=== PATIENT | female | born 1965 | race Caucasian/White ===

== ENCOUNTER 2016-08-29 20:02 | Emergency (ER) | payer OTHER ==
[2016-08-29] MEDS ORDERED: ORPHENADRINE 30 MG/ML 2 ML VIAL IM STA (22:30)
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
--- NOTE | 2016-08-29 23:17 | XR ---
EXAMINATION TYPE: XR cervical spine comp DATE OF EXAM: 08/29/2016 10:42 PM CLINICAL HISTORY: Neck pain after seizure. COMPARISON: 05/11/2016 TECHNIQUE: Frontal, lateral, oblique, swimmers, and open mouth view of the cervical spine are obtaine d. FINDINGS: There is straightening of normal cervical lordosis probably related to pain and muscle spasm. The cervical spine is visualized in its entirety from C1 thru the top of T1 level. It is satisfactor y in alignment without evidence of acute fracture or dislocation. The C7 vertebra is somewhat poorly visualized in the lateral view.. The pre-vertebral soft tissue appears within normal limits. Disc sp aces are well preserved. The C1-C2 articulation is unremarkable on the open mouth view. The oblique images are within normal limits. Multilevel mild degenerative changes and endplate spondylosis is not ed with facet joint arthrosis in the cervical spine. IMPRESSION: No acute fracture or dislocation is seen in the cervical spine. The C7 vertebra is somew hat poorly visualized in the lateral view. Multilevel mild degenerative changes in the cervical spine. If clinical symptoms persist a CT scan or MRI scan would be helpful. There is no significant interval change. ICD 10 NO FRACTURE, INITIAL EVALUATION
--- NOTE | 2016-08-30 00:54 | US ---
EXAMINATION TYPE: US venous doppler duplex LE LT DATE OF EXAM: 08/29/2016 11:44 PM COMPARISON: on PACS CLINICAL HISTORY: left leg pain, hx of blood clot in left leg, not on blood thinners. SIDE PERFORMED: Left VESSELS IMAGED: External Iliac Vein (EIV) Common Femoral Vein Deep Femoral Vein Greater Saphenous Vein * Femoral Vein Popliteal Vein Small Saphenous Vein * Proximal Calf Veins (* superficial vessels Normal phasic flow, augmentation and compression is demonstrated in the left common femoral, superfic ial femoral and popliteal veins without definite evidence of acute deep venous thrombosis in the left lower extremity. IMPRESSION: 1. No definite evidence of deep venous thrombosis in the visualized left lower extremity deep veins. 2. No significant interval change.
[2016-08-30 01:10] VITALS: BP 132/72; PULSE 82; RESP 18; TEMP 96.5
== END 2016-08-30 01:19 | disposition home or self-care (01) ==
LOC: EC 20:02
DX: M62.838 Other muscle spasm (principal); M79.605 Pain in left leg; E11.9 Type 2 diabetes mellitus without complications; J45.909 Unspecified asthma, uncomplicated; G40.909 Epilepsy, unspecified, not intractable, without status epilepticus; M79.7 Fibromyalgia; I10 Essential (primary) hypertension; G43.909 Migraine, unspecified, not intractable, without status migrainosus; K21.9 Gastro-esophageal reflux disease without esophagitis; M19.90 Unspecified osteoarthritis, unspecified site; E66.01 Morbid (severe) obesity due to excess calories; Z79.899 Other long term (current) drug therapy; Z86.718 Personal history of other venous thrombosis and embolism; Z79.4 Long term (current) use of insulin; Z79.84 Long term (current) use of oral hypoglycemic drugs; G89.29 Other chronic pain; Z88.8 Allergy status to other drugs, medicaments and biological substances; Z88.5 Allergy status to narcotic agent; Z88.0 Allergy status to penicillin; Z91.040 Latex allergy status; Z88.1 Allergy status to other antibiotic agents; Z88.2 Allergy status to sulfonamides; Z91.048 Other nonmedicinal substance allergy status; Z79.891 Long term (current) use of opiate analgesic; Z68.43 Body mass index [BMI] 50.0-59.9, adult
CPT/HCPCS: 96372; 99284; 72050; 93971; J2360

== ENCOUNTER 2016-10-08 06:12 | Emergency (ER) | payer OTHER ==
[2016-10-08 06:18] VITALS: BP 131/80; PULSE 100; RESP 20; TEMP 97.7
[2016-10-08] MEDS ORDERED: KETOROLAC 60 MG/2 ML VIAL IM STA (06:35)
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
== END 2016-10-08 06:45 | disposition home or self-care (01) ==
LOC: EC 06:12
DX: G89.29 Other chronic pain (principal); M79.601 Pain in right arm; M54.9 Dorsalgia, unspecified; E11.9 Type 2 diabetes mellitus without complications; I10 Essential (primary) hypertension; G40.909 Epilepsy, unspecified, not intractable, without status epilepticus; M79.7 Fibromyalgia; J45.909 Unspecified asthma, uncomplicated; Z86.718 Personal history of other venous thrombosis and embolism; E66.01 Morbid (severe) obesity due to excess calories; G43.909 Migraine, unspecified, not intractable, without status migrainosus; Z79.4 Long term (current) use of insulin; Z79.84 Long term (current) use of oral hypoglycemic drugs; Z79.51 Long term (current) use of inhaled steroids; Z79.891 Long term (current) use of opiate analgesic; Z79.899 Other long term (current) drug therapy; Z88.0 Allergy status to penicillin; Z88.5 Allergy status to narcotic agent; Z88.6 Allergy status to analgesic agent; Z88.1 Allergy status to other antibiotic agents; Z88.2 Allergy status to sulfonamides; Z91.040 Latex allergy status; M19.90 Unspecified osteoarthritis, unspecified site
CPT/HCPCS: 99283; 96372; J1885

== ENCOUNTER → 2016-10-08 | Outpatient (CLI) | payer OTHER ==
--- NOTE | 2016-10-11 12:36 | MM ---
Reason for exam: screening (asymptomatic). Last mammogram was performed 1 year and 3 months ago. History: Patient is postmenopausal. Family history of breast cancer in mother at age 60. Cancelled Right US Needle Biopsy of the right breast, April 03, 2007. Physical Findings: A clinical breast exam by your physician is recommended on an annual basis and results should be correlated with mammographic findings. MG Screening Mammo w CAD Bilateral CC and MLO view(s) were taken. Prior study comparison: July 09, 2015, bilateral MG screening mammo w CAD. June 04, 2014, bilateral MG screening mammo w CAD. June 18, 2013, [facility] DIGITAL BILATERAL MAMMOGRAM w/CAD. There are scattered fibroglandular densities. There is chronic nodularity in the left breast. Bilateral vascular and secretory calcifications are benign and unchanged. No significant changes when compared with prior studies. ASSESSMENT: Negative, BI-RAD 1 RECOMMENDATION: Routine screening mammogram of both breasts in 1 year.
== END | disposition home or self-care (01) ==
LOC: RADMAMWWP 15:21
PROVIDERS: ATTEND Family Medicine
DX: Z12.31 Encounter for screening mammogram for malignant neoplasm of breast (principal)

== ENCOUNTER 2016-10-21 22:18 | Emergency (ER) | payer OTHER ==
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
[2016-10-21] MEDS ORDERED: SODIUM CHLORIDE 0.9% 1,000 ML IV ONE (22:48)
[2016-10-21 23:06] LABS: Basophils # (A) 0.1 k/uL (0-0.2); Basophils % (A) 1 %; CH 30.5; CHCM 32.8; Eosinophils # (A) 0.5 k/uL (0-0.7); Eosinophils % (A) 5 %; HCT 47.7 % (34.0-46.0); HDW 2.68; HGB 15.3 gm/dL (11.4-16.0); Luc # (Auto) 0.35; Luc % (Auto) 4; Lymphocytes # (A) 3.6 k/uL (1.0-4.8); Lymphocytes % (A) 36 %; MCH 29.9 pg (25.0-35.0); MCV 93.2 fL (80.0-100.0); Mean Platelet Volume 7.4; Monocytes # (A) 0.4 k/uL (0-1.0); Monocytes % (A) 4 %; Neutrophils # (A) 5.1 k/uL (1.3-7.7); Neutrophils % (A) 51 %; RBC 5.12 m/uL (3.80-5.40); RDW 13.1 % (11.5-15.5); WBC 10.1 k/uL (3.8-10.6)
[2016-10-21 23:17] LABS: Calcium 9.6 mg/dL (8.4-10.2); Potassium 4.5 mmol/L (3.5-5.1); Total Bilirubin 1.2 mg/dL (0.2-1.3); Total Protein 7.9 g/dL (6.3-8.2)
[2016-10-21] MEDS ORDERED: MORPHINE SULFATE ER 30 MG TABLET PO STA (23:21)
[2016-10-21 23:23] LABS: INR 1.1 (<1.1); Partial Thromboplastin Time 21.2 sec (22.0-30.0)
--- NOTE | 2016-10-22 00:04 | US ---
EXAM: US Duplex Right Upper Extremity Veins. CLINICAL HISTORY: Reason: Pain TECHNIQUE: Real-time ultrasound scan of the veins of the right upper extremity with color Doppler flow, spectral waveform analysis and compression. COMPARISON: No relevant prior studies available. FINDINGS: Deep veins: Unremarkable. No DVT in the internal jugular, subclavian, axillary, or brachial veins. Superficial veins: Unremarkable. No thrombus in the visualized superficial veins. Soft tissues: No acute findings. IMPRESSION: Normal right upper extremity duplex venous ultrasound.
[2016-10-22 00:11] VITALS: BP 106/70; PULSE 91; RESP 18; TEMP 98.2
== END 2016-10-22 00:20 | disposition home or self-care (01) ==
LOC: EC 22:18
DX: M79.601 Pain in right arm (principal); G89.29 Other chronic pain; E11.9 Type 2 diabetes mellitus without complications; J45.909 Unspecified asthma, uncomplicated; E66.01 Morbid (severe) obesity due to excess calories; I10 Essential (primary) hypertension; M79.7 Fibromyalgia; G40.909 Epilepsy, unspecified, not intractable, without status epilepticus; M19.90 Unspecified osteoarthritis, unspecified site; Z79.84 Long term (current) use of oral hypoglycemic drugs; Z86.718 Personal history of other venous thrombosis and embolism; Z79.4 Long term (current) use of insulin; Z88.5 Allergy status to narcotic agent; Z88.0 Allergy status to penicillin; Z91.040 Latex allergy status; Z88.2 Allergy status to sulfonamides; Z91.048 Other nonmedicinal substance allergy status; Z79.899 Other long term (current) drug therapy; Z79.891 Long term (current) use of opiate analgesic; Z79.51 Long term (current) use of inhaled steroids
CPT/HCPCS: 36415; 80053; 84439; 84443; 85025; 85610; 85730; 93005; 96360; 99284

== ENCOUNTER → 2016-11-01 | Outpatient (CLI) | payer OTHER ==
[2016-11-01 13:32] LABS: CH 30.5; CHCM 32.1; HCT 46.3 % (34.0-46.0); HDW 2.54; HGB 14.6 gm/dL (11.4-16.0); MCH 30.1 pg (25.0-35.0); MCHC 31.6 g/dL (31.0-37.0); MCV 95.2 fL (80.0-100.0); Mean Platelet Volume 9.1; RBC 4.86 m/uL (3.80-5.40); RDW 12.6 % (11.5-15.5); WBC 6.7 k/uL (3.8-10.6)
[2016-11-01 13:51] LABS: ALT 74 U/L (9-52); AST 48 U/L (14-36); Alkaline Phosphatase 192 U/L (38-126); Anion Gap 12 mmol/L; Blood Urea Nitrogen 28 mg/dL (7-17); Calcium 9.7 mg/dL (8.4-10.2); Carbon Dioxide 26 mmol/L (22-30); Chloride 100 mmol/L (98-107); Glucose 407 mg/dL (74-99); Magnesium 1.6 mg/dL (1.6-2.3); Non-African American GFR(MDRD) 52 (>60 ml/min/1.73 sqM); Potassium 4.5 mmol/L (3.5-5.1); Sodium 138 mmol/L (137-145); Total Bilirubin 0.6 mg/dL (0.2-1.3); Total Protein 7.6 g/dL (6.3-8.2)
== END | disposition home or self-care (01) ==
LOC: LABWHC1 12:58
PROVIDERS: ATTEND Family Medicine
DX: G62.9 Polyneuropathy, unspecified (principal); E11.65 Type 2 diabetes mellitus with hyperglycemia
CPT/HCPCS: 36415; 80053; 83036; 83735; 83921; 84443; 85027

== ENCOUNTER → 2016-11-08 | Outpatient (CLI) | payer OTHER ==
--- NOTE | 2016-11-10 14:48 | P.ARTDOP ---
Arterial Doppler Upper EXTREMITY ARTERIAL DOPPLER: DATE OF SERVICE: 11/08/2016 Reason for study: Right arm burning and pain. Doppler waveforms: Multiphasic bilaterally throughout. Pressure gradients: No right to left or segmental pressure gradients. Impression: Normal upper extremity arterial Doppler down to the wrist. Also note finger pressures are normal..
== END ==
LOC: RADUSWWP 12:58
PROVIDERS: ATTEND Family Medicine
DX: R51 Headache (principal); R29.898 Other symptoms and signs involving the musculoskeletal system; E11.40 Type 2 diabetes mellitus with diabetic neuropathy, unspecified; M79.601 Pain in right arm
CPT/HCPCS: 93923

== ENCOUNTER 2016-11-20 23:04 | Emergency (ER) | payer OTHER ==
[2016-11-21 01:06] LABS: Basophils # (A) 0.1 k/uL (0-0.2); Basophils % (A) 1 %; CH 30.1; CHCM 32.9; Eosinophils # (A) 0.2 k/uL (0-0.7); Eosinophils % (A) 2 %; HCT 44.7 % (34.0-46.0); HDW 2.63; HGB 14.3 gm/dL (11.4-16.0); Luc # (Auto) 0.28; Luc % (Auto) 3; Lymphocytes # (A) 3.7 k/uL (1.0-4.8); Lymphocytes % (A) 34 %; MCH 29.4 pg (25.0-35.0); MCV 91.9 fL (80.0-100.0); Mean Platelet Volume 7.3; Monocytes # (A) 0.6 k/uL (0-1.0); Monocytes % (A) 6 %; Neutrophils # (A) 5.7 k/uL (1.3-7.7); Neutrophils % (A) 54 %; RBC 4.86 m/uL (3.80-5.40); RDW 12.6 % (11.5-15.5); WBC 10.6 k/uL (3.8-10.6); WBC (Perox) 10.84
[2016-11-21 01:20] LABS: C Reactive Protein 14.2 mg/L (<10.0); Calcium 10.2 mg/dL (8.4-10.2); Potassium 4.3 mmol/L (3.5-5.1)
--- NOTE | 2016-11-21 01:53 | XR ---
EXAM: XR Cervical Spine, 4 or 5 Views. CLINICAL HISTORY: Reason: Pain TECHNIQUE: Frontal, lateral and oblique views of the cervical spine. COMPARISON: 08/29/16 radiographs. FINDINGS: Vertebrae: The cervicothoracic junction is again poorly seen on the single lateral view, with grossly intact vertebral body heights and alignment at that level on the AP and bilateral oblique views. Otherwise, vertebral body heights and alignment are maintained without acute fracture seen. There is again mild straightening of the normal cervical lordosis, that is nonspecific. Disc spaces: No acute findings. There is mild multilevel cervical spondylosis including endplate, uncovertebral and facet degenerative changes. There is associated bilateral foraminal narrowing most apparent at C3-4 and C4-5. Soft tissues: The prevertebral soft tissues are within normal limits. IMPRESSION: 1. Evaluation of the cervicothoracic junction is again limited on the lateral view. Allowing for this, no interval compression deformity, acute fracture or change in alignment is seen. 2. Clinical clearance of the cervical spine is still recommended. 3. Cervical spondylosis and nonspecific straightening of the normal cervical lordosis again present, as above.
[2016-11-21 02:34] VITALS: RESP 18
[2016-11-21] MEDS ORDERED: HYDROcodone/APAP 7.5-325MG 1 EACH TAB PO ONE (04:22)
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
[2016-11-21] MEDS ORDERED: MORPHINE SULFATE 4 MG/ML SYRINGE IV STA (04:45)
[2016-11-21] MEDS ORDERED: SODIUM CHLORIDE 0.9% 1,000 ML IV ONE (04:45)
[2016-11-21 06:35] VITALS: BP 98/59; PULSE 82; TEMP 97.9
== END 2016-11-21 07:12 | disposition left against medical advice (07) ==
LOC: EC 23:04
DX: N17.9 Acute kidney failure, unspecified (principal); I12.9 Hypertensive chronic kidney disease with stage 1 through stage 4 chronic kidney disease, or unspecified chronic kidney disease; M54.2 Cervicalgia; N18.9 Chronic kidney disease, unspecified; E11.9 Type 2 diabetes mellitus without complications; M79.7 Fibromyalgia; K21.9 Gastro-esophageal reflux disease without esophagitis; G40.909 Epilepsy, unspecified, not intractable, without status epilepticus; M19.90 Unspecified osteoarthritis, unspecified site; E66.01 Morbid (severe) obesity due to excess calories; Z79.4 Long term (current) use of insulin; Z79.84 Long term (current) use of oral hypoglycemic drugs; Z79.51 Long term (current) use of inhaled steroids; Z79.891 Long term (current) use of opiate analgesic; Z79.899 Other long term (current) drug therapy; Z88.0 Allergy status to penicillin; Z88.1 Allergy status to other antibiotic agents; Z88.2 Allergy status to sulfonamides; Z88.5 Allergy status to narcotic agent; Z88.6 Allergy status to analgesic agent; Z91.040 Latex allergy status; Z86.718 Personal history of other venous thrombosis and embolism
CPT/HCPCS: 36415; 72050; 80048; 84484; 85025; 86140; 93005; 96360; 96361; 99284

== ENCOUNTER 2016-11-21 08:59 | Inpatient (IN) | payer OTHER ==
[2016-11-21 09:58] LABS: Basophils # (A) 0.1 k/uL (0-0.2); Basophils % (A) 1 %; CH 30.2; CHCM 32.5; Eosinophils # (A) 0.5 k/uL (0-0.7); Eosinophils % (A) 4 %; HCT 43.2 % (34.0-46.0); HDW 2.59; HGB 14.1 gm/dL (11.4-16.0); Luc # (Auto) 0.39; Luc % (Auto) 3; Lymphocytes # (A) 4.6 k/uL (1.0-4.8); Lymphocytes % (A) 36 %; MCH 30.4 pg (25.0-35.0); MCHC 32.6 g/dL (31.0-37.0); MCV 93.3 fL (80.0-100.0); Mean Platelet Volume 7.5; Monocytes # (A) 0.8 k/uL (0-1.0); Monocytes % (A) 6 %; Neutrophils # (A) 6.5 k/uL (1.3-7.7); Neutrophils % (A) 51 %; RBC 4.63 m/uL (3.80-5.40); RDW 12.9 % (11.5-15.5); WBC 12.9 k/uL (3.8-10.6); WBC (Perox) 13.11
[2016-11-21 10:06] LABS: Calcium 9.7 mg/dL (8.4-10.2); Total Bilirubin 0.7 mg/dL (0.2-1.3); Total Protein 7.6 g/dL (6.3-8.2)
[2016-11-21 10:13] LABS: Magnesium 1.4 mg/dL (1.6-2.3); Potassium 4.8 mmol/L (3.5-5.1)
[2016-11-21 10:16] LABS: Creatine Kinase 514 U/L (30-135)
--- NOTE | 2016-11-21 10:26 | XR ---
EXAMINATION TYPE: XR chest 2V DATE OF EXAM: 11/21/2016 10:13 AM HISTORY: Chest Pain. REFERENCE: Previous study dated 02/05/2015. FINDINGS: The lungs are clear. Pleural spaces are clear. The heart is not enlarged. IMPRESSION: NORMAL CHEST.
[2016-11-21 10:29] LABS: Troponin I <0.012 ng/mL (0.000-0.034)
[2016-11-21 10:33] LABS: Creatine Kinase MB 6.5 ng/mL (0.0-2.4)
[2016-11-21] MEDS ORDERED: LORazepam 2 MG/ML SYRINGE IV STA (10:46)
[2016-11-21] MEDS ORDERED: SODIUM CHLORIDE 0.9% 1,000 ML IV STA (10:48)
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
[2016-11-21] MEDS ORDERED: INSULIN REGULAR 100 UNIT/ML VIAL IV ONE (11:24)
[2016-11-21] MEDS ORDERED: INSULIN REGULAR 100 UNIT/ML VIAL SQ ONE (11:24)
--- NOTE | 2016-11-21 11:35 | CT ---
EXAMINATION TYPE: CT cervical spine wo con DATE OF EXAM: 11/21/2016 11:24 AM COMPARISON: None. HISTORY: neck pain and numbness CT DLP: 999.8 mGycm Automated exposure control for dose reduction was used. TECHNIQUE: CT scan of the cervical spine is obtained without contrast, axial images are obtained, sa gittal and coronal reformatted images are also reviewed. FINDINGS: Visualized portions of the lungs are clear. There is a 9.6 mm left-sided thyroid nodule. Pr evertebral soft tissues are otherwise normal. There is some straightening of the normal cervical lordosis. Alignment is normal. There are small oss ific fragments both above and below the arch of C1. There is no associated soft tissue swelling. Thes e do not represent acute fractures. There is mild, diffuse disc space loss with relative sparing of C2-3. There is mild hypertrophic spon dylosis at C4-5. There is mild, diffuse uncovertebral joint disease. There is facet arthropathy on th e right at C2-3 and bilaterally at C3-4 there is no significant compressive discopathy. There is left -sided intervertebral foraminal narrowing at C3-4. There is bilateral intervertebral foraminal narrow ing at C4-5. IMPRESSION: 1. No acute osseous lesion. 2. Degenerative change. 3. No significant compressive discopathy. 4. Multilevel intervertebral foraminal narrowing.
[2016-11-21 12:28] LABS: INR 1.1 (<1.1); Partial Thromboplastin Time 22.1 sec (22.0-30.0); Prothrombin Time 11.1 sec (9.0-12.0)
[2016-11-21] MEDS ORDERED: NALOXONE 0.4 MG/ML 1 ML VIAL IV PRN ×2 (12:32→19:44)
[2016-11-21] MEDS ORDERED: ALBUTEROL NEBULIZED 2.5 MG/3 ML INHALATION PRN (12:39)
[2016-11-21 13:02] LABS: Glucose,Whole Blood 327 mg/dL (75-99)
[2016-11-21] MEDS ORDERED: SODIUM CHLORIDE 0.9% 1,000 ML IV ONE (13:06)
[2016-11-21 14:36] LABS: Glucose,Whole Blood 179 mg/dL (75-99)
[2016-11-21 14:53] LABS: Appearance,Urine Cloudy (Clear); Bacteria,Urine Rare /hpf; Bilirubin,Urine Negative (Negative); Glucose,Urine (UA) 3+ (Negative); Ketones,Urine Negative (Negative); Leukocyte Esterase,Urine Large (Negative); Mucus,Urine Occasional /hpf; Nitrite,Urine Negative (Negative); Particle Count 42469; Protein,Urine 1+ (Negative); RBC,Urine 17 /hpf (0-5); Specific Gravity,Urine 1.018 (1.001-1.035); Squamous Epithelial Cell,Urine 13 /hpf (0-4); UA Billing (MACRO vs. MICRO) MICRO; Urobilinogen,Urine <2.0 mg/dL (<2.0); WBC,Urine 41 /hpf (0-5)
[2016-11-21] MEDS ORDERED: cefTRIAXone 2,000 MG in SODIUM CHLORIDE 0.9% 100 ML IVPB STA (15:14)
[2016-11-21] MEDS: NOREPINEPHRINE 4 MG in SODIUM CHLORIDE 0.9% 250 ML IV SCH (15:29)
[2016-11-21] MEDS: MORPHINE SULFATE IR 15 MG TABLET PO SCH ×3 (15:45→22:42)
[2016-11-21 18:34] LABS: Glucose,Whole Blood 257 mg/dL (75-99)
[2016-11-21] MEDS: GABAPENTIN 400 MG CAP PO SCH ×3 (18:54→23:23)
[2016-11-21] MEDS: SODIUM CHLORIDE 0.9% 1,000 ML IV SCH (19:45)
[2016-11-21] MEDS ORDERED: Magnesium Replacement Protocol 1 EACH MISC MISCELLANE PRN (19:48)
[2016-11-21] MEDS: glipiZIDE 10 MG TAB PO SCH (19:51)
[2016-11-21] MEDS: INSULIN LISPRO (humaLOG) 300 UNIT/3 ML VIAL SQ SCH ×2 (19:52→21:27)
[2016-11-21] MEDS: MAGNESIUM SULFATE-D5W PMX 1 GM in DEXTROSE/WATER 1 100ML.BAG IVPB SCH ×3 (20:00→23:57)
[2016-11-21 20:16] LABS: Glucose,Whole Blood 280 mg/dL (75-99)
[2016-11-21 22:32] VITALS: BMI 53.8
[2016-11-21] MEDS: TOPIRAMATE 100 MG TAB PO SCH (22:39)
[2016-11-21] MEDS: QUEtiapine 100 MG TAB PO SCH (22:39)
[2016-11-21] MEDS: HEPARIN SODIUM,PORCINE 5,000 UNIT/ML 1 ML VIAL SQ SCH (23:24)
[2016-11-22] MEDS: INSULIN LISPRO (humaLOG) 300 UNIT/3 ML VIAL SQ SCH ×3 (02:51→08:21)
[2016-11-22 02:53] LABS: Glucose,Whole Blood 215 mg/dL (75-99)
[2016-11-22 05:00] LABS: Basophils # (A) 0.1 k/uL (0-0.2); Basophils % (A) 1 %; CH 30.2; CHCM 32.4; Eosinophils # (A) 0.5 k/uL (0-0.7); Eosinophils % (A) 5 %; HCT 39.4 % (34.0-46.0); HDW 2.63; HGB 12.5 gm/dL (11.4-16.0); Luc # (Auto) 0.26; Luc % (Auto) 3; Lymphocytes # (A) 3.5 k/uL (1.0-4.8); Lymphocytes % (A) 37 %; MCH 29.7 pg (25.0-35.0); MCHC 31.7 g/dL (31.0-37.0); MCV 93.5 fL (80.0-100.0); Monocytes # (A) 0.5 k/uL (0-1.0); Monocytes % (A) 5 %; Neutrophils # (A) 4.6 k/uL (1.3-7.7); Neutrophils % (A) 49 %; RBC 4.21 m/uL (3.80-5.40); RDW 12.6 % (11.5-15.5); WBC 9.4 k/uL (3.8-10.6); WBC (Perox) 10.55
[2016-11-22 05:09] LABS: Calcium 8.5 mg/dL (8.4-10.2); Magnesium 2.1 mg/dL (1.6-2.3); Phosphorous 5.1 mg/dL (2.5-4.5); Potassium 4.1 mmol/L (3.5-5.1); Total Bilirubin 0.5 mg/dL (0.2-1.3); Total Protein 6.6 g/dL (6.3-8.2)
[2016-11-22 05:43] LABS: Manual Review Performed
[2016-11-22] MEDS: SODIUM CHLORIDE 0.9% 1,000 ML IV SCH ×2 (07:54→15:21)
[2016-11-22 08:04] LABS: Glucose,Whole Blood 254 mg/dL (75-99)
[2016-11-22] MEDS: glipiZIDE 10 MG TAB PO SCH (08:20)
[2016-11-22] MEDS: PANTOPRAZOLE 40 MG TABLET PO SCH (08:21)
[2016-11-22] MEDS: HEPARIN SODIUM,PORCINE 5,000 UNIT/ML 1 ML VIAL SQ SCH ×2 (08:22→15:22)
[2016-11-22] MEDS: GABAPENTIN 400 MG CAP PO SCH (08:22)
[2016-11-22] MEDS: LORATADINE 10 MG TAB PO SCH (08:23)
[2016-11-22] MEDS: TOPIRAMATE 100 MG TAB PO SCH ×2 (08:23→20:33)
[2016-11-22] MEDS: CYCLOBENZAPRINE 10 MG TAB PO SCH (08:23)
[2016-11-22] MEDS: NYSTATIN 100,000 UNIT/GM POWD 15 GM TOPICAL SCH ×3 (08:23→20:34)
[2016-11-22] MEDS: MORPHINE SULFATE IR 15 MG TABLET PO SCH ×4 (08:25→20:36)
[2016-11-22] MEDS ORDERED: LINAGLIPTIN 5 MG TABLET PO SCH (09:00)
[2016-11-22] MEDS ORDERED: INSULIN GLARGINE 100 UNIT/ML 10 ML VIAL SQ SCH (09:00)
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
[2016-11-22] MEDS: NOREPINEPHRINE 4 MG in SODIUM CHLORIDE 0.9% 250 ML IV SCH (09:57)
[2016-11-22 12:07] LABS: Glucose,Whole Blood 285 mg/dL (75-99)
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
[2016-11-22] MEDS ORDERED: LORazepam 2 MG/ML SYRINGE IV PRN (12:16)
[2016-11-22] MEDS ORDERED: IV VANCOMYCIN PER PHARMACY 1 EACH MISC MISCELLANE PRN (12:17)
[2016-11-22] MEDS ORDERED: SODIUM CHLORIDE 0.9% 1,000 ML IV ONE ×2 (12:19→16:36)
[2016-11-22] MEDS ORDERED: VANCOMYCIN 2,000 MG in SODIUM CHLORIDE 0.9% 500 ML IVPB ONE (13:00)
[2016-11-22] MEDS: cefTRIAXone 2,000 MG in SODIUM CHLORIDE 0.9% 100 ML IVPB SCH (13:02)
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
[2016-11-22] MEDS: INSULIN REGULAR 100 UNIT in SODIUM CHLORIDE 0.9% 100 ML IV SCH (13:19)
[2016-11-22 13:20] LABS: Glucose,Whole Blood 232 mg/dL (75-99)
[2016-11-22 14:02] LABS: Glucose,Whole Blood 267 mg/dL (75-99)
--- NOTE | 2016-11-22 14:13 | US ---
EXAMINATION TYPE: US kidneys/renal and bladder DATE OF EXAM: 11/22/2016 1:36 PM COMPARISON: NONE CLINICAL HISTORY: BAY. Elevated creatinine as per RN EXAM MEASUREMENTS: Right Kidney: 9.6 x 4.8 x 6.7 cm Left Kidney: 11.9 x 5.5 x 4.8 cm limited by very large body habitus Right Kidney: No hydronephrosis or nephrolithiasis seen Left Kidney: No hydronephrosis or nephrolithiasis seen Bladder: empty Bilateral Jets seen: no There is no evidence for hydronephrosis at this point in time. No nephrolithiasis is seen. No miriam s are identified. The urinary bladder is limited due to incomplete distention.. IMPRESSION: No evidence of acute process.
--- NOTE | 2016-11-22 14:14 | US ---
EXAMINATION TYPE: US venous doppler duplex LE BI DATE OF EXAM: 11/22/2016 1:37 PM COMPARISON: NONE CLINICAL HISTORY: pain. High thigh pain left SIDE PERFORMED: bilateral VESSELS IMAGED: External Iliac Vein (EI) Common Femoral Vein Deep Femoral Vein Greater Saphenous Vein * Femoral Vein Popliteal Vein Small Saphenous Vein * (* superficial vessels) technically limited by patient very large body habitus ( abdominal probe used to image vessels) and agitation Right Leg: Negative for DVT Left Leg: Negative for DVT IMPRESSION: 1. Limited exam as discussed above. No diagnostic evidence of DVT as visualized. Correlate clinically given limitation of the exam.
[2016-11-22 15:11] LABS: Glucose,Whole Blood 275 mg/dL (75-99)
[2016-11-22] MEDS: GABAPENTIN 100 MG CAP PO SCH ×2 (15:22→20:33)
[2016-11-22 16:00] LABS: Glucose,Whole Blood 249 mg/dL (75-99)
[2016-11-22 17:05] LABS: Glucose,Whole Blood 220 mg/dL (75-99)
[2016-11-22 18:07] LABS: Glucose,Whole Blood 208 mg/dL (75-99)
[2016-11-22 18:59] LABS: Glucose,Whole Blood 186 mg/dL (75-99)
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
[2016-11-22 20:14] LABS: Glucose,Whole Blood 172 mg/dL (75-99)
[2016-11-22] MEDS: QUEtiapine 100 MG TAB PO SCH (20:33)
[2016-11-22 21:20] LABS: Glucose,Whole Blood 220 mg/dL (75-99)
[2016-11-22 22:06] LABS: Glucose,Whole Blood 228 mg/dL (75-99)
[2016-11-23 00:09] LABS: Glucose,Whole Blood 259 mg/dL (75-99)
[2016-11-23] MEDS: SODIUM CHLORIDE 0.9% 1,000 ML IV SCH ×3 (01:20→21:47)
[2016-11-23 01:58] LABS: Glucose,Whole Blood 215 mg/dL (75-99)
[2016-11-23] MEDS: MORPHINE SULFATE IR 15 MG TABLET PO SCH ×5 (01:58→21:45)
[2016-11-23] MEDS: HEPARIN SODIUM,PORCINE 5,000 UNIT/ML 1 ML VIAL SQ SCH ×3 (01:59→16:00)
[2016-11-23 04:13] LABS: Glucose,Whole Blood 165 mg/dL (75-99)
[2016-11-23 05:20] LABS: Basophils # (A) 0.1 k/uL (0-0.2); Basophils % (A) 1 %; CH 30.1; Eosinophils # (A) 0.3 k/uL (0-0.7); Eosinophils % (A) 6 %; HCT 34.2 % (34.0-46.0); HDW 2.65; HGB 11.5 gm/dL (11.4-16.0); Luc # (Auto) 0.16; Luc % (Auto) 3; Lymphocytes # (A) 2.2 k/uL (1.0-4.8); Lymphocytes % (A) 40 %; MCH 30.8 pg (25.0-35.0); MCHC 33.6 g/dL (31.0-37.0); MCV 91.7 fL (80.0-100.0); Mean Platelet Volume 7.3; Monocytes # (A) 0.4 k/uL (0-1.0); Monocytes % (A) 7 %; Neutrophils # (A) 2.3 k/uL (1.3-7.7); Neutrophils % (A) 43 %; RBC 3.73 m/uL (3.80-5.40); RDW 12.9 % (11.5-15.5); WBC 5.4 k/uL (3.8-10.6); WBC (Perox) 5.64
[2016-11-23 05:31] LABS: Glucose,Whole Blood 154 mg/dL (75-99)
[2016-11-23] MEDS: INSULIN REGULAR 100 UNIT in SODIUM CHLORIDE 0.9% 100 ML IV SCH (05:31)
[2016-11-23 05:38] LABS: Calcium 7.5 mg/dL (8.4-10.2); Magnesium 1.8 mg/dL (1.6-2.3); Phosphorous 2.9 mg/dL (2.5-4.5); Total Bilirubin 0.2 mg/dL (0.2-1.3); Total Protein 5.6 g/dL (6.3-8.2)
[2016-11-23] MEDS ORDERED: Magnesium Replacement Protocol 1 EACH MISC MISCELLANE PRN (05:55)
[2016-11-23] MEDS ORDERED: VANCOMYCIN 2,000 MG in SODIUM CHLORIDE 0.9% 500 ML IVPB SCH (06:00)
[2016-11-23] MEDS: MAGNESIUM SULFATE-D5W PMX 1 GM in DEXTROSE/WATER 1 100ML.BAG IVPB SCH ×2 (06:17→08:02)
[2016-11-23 07:02] LABS: Glucose,Whole Blood 149 mg/dL (75-99)
[2016-11-23 08:01] LABS: Glucose,Whole Blood 141 mg/dL (75-99)
[2016-11-23] MEDS: PANTOPRAZOLE 40 MG TABLET PO SCH (08:03)
[2016-11-23] MEDS: CYCLOBENZAPRINE 10 MG TAB PO SCH (08:04)
[2016-11-23] MEDS: GABAPENTIN 100 MG CAP PO SCH ×3 (08:05→21:45)
[2016-11-23] MEDS: NYSTATIN 100,000 UNIT/GM POWD 15 GM TOPICAL SCH ×3 (08:05→21:56)
[2016-11-23] MEDS: TOPIRAMATE 100 MG TAB PO SCH ×2 (08:05→21:45)
[2016-11-23] MEDS: LORATADINE 10 MG TAB PO SCH (08:05)
[2016-11-23] MEDS ORDERED: [UNRECOGNIZED DRUG - OTHER] PO SCH (09:00)
--- NOTE | 2016-11-23 09:04 | P.PN ---
Subjective A critically care consultation was requested on this 51-year-old morbidly obese female patient due to hypotension. The patient presented emergency department yesterday having neck pain and subsequently became evident that the pain was throughout her body knowing that the patient is having currently pain in her thigh, back, along with her neck. She has no neck stiffness. No headache. No change in mental status. No photophobia. CAT scan of the cervical spine was done and it showed no evidence of any epidural abscess or osseous lesions. The patient was subsequently found to be hypotensive. She was given IV fluids and despite that she remained hypotensive in the emergency department and based on that she was started on pressors and following that the patient was brought into the intensive care unit. My understanding is that the patient has received a total of 2 L of IV fluid in the form of normal saline and earlier this morning she was on norepinephrine infusion running at the rate of 10 mcg/m and the nurses were able to titrate off however at the time I december evaluation the patient's blood pressure was in the mid 70s systolic and the pressors were restarted. Her pain is waxing and waning and affecting throughout her body. The patient has no mental status change. The blood cultures showing gram- positive cocci. The patient has been given 2 g of Rocephin in the emergency department. The chest x-ray was clear and a urinalysis is showing white cell count of 41 with some rare bacteria. No lactic acid level has been obtained. No cardiac enzymes have been obtained. The patient was found to be in acute kidney injury. Her creatinine was at 2.7 and is currently down to 2.2 and she is producing adequate amount of urine output. The blood sugars were elevated and currently she is still elevated and her most recent blood sugar is at 254. She has a mild anion gap metabolic acidosis with a bicarb level of 20 and a gap of 15. No history of any cardiac disease. No history of congestion heart failure. The patient has had previous hospitalization for complications of diabetes mellitus. On 11/23/2016 the patient is being seen in follow-up. She is improved and she is hemodynamically stable and she is off pressors for the past 4-1/2 hours. The patient is a bit lethargic study and she is awake. The patient is following commands. The blood cultures came back coagulase-negative staph. The urine cultures came back positive for strep group B. The patient remains on a combination of Rocephin and vancomycin. We'll function is improving. Creatinine is down to 1.3. The urine output is adequate. The patient on insulin drip at 4 units an hour for blood sugar control. Lactic acid level was nonelevated. Ultrasound of the lower extremity showed no evidence of DVT. Ultrasound the kidneys was negative. The echo results are still pending. Objective - Vital Signs Vital signs: Vital Signs Temp 97.7 F 11/23/16 08:00 Pulse 72 11/23/16 08:00 Resp 12 11/23/16 08:00 BP 85/65 11/23/16 08:00 Pulse Ox 100 11/23/16 08:00 Intake & Output 11/22/16 11/23/16 11/23/16 18:59 06:59 18:59 Intake Total 4747.270 1915.526 461.728 Output Total 1369 2200 225 Balance 3378.270 -284.474 236.728 Weight 146.8 kg Intake: IV 1100 1397.8 100 Norepinephrine 4 mg In 97.8 Sodium Chloride 0.9% 250 ml @ Titrate IV .Q0M [facility] Rx#:[id number] Sodium Chloride 0.9% 1, 1100 1300 100 000 ml @ 100 mls/hr IV . Q10H [facility] Rx#:[id number] Intake, IV Titration 2897.270 267.726 111.728 Amount Insulin Regular 100 unit 42.166 58.834 11.728 In Sodium Chloride 0.9% 100 ml @ Per Protocol IV .Q0M [facility] Rx#:[id number] Magnesium Sulfate-D5w Pmx 100 100 1 gm In Dextrose/Water 1 100ml.bag @ 100 mls/hr IVPB Q1H [facility] Rx#: [id number] Norepinephrine 4 mg In 254.104 108.892 Sodium Chloride 0.9% 250 ml @ Titrate IV .Q0M [facility] Rx#:[id number] Sodium Chloride 0.9% 1, 1000 000 ml @ 999 mls/hr IV . Q1H1M ONE Rx#:[id number] Sodium Chloride 0.9% 1, 1000 000 ml @ 999 mls/hr IV . Q1H1M ONE Rx#:[id number] Vancomycin 2,000 mg In 501 Sodium Chloride 0.9% 500 ml @ 167 mls/hr IVPB ONCE ONE Rx#:[id number] cefTRIAXone 2,000 mg In 100 Sodium Chloride 0.9% 100 ml @ 100 mls/hr IVPB ONCE STA Rx#:[id number] Oral 750 250 250 Output: Urine 1369 2200 225 Other: Voiding Method Indwelling Catheter Indwelling Catheter Indwelling Catheter - Exam Morbidly obese, comfortable and calm, in acute distress.Head exam was generally normal. There was no scleral icterus or corneal arcus. Mucous membranes were moist. My normal neck the patient has significant crowding of the posterior oropharynx. The upper teeth are missing and the patient wears dentures. She has poor dentition and a lower jaw. Neck is supple. There is no neck stiffness. The patient is a full range of motion.Lungs were clear to auscultation and percussion, and with normal diaphragmatic excursion. No wheezes or rales were noted. Cardiac exam revealed the PMI to be normally situated and sized. The rhythm was regular and no extrasystoles were noted during several minutes of auscultation. The first and second heart sounds were normal and physiologic splitting of the second heart sound was noted. There were no murmurs, rubs, clicks, or gallops. Abdomen is soft and the organs cannot be accurately palpated as the patient is morbidly obese. There is no direct tenderness. There is no rebound tenderness. There is no guarding.Examination of the extremities revealed easily palpable radial, femoral and pedal pulses. There was no cyanosis, clubbing or edema. Neurologically the patient is awake and alert and neurologic exam is nonfocal. - Labs CBC & Chem 7: 11/23/16 04:33 11/23/16 04:33 Labs: Abnormal Lab Results - Last 24 Hours (Table) 11/22/16 11/22/16 11/22/16 Range/Units 04:33 12:05 12:28 RBC (3.80-5.40) m/uL ESR (0-20) mm/hr Chloride (98-107) mmol/L BUN (7-17) mg/dL Creatinine (0.52-1.04) mg/dL Glucose (74-99) mg/dL POC Glucose (mg/dL) 285 H (75-99) mg/dL Hemoglobin A1c 14.0 H (4.2-6.1) % Calcium (8.4-10.2) mg/dL Creatine Kinase 590 H (30-135) U/L Total Protein (6.3-8.2) g/dL Albumin (3.5-5.0) g/dL 11/22/16 11/22/16 11/22/16 Range/Units 13:19 14:01 15:10 RBC (3.80-5.40) m/uL ESR (0-20) mm/hr Chloride (98-107) mmol/L BUN (7-17) mg/dL Creatinine (0.52-1.04) mg/dL Glucose (74-99) mg/dL POC Glucose (mg/dL) 232 H 267 H 275 H (75-99) mg/dL Hemoglobin A1c (4.2-6.1) % Calcium (8.4-10.2) mg/dL Creatine Kinase (30-135) U/L Total Protein (6.3-8.2) g/dL Albumin (3.5-5.0) g/dL 11/22/16 11/22/16 11/22/16 Range/Units 15:58 17:04 18:06 RBC (3.80-5.40) m/uL ESR (0-20) mm/hr Chloride (98-107) mmol/L BUN (7-17) mg/dL Creatinine (0.52-1.04) mg/dL Glucose (74-99) mg/dL POC Glucose (mg/dL) 249 H 220 H 208 H (75-99) mg/dL Hemoglobin A1c (4.2-6.1) % Calcium (8.4-10.2) mg/dL Creatine Kinase (30-135) U/L Total Protein (6.3-8.2) g/dL Albumin (3.5-5.0) g/dL 11/22/16 11/22/16 11/22/16 Range/Units 18:57 19:40 20:12 RBC (3.80-5.40) m/uL ESR 37 H (0-20) mm/hr Chloride (98-107) mmol/L BUN (7-17) mg/dL Creatinine (0.52-1.04) mg/dL Glucose (74-99) mg/dL POC Glucose (mg/dL) 186 H 172 H (75-99) mg/dL Hemoglobin A1c (4.2-6.1) % Calcium (8.4-10.2) mg/dL Creatine Kinase (30-135) U/L Total Protein (6.3-8.2) g/dL Albumin (3.5-5.0) g/dL 11/22/16 11/22/16 11/23/16 Range/Units 21:19 22:05 00:08 RBC (3.80-5.40) m/uL ESR (0-20) mm/hr Chloride (98-107) mmol/L BUN (7-17) mg/dL Creatinine (0.52-1.04) mg/dL Glucose (74-99) mg/dL POC Glucose (mg/dL) 220 H 228 H 259 H (75-99) mg/dL Hemoglobin A1c (4.2-6.1) % Calcium (8.4-10.2) mg/dL Creatine Kinase (30-135) U/L Total Protein (6.3-8.2) g/dL Albumin (3.5-5.0) g/dL 11/23/16 11/23/16 11/23/16 Range/Units 01:56 04:11 04:33 RBC 3.73 L (3.80-5.40) m/uL ESR (0-20) mm/hr Chloride (98-107) mmol/L BUN (7-17) mg/dL Creatinine (0.52-1.04) mg/dL Glucose (74-99) mg/dL POC Glucose (mg/dL) 215 H 165 H (75-99) mg/dL Hemoglobin A1c (4.2-6.1) % Calcium (8.4-10.2) mg/dL Creatine Kinase (30-135) U/L Total Protein (6.3-8.2) g/dL Albumin (3.5-5.0) g/dL 11/23/16 11/23/16 11/23/16 Range/Units 04:33 05:30 07:00 RBC (3.80-5.40) m/uL ESR (0-20) mm/hr Chloride 112 H (98-107) mmol/L BUN 20 H (7-17) mg/dL Creatinine 1.30 H (0.52-1.04) mg/dL Glucose 161 H (74-99) mg/dL POC Glucose (mg/dL) 154 H 149 H (75-99) mg/dL Hemoglobin A1c (4.2-6.1) % Calcium 7.5 L (8.4-10.2) mg/dL Creatine Kinase (30-135) U/L Total Protein 5.6 L (6.3-8.2) g/dL Albumin 2.7 L (3.5-5.0) g/dL 11/23/16 Range/Units 07:59 RBC (3.80-5.40) m/uL ESR (0-20) mm/hr Chloride (98-107) mmol/L BUN (7-17) mg/dL Creatinine (0.52-1.04) mg/dL Glucose (74-99) mg/dL POC Glucose (mg/dL) 141 H (75-99) mg/dL Hemoglobin A1c (4.2-6.1) % Calcium (8.4-10.2) mg/dL Creatine Kinase (30-135) U/L Total Protein (6.3-8.2) g/dL Albumin (3.5-5.0) g/dL Microbiology - Last 24 Hours (Table) 11/21/16 14:45 Urine Culture - Final Urine,Voided Strep agalactiae - (group b) Assessment and Plan Plan: Assessment 1 acute hypotension, nonresponsive to fluid resuscitation and the patient is currently pressor dependent. Rule out septic shock knowing that the patient has gram-positive cocci in the blood and preliminary cultures have indicated positive gram-positive cocci. Further investigation needs to follow to identify source of an infection. On 11/23/2016, the patient's hypotension has recovered. We think it's a hypovolemic/septic hypotension. The blood cultures came back positive for coagulase-negative staph. There is a strep group B in the urine which probably is a representation of an underlying urine checked infection. The patient was covered with accommodation of Rocephin and vancomycin. I think the vancomycin can be discontinued. The fluid also can be switched to KVO as the patient is adequately resuscitated at this point. The patient is eating well. 2 acute kidney injury, nonoliguric, recovering 3 diabetes mellitus with a component of hyperglycemia and poorly controlled blood sugars, HbA1c was at 15 4 morbid obesity with a BMI 53.9 5 fibromyalgia with chronic pain 6 diffuse body aches including the neck back and thigh pain. No evidence of rhabdomyolysis 7 chronic insomnia 8 remote history of DVT, negative Dopplers 9 seizure disorder 10 bronchial asthma 11 chronic back pain Plan The patient will be given IV fluids and cut down the rate to 40 mL an hour. The patient will be taken off vancomycin. Continue Rocephin. We will stop the insulin drip it was this patient to have routine long-acting insulin and oral hypoglycemic agents. We will probably move out of the intensive care unit at a later stage today once we make sure she is able to sit up on a chair and her blood sugars are controlled while being off insulin drip.
[2016-11-23 09:05] LABS: Glucose,Whole Blood 172 mg/dL (75-99)
[2016-11-23] MEDS: INSULIN DETEMIR 100 UNIT/ML 10 ML VIAL SQ SCH (09:40)
[2016-11-23] MEDS: cefTRIAXone 2,000 MG in SODIUM CHLORIDE 0.9% 100 ML IVPB SCH (09:58)
[2016-11-23] MEDS ORDERED: LIDOCAINE 2% (PF) 20 MG/ML 10ML SQ ONE (10:59)
--- NOTE | 2016-11-23 11:38 | ECHOF ---
Referral Reason:hypotension MEASUREMENTS -------- HEIGHT: 165.1 cm WEIGHT: 146.5 kg BP: 65/47 RVIDd: 3.5 cm (< 3.3) IVSd: 1.1 cm (0.6 - 1.1) LVIDd: 4.3 cm (3.9 - 5.3) LVPWd: 1.1 cm (0.6 - 1.1) IVSs: 1.6 cm LVIDs: 3.1 cm LVPWs: 1.8 cm LA Diam: 3.0 cm (2.7 - 3.8) LAESV Index (A-L): 12.44 ml/m Ao Diam: 3.7 cm (2.0 - 3.7) AV Cusp: 2.4 cm (1.5 - 2.6) LA Diam: 2.9 cm (2.7 - 3.8) MV EXCURSION: 10.065 mm (> 18.000) MV EF SLOPE: 42 mm/s (70 - 150) EPSS: 1.0 cm MV E Alexy: 0.81 m/s MV DecT: 155 ms MV A Alexy: 0.60 m/s MV E/A Ratio: 1.35 RAP: 5.00 mmHg RVSP: 36.08 mmHg FINDINGS -------- Sinus rhythm. This was a technically adequate study. There is borderline concentric left ventricular hypertrophy. Overall left ventricular systolic function is normal with, an EF between 60 - 65 %. The diastolic filling pattern is normal for the age of the patient 8.68. The right ventricle is mildly enlarged. Normal LA size by volume 22+/-6 ml/m2. The right atrium is normal in size. The aortic valve is trileaflet and appears structurally normal. Mild mitral annular calcification present. There is trace mitral regurgitation. Mild tricuspid regurgitation present. There is mild pulmonary hypertension. The right ventricular systolic pressure, as measured by Doppler, is 36.08mmHg. Pulmonic valve appears structurally normal. The aortic root size is normal. IVC Not well visulized. There is no pericardial effusion. CONCLUSIONS -------- 1. Sinus rhythm. 2. Mild mitral annular calcification present. 3. There is trace mitral regurgitation. 4. Mild tricuspid regurgitation present. 5. There is mild pulmonary hypertension. 6. The right ventricular systolic pressure, as measured by Doppler, is 36.08mmHg. 7. Pulmonic valve appears structurally normal. 8. The aortic root size is normal. 9. IVC Not well visulized. 10. There is no pericardial effusion. 11. This was a technically adequate study. 12. There is borderline concentric left ventricular hypertrophy. 13. Overall left ventricular systolic function is normal with, an EF between 60 - 65 %. 14. The diastolic filling pattern is normal for the age of the patient 8.68 15. The right ventricle is mildly enlarged. 16. Normal LA size by volume 22+/-6 ml/m2. 17. The right atrium is normal in size. 18. The aortic valve is trileaflet and appears structurally normal. NUTRITION CONSULTANT: Ralph Morales RDCS
[2016-11-23 12:02] LABS: Glucose,Whole Blood 269 mg/dL (75-99)
[2016-11-23 12:16] LABS: Hemoglobin A1C 13.9 % (4.2-6.1)
--- NOTE | 2016-11-23 13:15 | P.PN ---
Subjective Principal diagnosis: fever and hypotension 51-year-old female presents the emergency center from her home setting with concerns to fever. The patient is a very poor historian and the chart is reviewed including the emergency center note. Apparently the patient was having difficulties with increasing amounts of pain to her neck upper back and lower back. She counseling presented to the emergency center where she was found evidence of a fever as well as relative hypotension. She underwent fluid resuscitation. She was found to have evidence of markedly elevated blood glucose with a markedly elevated hemoglobin A1c. Review from prior records reveals that she was on insulin therapy at home. However she has great difficulties understanding how to care for herself and was not giving herself insulin at home. Patient complains of a history of fibromyalgia and chronic pain and requests her pain medications consistently. She is very sedated at this point in time. Further patient comes in the chart. Nursing staff relates that she's had no emesis, no diarrhea, no open skin wounds. Patient is now much more awake today. As complaints of generalized pain. We discussed that yesterday she was overly sedated. Likely due to the excessive effects of her standard morphine dosing that was being affected by her acute renal failure. Objective - Vital Signs Vital signs: Vital Signs Temp 98 F 11/23/16 12:00 Pulse 78 11/23/16 12:00 Resp 14 11/23/16 12:00 BP 118/67 11/23/16 12:00 Pulse Ox 95 11/23/16 12:00 Intake & Output 11/22/16 11/23/16 11/23/16 18:59 06:59 18:59 Intake Total 4747.270 1915.526 931.728 Output Total 1369 2200 835 Balance 3378.270 -284.474 96.728 Weight 146.8 kg Intake: IV 1100 1397.8 220 Norepinephrine 4 mg In 97.8 Sodium Chloride 0.9% 250 ml @ Titrate IV .Q0M [facility] Rx#:[id number] Sodium Chloride 0.9% 1, 1100 1300 220 000 ml @ 40 mls/hr IV . Q24H [facility] Rx#:[id number] Intake, IV Titration 2897.270 267.726 211.728 Amount Insulin Regular 100 unit 42.166 58.834 11.728 In Sodium Chloride 0.9% 100 ml @ Per Protocol IV .Q0M [facility] Rx#:[id number] Magnesium Sulfate-D5w Pmx 100 100 1 gm In Dextrose/Water 1 100ml.bag @ 100 mls/hr IVPB Q1H [facility] Rx#: [id number] Norepinephrine 4 mg In 254.104 108.892 Sodium Chloride 0.9% 250 ml @ Titrate IV .Q0M [facility] Rx#:[id number] Sodium Chloride 0.9% 1, 1000 000 ml @ 999 mls/hr IV . Q1H1M [facility] Rx#:[id number] Sodium Chloride 0.9% 1, 1000 000 ml @ 999 mls/hr IV . Q1H1M [facility] Rx#:[id number] Vancomycin 2,000 mg In 501 Sodium Chloride 0.9% 500 ml @ 167 mls/hr IVPB ONCE [facility] Rx#:[id number] cefTRIAXone 2,000 mg In 100 Sodium Chloride 0.9% 100 ml @ 100 mls/hr IVPB ONCE [facility] Rx#:[id number] cefTRIAXone 2,000 mg In 100 Sodium Chloride 0.9% 100 ml @ 100 mls/hr IVPB Q24HR [facility] Rx#:[id number] Oral 750 250 500 Output: Urine 1369 2200 835 Other: Voiding Method Indwelling Catheter Indwelling Catheter Indwelling Catheter - Exam Obese 51-year-old woman sedated at this time. Visualized appears to be very comfortable HEENT: Anicteric conjunctiva are pink and moist nasal mucosa grossly intact without significant lesions, there is no thrush. Report dentition Neck: The neck is supple without significant lymphadenopathy or thyromegaly. Lungs: Symmetrical air entry. Few expiratory wheezes no bronchial sounds are heard Heart: Regular rate and rhythm with an audible S1-S2, no S3 soft S4. There is no significant murmur click or rub, PMI was nondisplaced. Abdomen: Obese, Positive bowel sounds soft and nontender without palpable masses or organomegaly. There was no guarding or rebound. Extremities: The upper extremities have excellent pulses they are symmetric, no significant petechiae or telangiectasia. No splinter hemorrhages were noted. The lower extremities are free from significant edema. The peripheral pulses were 2+ and symmetric. Skin is without rash or breakdown no pressure ulcerations are noted the left arm IV site was present has some minimal erythema. It is blanching and minimally tender. Similar to the right shoulder IV site. Minimal erythema with blanching. There is no induration at either site. There is no evidence of any necrosis. There is no ascending erythema from the left arm site. Neuro: Awake alert interactive seems comfortable is being cleaned up so that she can have her powder placement or folds for the yeast infection that she is having there. - Labs CBC & Chem 7: 11/23/16 04:33 11/23/16 04:33 Labs: Abnormal Lab Results - Last 24 Hours (Table) 11/22/16 11/22/16 11/22/16 Range/Units 13:19 14:01 15:10 RBC (3.80-5.40) m/uL ESR (0-20) mm/hr Chloride (98-107) mmol/L BUN (7-17) mg/dL Creatinine (0.52-1.04) mg/dL Glucose (74-99) mg/dL POC Glucose (mg/dL) 232 H 267 H 275 H (75-99) mg/dL Hemoglobin A1c (4.2-6.1) % Calcium (8.4-10.2) mg/dL Total Protein (6.3-8.2) g/dL Albumin (3.5-5.0) g/dL 11/22/16 11/22/16 11/22/16 Range/Units 15:58 17:04 18:06 RBC (3.80-5.40) m/uL ESR (0-20) mm/hr Chloride (98-107) mmol/L BUN (7-17) mg/dL Creatinine (0.52-1.04) mg/dL Glucose (74-99) mg/dL POC Glucose (mg/dL) 249 H 220 H 208 H (75-99) mg/dL Hemoglobin A1c (4.2-6.1) % Calcium (8.4-10.2) mg/dL Total Protein (6.3-8.2) g/dL Albumin (3.5-5.0) g/dL 11/22/16 11/22/16 11/22/16 Range/Units 18:57 19:40 20:12 RBC (3.80-5.40) m/uL ESR 37 H (0-20) mm/hr Chloride (98-107) mmol/L BUN (7-17) mg/dL Creatinine (0.52-1.04) mg/dL Glucose (74-99) mg/dL POC Glucose (mg/dL) 186 H 172 H (75-99) mg/dL Hemoglobin A1c (4.2-6.1) % Calcium (8.4-10.2) mg/dL Total Protein (6.3-8.2) g/dL Albumin (3.5-5.0) g/dL 11/22/16 11/22/16 11/23/16 Range/Units 21:19 22:05 00:08 RBC (3.80-5.40) m/uL ESR (0-20) mm/hr Chloride (98-107) mmol/L BUN (7-17) mg/dL Creatinine (0.52-1.04) mg/dL Glucose (74-99) mg/dL POC Glucose (mg/dL) 220 H 228 H 259 H (75-99) mg/dL Hemoglobin A1c (4.2-6.1) % Calcium (8.4-10.2) mg/dL Total Protein (6.3-8.2) g/dL Albumin (3.5-5.0) g/dL 11/23/16 11/23/16 11/23/16 Range/Units 01:56 04:11 04:33 RBC 3.73 L (3.80-5.40) m/uL ESR (0-20) mm/hr Chloride (98-107) mmol/L BUN (7-17) mg/dL Creatinine (0.52-1.04) mg/dL Glucose (74-99) mg/dL POC Glucose (mg/dL) 215 H 165 H (75-99) mg/dL Hemoglobin A1c (4.2-6.1) % Calcium (8.4-10.2) mg/dL Total Protein (6.3-8.2) g/dL Albumin (3.5-5.0) g/dL 11/23/16 11/23/16 11/23/16 Range/Units 04:33 04:33 05:30 RBC (3.80-5.40) m/uL ESR (0-20) mm/hr Chloride 112 H (98-107) mmol/L BUN 20 H (7-17) mg/dL Creatinine 1.30 H (0.52-1.04) mg/dL Glucose 161 H (74-99) mg/dL POC Glucose (mg/dL) 154 H (75-99) mg/dL Hemoglobin A1c 13.9 H (4.2-6.1) % Calcium 7.5 L (8.4-10.2) mg/dL Total Protein 5.6 L (6.3-8.2) g/dL Albumin 2.7 L (3.5-5.0) g/dL 11/23/16 11/23/16 11/23/16 Range/Units 07:00 07:59 09:04 RBC (3.80-5.40) m/uL ESR (0-20) mm/hr Chloride (98-107) mmol/L BUN (7-17) mg/dL Creatinine (0.52-1.04) mg/dL Glucose (74-99) mg/dL POC Glucose (mg/dL) 149 H 141 H 172 H (75-99) mg/dL Hemoglobin A1c (4.2-6.1) % Calcium (8.4-10.2) mg/dL Total Protein (6.3-8.2) g/dL Albumin (3.5-5.0) g/dL 11/23/16 Range/Units 12:01 RBC (3.80-5.40) m/uL ESR (0-20) mm/hr Chloride (98-107) mmol/L BUN (7-17) mg/dL Creatinine (0.52-1.04) mg/dL Glucose (74-99) mg/dL POC Glucose (mg/dL) 269 H (75-99) mg/dL Hemoglobin A1c (4.2-6.1) % Calcium (8.4-10.2) mg/dL Total Protein (6.3-8.2) g/dL Albumin (3.5-5.0) g/dL Microbiology - Last 24 Hours (Table) 11/21/16 14:45 Urine Culture - Final Urine,Voided Strep agalactiae - (group b) Laboratory Results WBC 5.4 k/uL (3.8-10.6) 11/23/16 04:33 RBC 3.73 m/uL (3.80-5.40) L 11/23/16 04:33 Hgb 11.5 gm/dL (11.4-16.0) 11/23/16 04:33 Hct 34.2 % (34.0-46.0) 11/23/16 04:33 MCV 91.7 fL (80.0-100.0) 11/23/16 04:33 MCH 30.8 pg (25.0-35.0) 11/23/16 04:33 MCHC 33.6 g/dL (31.0-37.0) 11/23/16 04:33 RDW 12.9 % (11.5-15.5) 11/23/16 04:33 Plt Count 160 k/uL (150-450) 11/23/16 04:33 Neutrophils % 43 % 11/23/16 04:33 Lymphocytes % 40 % 11/23/16 04:33 Monocytes % 7 % 11/23/16 04:33 Eosinophils % 6 % 11/23/16 04:33 Basophils % 1 % 11/23/16 04:33 Neutrophils # 2.3 k/uL (1.3-7.7) 11/23/16 04:33 Lymphocytes # 2.2 k/uL (1.0-4.8) 11/23/16 04:33 Monocytes # 0.4 k/uL (0-1.0) 11/23/16 04:33 Eosinophils # 0.3 k/uL (0-0.7) 11/23/16 04:33 Basophils # 0.1 k/uL (0-0.2) 11/23/16 04:33 Manual Slide Review Performed 11/22/16 04:33 ESR 37 mm/hr (0-20) H 11/22/16 19:40 PT 11.1 sec (9.0-12.0) 11/21/16 12:03 INR 1.1 (<1.1) 11/21/16 12:03 APTT 22.1 sec (22.0-30.0) 11/21/16 12:03 Sodium 141 mmol/L (137-145) 11/23/16 04:33 Potassium 4.0 mmol/L (3.5-5.1) 11/23/16 04:33 Chloride 112 mmol/L (98-107) H 11/23/16 04:33 Carbon Dioxide 22 mmol/L (22-30) 11/23/16 04:33 Anion Gap 7 mmol/L 11/23/16 04:33 BUN 20 mg/dL (7-17) H 11/23/16 04:33 Creatinine 1.30 mg/dL (0.52-1.04) H 11/23/16 04:33 Est GFR (MDRD) Af Amer 52 (>60 ml/min/1.73 sqM) 11/23/16 04:33 Est GFR (MDRD) Non-Af 43 (>60 ml/min/1.73 sqM) 11/23/16 04:33 Glucose 161 mg/dL (74-99) H 11/23/16 04:33 POC Glucose (mg/dL) 269 mg/dL (75-99) H 11/23/16 12:01 POC Glu Fertilizer Supervisor ID Leta Esteves 11/23/16 12:[address] Glu mg/dL 352 mg/dL 11/23/16 04:33 Hemoglobin A1c 13.9 % (4.2-6.1) H 11/23/16 04:33 Plasma Lactic Acid Steve 1.6 mmol/L (0.7-2.0) 11/22/16 12:28 Calcium 7.5 mg/dL (8.4-10.2) L 11/23/16 04:33 Phosphorus 2.9 mg/dL (2.5-4.5) 11/23/16 04:33 Magnesium 1.8 mg/dL (1.6-2.3) 11/23/16 04:33 Total Bilirubin 0.2 mg/dL (0.2-1.3) 11/23/16 04:33 AST 25 U/L (14-36) 11/23/16 04:33 ALT 34 U/L (9-52) 11/23/16 04:33 Alkaline Phosphatase 85 U/L (38-126) 11/23/16 04:33 Creatine Kinase 590 U/L (30-135) H 11/22/16 12:28 Total Creatine Kinase 514 U/L (30-135) H 11/21/16 09:30 CK-MB (CK-2) 6.5 ng/mL (0.0-2.4) H* 11/21/16 09:30 CK-MB (CK-2) Rel Index 1.3 11/21/16 09:30 Troponin I <0.012 ng/mL (0.000-0.034) 11/22/16 12:28 Total Protein 5.6 g/dL (6.3-8.2) L 11/23/16 04:33 Albumin 2.7 g/dL (3.5-5.0) L 11/23/16 04:33 Prealbumin 18 mg/dL (18-36) 11/22/16 12:23 Cortisol 15 ug/dL 11/22/16 08:41 Urine Color Yellow 11/21/16 14:45 Urine Appearance Cloudy (Clear) H 11/21/16 14:45 Urine pH 5.0 (5.0-8.0) 11/21/16 14:45 Ur Specific Ward 1.018 (1.001-1.035) 11/21/16 14:45 Urine Protein 1+ (Negative) H 11/21/16 14:45 Urine Glucose (UA) 3+ (Negative) H 11/21/16 14:45 Urine Ketones Negative (Negative) 11/21/16 14:45 Urine Blood Small (Negative) H 11/21/16 14:45 Urine Nitrite Negative (Negative) 11/21/16 14:45 Urine Bilirubin Negative (Negative) 11/21/16 14:45 Urine Urobilinogen <2.0 mg/dL (<2.0) 11/21/16 14:45 Ur Leukocyte Esterase Large (Negative) H 11/21/16 14:45 Urine RBC 17 /hpf (0-5) H 11/21/16 14:45 Urine WBC 41 /hpf (0-5) H 11/21/16 14:45 Ur Squamous Epith Cells 13 /hpf (0-4) H 11/21/16 14:45 Urine Bacteria Rare /hpf (None) H 11/21/16 14:45 Hyaline Casts 57 /lpf (0-2) H 11/21/16 14:45 Urine Mucus Occasional /hpf (None) H 11/21/16 14:45 Microbiology 11/21/16 12:03 Blood Blood Culture Gram Stain - Preliminary 11/21/16 12:03 Blood Blood Culture - Preliminary Coagulase Negative Staph 11/21/16 14:45 Urine,Voided Urine Culture - Final Strep agalactiae - (group b) 11/21/16 12:03 Blood Blood Culture - Preliminary Assessment and Plan (1) Severe sepsis with septic shock Narrative/Plan: 51-year-old woman who has a history of superobesity, chronic pain, fibromyalgia presents to the emergency center feeling poorly with fever and worsening pain. The patient has been brought to the intensive care unit where she is without evidence of hyperglycemia, fever, leukocytosis as well as hypotension. She has received fluid resuscitation and required vasopressor therapy. She appears to be having sepsis with shock is responding to fluid resuscitation. The hypotension may be exacerbated by her current pain medications. She does have evidence of acute renal failure. This would make her morphine dose excessive and constantly is cut in half. Dose adjustment has improved her significant sedation. Hypotension improved She is receiving further fluid bolus Laboratory is calling a positive blood culture with gram-positive cocci in clusters. Vancomycin was added to the ceftriaxone. This will continue for now. Follow upblood cultures are requested. Urinalysis is abnormal. Urine cultures now showing evidence of the group B strep. Sepsis with urinary system appears to be the likely current etiology of her sepsis. The blood cultures are now come back as coag-negative staph and will not need further evaluation. Does not seem to need an echocardiogram at this time. Hypotension has resolved. Black cohosh may be restarted. Status: Acute
[2016-11-23] MEDS: INSULIN LISPRO (humaLOG) 300 UNIT/3 ML VIAL SQ SCH ×5 (13:18→21:46)
[2016-11-23 13:19] LABS: Glucose,Whole Blood 265 mg/dL (75-99)
[2016-11-23 17:12] LABS: Glucose,Whole Blood 239 mg/dL (75-99)
--- NOTE | 2016-11-23 18:52 | P.PN ---
Subjective Principal diagnosis: Sepsis Patient is doing better patient presenting with hypotension mental status changes, required IV fluid boluses and levophed, currently doing better blood pressure Stabilized, patient off IV pressors, blood culture positive for gram- positive cocci. Objective - Vital Signs Vital signs: Vital Signs Temp 97.0 F L 11/23/16 15:42 Pulse 87 11/23/16 15:42 Resp 22 11/23/16 15:42 BP 128/81 11/23/16 15:42 Pulse Ox 96 11/23/16 15:42 Intake & Output 11/22/16 11/23/16 11/23/16 18:59 06:59 18:59 Intake Total 4747.270 0601.145 8381.728 Output Total 1369 2200 1510 Balance 3378.270 -284.474 1.728 Weight 146.8 kg Intake: IV 1100 1397.8 300 Norepinephrine 4 mg In 97.8 Sodium Chloride 0.9% 250 ml @ Titrate IV .Q0M [facility] Rx#:[id number] Sodium Chloride 0.9% 1, 1100 1300 300 000 ml @ 40 mls/hr IV . Q24H [facility] Rx#:[id number] Intake, IV Titration 2897.270 267.726 211.728 Amount Insulin Regular 100 unit 42.166 58.834 11.728 In Sodium Chloride 0.9% 100 ml @ Per Protocol IV .Q0M [facility] Rx#:[id number] Magnesium Sulfate-D5w Pmx 100 100 1 gm In Dextrose/Water 1 100ml.bag @ 100 mls/hr IVPB Q1H [facility] Rx#: [id number] Norepinephrine 4 mg In 254.104 108.892 Sodium Chloride 0.9% 250 ml @ Titrate IV .Q0M [facility] Rx#:[id number] Sodium Chloride 0.9% 1, 1000 000 ml @ 999 mls/hr IV . Q1H1M [facility] Rx#:[id number] Sodium Chloride 0.9% 1, 1000 000 ml @ 999 mls/hr IV . Q1H1M [facility] Rx#:[id number] Vancomycin 2,000 mg In 501 Sodium Chloride 0.9% 500 ml @ 167 mls/hr IVPB ONCE [facility] Rx#:[id number] cefTRIAXone 2,000 mg In 100 Sodium Chloride 0.9% 100 ml @ 100 mls/hr IVPB ONCE [facility] Rx#:[id number] cefTRIAXone 2,000 mg In 100 Sodium Chloride 0.9% 100 ml @ 100 mls/hr IVPB Q24HR [facility] Rx#:[id number] Oral 809 773 1827 Output: Urine 1369 2200 1510 Other: Voiding Method Indwelling Catheter Indwelling Catheter Indwelling Catheter - Exam HEENT head normocephalic and atraumatic Neck is supple no JVD no goiter no lymphadenopathy Chest is clear to auscultation no wheezing Cardiac exam reveals regular heart sounds no murmurs Abdomen is soft nontender no organomegaly Extremity exam reveals no edema no cyanosis or clubbing - Labs CBC & Chem 7: 11/23/16 04:33 11/23/16 04:33 Labs: Abnormal Lab Results - Last 24 Hours (Table) 11/22/16 11/22/16 11/22/16 Range/Units 18:57 19:40 20:12 RBC (3.80-5.40) m/uL ESR 37 H (0-20) mm/hr Chloride (98-107) mmol/L BUN (7-17) mg/dL Creatinine (0.52-1.04) mg/dL Glucose (74-99) mg/dL POC Glucose (mg/dL) 186 H 172 H (75-99) mg/dL Hemoglobin A1c (4.2-6.1) % Calcium (8.4-10.2) mg/dL Total Protein (6.3-8.2) g/dL Albumin (3.5-5.0) g/dL 11/22/16 11/22/16 11/23/16 Range/Units 21:19 22:05 00:08 RBC (3.80-5.40) m/uL ESR (0-20) mm/hr Chloride (98-107) mmol/L BUN (7-17) mg/dL Creatinine (0.52-1.04) mg/dL Glucose (74-99) mg/dL POC Glucose (mg/dL) 220 H 228 H 259 H (75-99) mg/dL Hemoglobin A1c (4.2-6.1) % Calcium (8.4-10.2) mg/dL Total Protein (6.3-8.2) g/dL Albumin (3.5-5.0) g/dL 11/23/16 11/23/16 11/23/16 Range/Units 01:56 04:11 04:33 RBC 3.73 L (3.80-5.40) m/uL ESR (0-20) mm/hr Chloride (98-107) mmol/L BUN (7-17) mg/dL Creatinine (0.52-1.04) mg/dL Glucose (74-99) mg/dL POC Glucose (mg/dL) 215 H 165 H (75-99) mg/dL Hemoglobin A1c (4.2-6.1) % Calcium (8.4-10.2) mg/dL Total Protein (6.3-8.2) g/dL Albumin (3.5-5.0) g/dL 11/23/16 11/23/16 11/23/16 Range/Units 04:33 04:33 05:30 RBC (3.80-5.40) m/uL ESR (0-20) mm/hr Chloride 112 H (98-107) mmol/L BUN 20 H (7-17) mg/dL Creatinine 1.30 H (0.52-1.04) mg/dL Glucose 161 H (74-99) mg/dL POC Glucose (mg/dL) 154 H (75-99) mg/dL Hemoglobin A1c 13.9 H (4.2-6.1) % Calcium 7.5 L (8.4-10.2) mg/dL Total Protein 5.6 L (6.3-8.2) g/dL Albumin 2.7 L (3.5-5.0) g/dL 11/23/16 11/23/16 11/23/16 Range/Units 07:00 07:59 09:04 RBC (3.80-5.40) m/uL ESR (0-20) mm/hr Chloride (98-107) mmol/L BUN (7-17) mg/dL Creatinine (0.52-1.04) mg/dL Glucose (74-99) mg/dL POC Glucose (mg/dL) 149 H 141 H 172 H (75-99) mg/dL Hemoglobin A1c (4.2-6.1) % Calcium (8.4-10.2) mg/dL Total Protein (6.3-8.2) g/dL Albumin (3.5-5.0) g/dL 11/23/16 11/23/16 11/23/16 Range/Units 12:01 13:17 17:03 RBC (3.80-5.40) m/uL ESR (0-20) mm/hr Chloride (98-107) mmol/L BUN (7-17) mg/dL Creatinine (0.52-1.04) mg/dL Glucose (74-99) mg/dL POC Glucose (mg/dL) 269 H 265 H 239 H (75-99) mg/dL Hemoglobin A1c (4.2-6.1) % Calcium (8.4-10.2) mg/dL Total Protein (6.3-8.2) g/dL Albumin (3.5-5.0) g/dL Microbiology - Last 24 Hours (Table) 11/21/16 14:45 Urine Culture - Final Urine,Voided Strep agalactiae - (group b) Assessment and Plan Plan: #1 sepsis with septic shock, maintained on IV Rocephin and IV vancomycin #2 urinary tract infection #3 positive blood culture for gram-positive cocci #4 acute renal failure #5 neck pain #6 generalized body ache #7 underlying history of diabetes mellitus #8 underlying history of seizure disorder #9 underlying history of generalized body pain maintained on morphine at home At this time patient is starting to improve, kidney function has improved since admission Blood pressure has Stabilized Patient is maintained on IV fluid and IV antibiotics and being monitored in intensive care unit Critical care consultation, nephrology consultation are following Infectious disease consultation following patient was seen by Dr. Senior Patient improved she is off IV pressors she will be transferred out of ICU today Continue with sq heparin for DVT prophylaxis
[2016-11-23 20:33] LABS: Glucose,Whole Blood 226 mg/dL (75-99)
--- NOTE | 2016-11-23 21:27 | PN ---
Patient is seen for follow-up for acute kidney injury. She is currently doing much better. Renal function has improved with creatinine down to 1.3 from 3.7 mg/dL on initial admission. Patient remains on IV fluids at about 40 mL/h. She has been eating. On examination, blood pressure was 103/51, heart rate 75 per minute. She is afebrile. Examination of the heart S1 and S2. Examination of the lungs: Bilateral breath sounds are heard. ABDOMEN: Soft, nontender, obese. Examination of lower extremities shows no significant edema. 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 Labs revealed serum creatinine down to 1.3, sodium 141, potassium 4.0, BUN 20, hemoglobin 11.5 g/dL, calcium 7.5. ASSESSMENT: 1. Acute kidney injury associated with hypotension, hypoperfusion, currently improved. 2. Urinary tract infection with urine culture growing strep agalactiae. 3. Coagulase-negative Staph bacteremia. 4. Fibromyalgia. PLAN: Repeat labs in the a.m. Continue to avoid nephrotoxic agents. Encourage increased oral intake.
[2016-11-23] MEDS: QUEtiapine 100 MG TAB PO SCH (21:45)
[2016-11-24] MEDS: HEPARIN SODIUM,PORCINE 5,000 UNIT/ML 1 ML VIAL SQ SCH ×3 (00:54→17:10)
[2016-11-24 01:44] LABS: Glucose,Whole Blood 248 mg/dL (75-99)
[2016-11-24] MEDS: INSULIN LISPRO (humaLOG) 300 UNIT/3 ML VIAL SQ SCH ×8 (02:33→21:22)
[2016-11-24] MEDS ORDERED: VANCOMYCIN 2,000 MG in SODIUM CHLORIDE 0.9% 500 ML IVPB SCH (06:00)
[2016-11-24 07:19] LABS: Glucose,Whole Blood 233 mg/dL (75-99)
[2016-11-24] MEDS: cefTRIAXone 2,000 MG in SODIUM CHLORIDE 0.9% 100 ML IVPB SCH (08:38)
[2016-11-24] MEDS: MORPHINE SULFATE IR 15 MG TABLET PO SCH ×4 (08:38→21:21)
[2016-11-24] MEDS: PANTOPRAZOLE 40 MG TABLET PO SCH (08:39)
[2016-11-24] MEDS: CYCLOBENZAPRINE 10 MG TAB PO SCH (08:40)
[2016-11-24] MEDS: TOPIRAMATE 100 MG TAB PO SCH ×2 (08:40→21:22)
[2016-11-24] MEDS: LORATADINE 10 MG TAB PO SCH (08:41)
[2016-11-24] MEDS: GABAPENTIN 100 MG CAP PO SCH ×3 (08:41→21:22)
[2016-11-24] MEDS: INSULIN DETEMIR 100 UNIT/ML 10 ML VIAL SQ SCH (08:42)
[2016-11-24] MEDS: NYSTATIN 100,000 UNIT/GM POWD 15 GM TOPICAL SCH ×3 (08:44→21:32)
[2016-11-24 09:17] LABS: Basophils # (A) 0.1 k/uL (0-0.2); Basophils % (A) 1 %; CH 29.6; CHCM 31.7; Eosinophils # (A) 0.3 k/uL (0-0.7); Eosinophils % (A) 7 %; HCT 35.9 % (34.0-46.0); HGB 11.5 gm/dL (11.4-16.0); Luc # (Auto) 0.16; Luc % (Auto) 3; Lymphocytes # (A) 2.1 k/uL (1.0-4.8); Lymphocytes % (A) 44 %; MCH 29.9 pg (25.0-35.0); MCHC 31.9 g/dL (31.0-37.0); MCV 93.5 fL (80.0-100.0); Mean Platelet Volume 7.4; Monocytes # (A) 0.3 k/uL (0-1.0); Monocytes % (A) 6 %; Neutrophils # (A) 1.8 k/uL (1.3-7.7); Neutrophils % (A) 38 %; RBC 3.84 m/uL (3.80-5.40); RDW 12.5 % (11.5-15.5); WBC 4.6 k/uL (3.8-10.6); WBC (Perox) 4.91
[2016-11-24 09:38] LABS: Calcium 8.3 mg/dL (8.4-10.2); Magnesium 1.7 mg/dL (1.6-2.3); Phosphorous 2.8 mg/dL (2.5-4.5); Potassium 4.4 mmol/L (3.5-5.1)
[2016-11-24 12:41] LABS: Glucose,Whole Blood 314 mg/dL (75-99)
[2016-11-24 17:00] LABS: Glucose,Whole Blood 175 mg/dL (75-99)
[2016-11-24] MEDS: ONDANSETRON 4 MG/2 ML VIAL IVP PRN (17:10)
--- NOTE | 2016-11-24 17:17 | P.PN ---
Subjective Principal diagnosis: Sepsis Patient is doing better patient presenting with hypotension mental status changes, required IV fluid boluses and levophed, currently doing better blood pressure Stabilized, patient off IV pressors, blood culture positive for gram- positive cocci. Objective - Vital Signs Vital signs: Vital Signs Temp 96.6 F L 11/24/16 15:00 Pulse 70 11/24/16 15:00 Resp 22 11/24/16 15:00 BP 127/71 11/24/16 15:00 Pulse Ox 100 11/24/16 15:00 Intake & Output 11/23/16 11/24/16 11/24/16 18:59 06:59 18:59 Intake Total 1511.728 500 580 Output Total 1510 Balance 1.728 500 580 Intake: IV 300 Sodium Chloride 0.9% 1, 300 000 ml @ 40 mls/hr IV . Q24H [facility] Rx#:[id number] Intake, IV Titration 211.728 100 Amount Insulin Regular 100 unit 11.728 In Sodium Chloride 0.9% 100 ml @ Per Protocol IV .Q0M [facility] Rx#:[id number] Magnesium Sulfate-D5w Pmx 100 1 gm In Dextrose/Water 1 100ml.bag @ 100 mls/hr IVPB Q1H [facility] Rx#: [id number] cefTRIAXone 2,000 mg In 100 100 Sodium Chloride 0.9% 100 ml @ 100 mls/hr IVPB Q24HR [facility] Rx#:[id number] Oral 1000 500 480 Output: Urine 1510 Other: Voiding Method Indwelling Catheter Toilet Bedside Commode # Voids 2 1 # Bowel Movements 0 - Exam HEENT head normocephalic and atraumatic Neck is supple no JVD no goiter no lymphadenopathy Chest is clear to auscultation no wheezing Cardiac exam reveals regular heart sounds no murmurs Abdomen is soft nontender no organomegaly Extremity exam reveals no edema no cyanosis or clubbing - Labs CBC & Chem 7: 11/24/16 09:00 11/24/16 09:00 Labs: Abnormal Lab Results - Last 24 Hours (Table) 11/23/16 11/24/16 11/24/16 Range/Units 20:31 01:41 07:03 Chloride (98-107) mmol/L BUN (7-17) mg/dL Creatinine (0.52-1.04) mg/dL Glucose (74-99) mg/dL POC Glucose (mg/dL) 226 H 248 H 233 H (75-99) mg/dL Calcium (8.4-10.2) mg/dL 11/24/16 11/24/16 11/24/16 Range/Units 09:00 12:28 16:48 Chloride 109 H (98-107) mmol/L BUN 19 H (7-17) mg/dL Creatinine 1.19 H (0.52-1.04) mg/dL Glucose 262 H (74-99) mg/dL POC Glucose (mg/dL) 314 H 175 H (75-99) mg/dL Calcium 8.3 L (8.4-10.2) mg/dL Microbiology - Last 24 Hours (Table) 11/22/16 19:40 Blood Culture - Preliminary Blood No Growth after 24 hours 11/22/16 19:30 Blood Culture - Preliminary Blood No Growth after 24 hours Assessment and Plan Plan: #1 sepsis with septic shock, maintained on IV Rocephin and IV vancomycin #2 urinary tract infection #3 positive blood culture for gram-positive cocci #4 acute renal failure #5 neck pain, likely musculoskeletal #6 generalized body ache #7 underlying history of diabetes mellitus #8 underlying history of seizure disorder #9 underlying history of generalized body pain maintained on morphine at home At this time patient is starting to improve, kidney function has improved since admission Blood pressure has Stabilized, patient is now on the fourth medical floor Patient is maintained on IV fluid and IV antibiotics and being monitored in intensive care unit Critical care consultation, nephrology consultation are following Infectious disease consultation following patient was seen by Dr. Senior Continue with sq heparin for DVT prophylaxis
--- NOTE | 2016-11-24 18:58 | P.PN ---
Subjective A critically care consultation was requested on this 51-year-old morbidly obese female patient due to hypotension. The patient presented emergency department yesterday having neck pain and subsequently became evident that the pain was throughout her body knowing that the patient is having currently pain in her thigh, back, along with her neck. She has no neck stiffness. No headache. No change in mental status. No photophobia. CAT scan of the cervical spine was done and it showed no evidence of any epidural abscess or osseous lesions. The patient was subsequently found to be hypotensive. She was given IV fluids and despite that she remained hypotensive in the emergency department and based on that she was started on pressors and following that the patient was brought into the intensive care unit. My understanding is that the patient has received a total of 2 L of IV fluid in the form of normal saline and earlier this morning she was on norepinephrine infusion running at the rate of 10 mcg/m and the nurses were able to titrate off however at the time I december evaluation the patient's blood pressure was in the mid 70s systolic and the pressors were restarted. Her pain is waxing and waning and affecting throughout her body. The patient has no mental status change. The blood cultures showing gram- positive cocci. The patient has been given 2 g of Rocephin in the emergency department. The chest x-ray was clear and a urinalysis is showing white cell count of 41 with some rare bacteria. No lactic acid level has been obtained. No cardiac enzymes have been obtained. The patient was found to be in acute kidney injury. Her creatinine was at 2.7 and is currently down to 2.2 and she is producing adequate amount of urine output. The blood sugars were elevated and currently she is still elevated and her most recent blood sugar is at 254. She has a mild anion gap metabolic acidosis with a bicarb level of 20 and a gap of 15. No history of any cardiac disease. No history of congestion heart failure. The patient has had previous hospitalization for complications of diabetes mellitus. On 11/23/2016 the patient is being seen in follow-up. She is improved and she is hemodynamically stable and she is off pressors for the past 4-1/2 hours. The patient is a bit lethargic study and she is awake. The patient is following commands. The blood cultures came back coagulase-negative staph. The urine cultures came back positive for strep group B. The patient remains on a combination of Rocephin and vancomycin. We'll function is improving. Creatinine is down to 1.3. The urine output is adequate. The patient on insulin drip at 4 units an hour for blood sugar control. Lactic acid level was nonelevated. Ultrasound of the lower extremity showed no evidence of DVT. Ultrasound the kidneys was negative. The echo results are still pending. The patient is seen again today 11/24/2016 in follow-up on the regular medical floor. She is awake and alert in no acute distress. She denies any shortness of breath, cough or congestion. She is being treated for coagulase negative staph and urinary tract infection. She is currently on Rocephin. A follow-up blood culture revealed no growth A PICC line was placed yesterday. She states she is doing better today as compared to yesterday. She is maintaining good O2 saturations on room air. She's been afebrile. No leukocytosis. Creatinine 1.19. Objective - Vital Signs Vital signs: Vital Signs Temp 96.6 F L 11/24/16 15:00 Pulse 70 11/24/16 15:00 Resp 22 11/24/16 15:00 BP 127/71 11/24/16 15:00 Pulse Ox 100 11/24/16 15:00 Intake & Output 11/23/16 11/24/16 11/24/16 18:59 06:59 18:59 Intake Total 1511.728 500 580 Output Total 1510 Balance 1.728 500 580 Intake: IV 300 Sodium Chloride 0.9% 1, 300 000 ml @ 40 mls/hr IV . Q24H [facility] Rx#:[id number] Intake, IV Titration 211.728 100 Amount Insulin Regular 100 unit 11.728 In Sodium Chloride 0.9% 100 ml @ Per Protocol IV .Q0M [facility] Rx#:[id number] Magnesium Sulfate-D5w Pmx 100 1 gm In Dextrose/Water 1 100ml.bag @ 100 mls/hr IVPB Q1H [facility] Rx#: [id number] cefTRIAXone 2,000 mg In 100 100 Sodium Chloride 0.9% 100 ml @ 100 mls/hr IVPB Q24HR [facility] Rx#:[id number] Oral 1000 500 480 Output: Urine 1510 Other: Voiding Method Indwelling Catheter Toilet Bedside Commode # Voids 2 1 # Bowel Movements 0 - Exam GENERAL EXAM: Morbidly obese. Alert, active, comfortable in no apparent distress. HEAD: Normocephalic. EYES: Normal reaction of pupils, equal size. NOSE: Clear with pink turbinates. THROAT: No erythema or exudates. NECK: No masses, no JVD. CHEST: No chest wall deformity. LUNGS: Equal air entry with no crackles, wheeze, rhonchi or dullness. CVS: S1 and S2 normal with no audible murmurs, regular rhythm. ABDOMEN: No hepatosplenomegaly, normal bowel sounds, no guarding or rigidity. SPINE: No scoliosis or deformity SKIN: No rashes CENTRAL NERVOUS SYSTEM: No focal deficits, tone is normal in all 4 extremities. Extremities: There is trace peripheral edema. No clubbing, no cyanosis. Peripheral pulses are intact. - Labs CBC & Chem 7: 11/24/16 09:00 11/24/16 09:00 Labs: Abnormal Lab Results - Last 24 Hours (Table) 11/23/16 11/24/16 11/24/16 Range/Units 20:31 01:41 07:03 Chloride (98-107) mmol/L BUN (7-17) mg/dL Creatinine (0.52-1.04) mg/dL Glucose (74-99) mg/dL POC Glucose (mg/dL) 226 H 248 H 233 H (75-99) mg/dL Calcium (8.4-10.2) mg/dL 11/24/16 11/24/16 11/24/16 Range/Units 09:00 12:28 16:48 Chloride 109 H (98-107) mmol/L BUN 19 H (7-17) mg/dL Creatinine 1.19 H (0.52-1.04) mg/dL Glucose 262 H (74-99) mg/dL POC Glucose (mg/dL) 314 H 175 H (75-99) mg/dL Calcium 8.3 L (8.4-10.2) mg/dL Microbiology - Last 24 Hours (Table) 11/22/16 19:40 Blood Culture - Preliminary Blood No Growth after 24 hours 11/22/16 19:30 Blood Culture - Preliminary Blood No Growth after 24 hours Assessment and Plan Plan: Assessment 1 acute hypotension, nonresponsive to fluid resuscitation and the patient is currently pressor dependent. Rule out septic shock knowing that the patient has gram-positive cocci in the blood and preliminary cultures have indicated positive gram-positive cocci. Further investigation needs to follow to identify source of an infection. On 11/23/2016, the patient's hypotension has recovered. We think it's a hypovolemic/septic hypotension. The blood cultures came back positive for coagulase-negative staph. There is a strep group B in the urine which probably is a representation of an underlying urine checked infection. The patient was covered with accommodation of Rocephin and vancomycin. I think the vancomycin can be discontinued. The fluid also can be switched to KVO as the patient is adequately resuscitated at this point. The patient is eating well. On 11/24/2016 patient was seen on the regular medical floor. She is awake and alert in no acute distress. Her follow-up blood cultures revealed no growth. She remains on Rocephin. 2 acute kidney injury, nonoliguric, recovering 3 diabetes mellitus with a component of hyperglycemia and poorly controlled blood sugars, HbA1c was at 15 4 morbid obesity with a BMI 53.9 5 fibromyalgia with chronic pain 6 diffuse body aches including the neck back and thigh pain. No evidence of rhabdomyolysis 7 chronic insomnia 8 remote history of DVT, negative Dopplers 9 seizure disorder 10 bronchial asthma 11 chronic back pain Plan: The patient was seen and evaluated by Dr. Mcclain. The patient has no specific complaints today. She is anxious to go home. She'll remain on Rocephin as directed by infectious disease. We'll continue with her current medications. We'll increase her activity as tolerated. We'll continue to follow.
[2016-11-24 21:07] LABS: Glucose,Whole Blood 202 mg/dL (75-99)
[2016-11-24] MEDS: SODIUM CHLORIDE 0.9% 1,000 ML IV SCH (21:22)
[2016-11-24] MEDS: QUEtiapine 100 MG TAB PO SCH (21:22)
--- NOTE | 2016-11-24 22:38 | P.PN ---
Subjective Principal diagnosis: fever and hypotension 51-year-old female presents the emergency center from her home setting with concerns to fever. The patient is a very poor historian and the chart is reviewed including the emergency center note. Apparently the patient was having difficulties with increasing amounts of pain to her neck upper back and lower back. She counseling presented to the emergency center where she was found evidence of a fever as well as relative hypotension. She underwent fluid resuscitation. She was found to have evidence of markedly elevated blood glucose with a markedly elevated hemoglobin A1c. Review from prior records reveals that she was on insulin therapy at home. However she has great difficulties understanding how to care for herself and was not giving herself insulin at home. Patient complains of a history of fibromyalgia and chronic pain and requests her pain medications consistently. She is very sedated at this point in time. Further patient comes in the chart. Nursing staff relates that she's had no emesis, no diarrhea, no open skin wounds. Patient is now much more awake today. As complaints of generalized pain. This is not new. Overall is feeling better today. Objective - Vital Signs Vital signs: Vital Signs Temp 96.6 F L 11/24/16 15:00 Pulse 70 11/24/16 15:00 Resp 22 11/24/16 15:00 BP 127/71 11/24/16 15:00 Pulse Ox 100 11/24/16 15:00 Intake & Output 11/24/16 11/24/16 11/25/16 06:59 18:59 06:59 Intake Total 500 580 100 Balance 500 580 100 Intake: Intake, IV Titration 100 Amount cefTRIAXone 2,000 mg In 100 Sodium Chloride 0.9% 100 ml @ 100 mls/hr IVPB Q24HR [facility] Rx#:[id number] Oral 500 480 100 Other: Voiding Method Toilet Bedside Commode # Voids 2 1 1 # Bowel Movements 0 - Exam Obese 51-year-old woman sedated at this time. Visualized appears to be very comfortable HEENT: Anicteric conjunctiva are pink and moist nasal mucosa grossly intact without significant lesions, there is no thrush. Report dentition Neck: The neck is supple without significant lymphadenopathy or thyromegaly. Lungs: Symmetrical air entry. Few expiratory wheezes no bronchial sounds are heard Heart: Regular rate and rhythm with an audible S1-S2, no S3 soft S4. There is no significant murmur click or rub, PMI was nondisplaced. Abdomen: Obese, Positive bowel sounds soft and nontender without palpable masses or organomegaly. There was no guarding or rebound. Extremities: The upper extremities have excellent pulses they are symmetric, no significant petechiae or telangiectasia. No splinter hemorrhages were noted. The lower extremities are free from significant edema. The peripheral pulses were 2+ and symmetric. Skin is without rash or breakdown no pressure ulcerations are noted the left arm IV site was present has some minimal erythema. It is blanching and minimally tender. Similar to the right shoulder IV site. Minimal erythema with blanching. There is no induration at either site. There is no evidence of any necrosis. There is no ascending erythema from the left arm site. Neuro: Awake alert interactive seems comfortable interactive and calm at this time - Labs CBC & Chem 7: 11/24/16 09:00 11/24/16 09:00 Labs: Abnormal Lab Results - Last 24 Hours (Table) 11/24/16 11/24/16 11/24/16 Range/Units 01:41 07:03 09:00 Chloride 109 H (98-107) mmol/L BUN 19 H (7-17) mg/dL Creatinine 1.19 H (0.52-1.04) mg/dL Glucose 262 H (74-99) mg/dL POC Glucose (mg/dL) 248 H 233 H (75-99) mg/dL Calcium 8.3 L (8.4-10.2) mg/dL 11/24/16 11/24/16 11/24/16 Range/Units 12:28 16:48 21:01 Chloride (98-107) mmol/L BUN (7-17) mg/dL Creatinine (0.52-1.04) mg/dL Glucose (74-99) mg/dL POC Glucose (mg/dL) 314 H 175 H 202 H (75-99) mg/dL Calcium (8.4-10.2) mg/dL Microbiology - Last 24 Hours (Table) 11/22/16 19:40 Blood Culture - Preliminary Blood No Growth after 48 hours 11/22/16 19:30 Blood Culture - Preliminary Blood No Growth after 48 hours Laboratory Results WBC 4.6 k/uL (3.8-10.6) 11/24/16 09:00 RBC 3.84 m/uL (3.80-5.40) 11/24/16 09:00 Hgb 11.5 gm/dL (11.4-16.0) 11/24/16 09:00 Hct 35.9 % (34.0-46.0) 11/24/16 09:00 MCV 93.5 fL (80.0-100.0) 11/24/16 09:00 MCH 29.9 pg (25.0-35.0) 11/24/16 09:00 MCHC 31.9 g/dL (31.0-37.0) 11/24/16 09:00 RDW 12.5 % (11.5-15.5) 11/24/16 09:00 Plt Count 154 k/uL (150-450) 11/24/16 09:00 Neutrophils % 38 % 11/24/16 09:00 Lymphocytes % 44 % 11/24/16 09:00 Monocytes % 6 % 11/24/16 09:00 Eosinophils % 7 % 11/24/16 09:00 Basophils % 1 % 11/24/16 09:00 Neutrophils # 1.8 k/uL (1.3-7.7) 11/24/16 09:00 Lymphocytes # 2.1 k/uL (1.0-4.8) 11/24/16 09:00 Monocytes # 0.3 k/uL (0-1.0) 11/24/16 09:00 Eosinophils # 0.3 k/uL (0-0.7) 11/24/16 09:00 Basophils # 0.1 k/uL (0-0.2) 11/24/16 09:00 Manual Slide Review Performed 11/22/16 04:33 ESR 37 mm/hr (0-20) H 11/22/16 19:40 PT 11.1 sec (9.0-12.0) 11/21/16 12:03 INR 1.1 (<1.1) 11/21/16 12:03 APTT 22.1 sec (22.0-30.0) 11/21/16 12:03 Sodium 141 mmol/L (137-145) 11/24/16 09:00 Potassium 4.4 mmol/L (3.5-5.1) 11/24/16 09:00 Chloride 109 mmol/L (98-107) H 11/24/16 09:00 Carbon Dioxide 22 mmol/L (22-30) 11/24/16 09:00 Anion Gap 10 mmol/L 11/24/16 09:00 BUN 19 mg/dL (7-17) H 11/24/16 09:00 Creatinine 1.19 mg/dL (0.52-1.04) H 11/24/16 09:00 Est GFR (MDRD) Af Amer 58 (>60 ml/min/1.73 sqM) 11/24/16 09:00 Est GFR (MDRD) Non-Af 48 (>60 ml/min/1.73 sqM) 11/24/16 09:00 Glucose 262 mg/dL (74-99) H 11/24/16 09:00 POC Glucose (mg/dL) 202 mg/dL (75-99) H 11/24/16 21:01 POC Glu Contract Writer MICHELLE Lyric Ríos 11/24/16 21:[address] Glu mg/dL 352 mg/dL 11/23/16 04:33 Hemoglobin A1c 13.9 % (4.2-6.1) H 11/23/16 04:33 Plasma Lactic Acid Steve 1.6 mmol/L (0.7-2.0) 11/22/16 12:28 Calcium 8.3 mg/dL (8.4-10.2) L 11/24/16 09:00 Phosphorus 2.8 mg/dL (2.5-4.5) 11/24/16 09:00 Magnesium 1.7 mg/dL (1.6-2.3) 11/24/16 09:00 Total Bilirubin 0.2 mg/dL (0.2-1.3) 11/23/16 04:33 AST 25 U/L (14-36) 11/23/16 04:33 ALT 34 U/L (9-52) 11/23/16 04:33 Alkaline Phosphatase 85 U/L (38-126) 11/23/16 04:33 Creatine Kinase 590 U/L (30-135) H 11/22/16 12:28 Total Creatine Kinase 514 U/L (30-135) H 11/21/16 09:30 CK-MB (CK-2) 6.5 ng/mL (0.0-2.4) H* 11/21/16 09:30 CK-MB (CK-2) Rel Index 1.3 11/21/16 09:30 Troponin I <0.012 ng/mL (0.000-0.034) 11/22/16 12:28 Total Protein 5.6 g/dL (6.3-8.2) L 11/23/16 04:33 Albumin 2.7 g/dL (3.5-5.0) L 11/23/16 04:33 Prealbumin 18 mg/dL (18-36) 11/22/16 12:23 Cortisol 15 ug/dL 11/22/16 08:41 Urine Color Yellow 11/21/16 14:45 Urine Appearance Cloudy (Clear) H 11/21/16 14:45 Urine pH 5.0 (5.0-8.0) 11/21/16 14:45 Ur Specific [place] 1.018 (1.001-1.035) 11/21/16 14:45 Urine Protein 1+ (Negative) H 11/21/16 14:45 Urine Glucose (UA) 3+ (Negative) H 11/21/16 14:45 Urine Ketones Negative (Negative) 11/21/16 14:45 Urine Blood Small (Negative) H 11/21/16 14:45 Urine Nitrite Negative (Negative) 11/21/16 14:45 Urine Bilirubin Negative (Negative) 11/21/16 14:45 Urine Urobilinogen <2.0 mg/dL (<2.0) 11/21/16 14:45 Ur Leukocyte Esterase Large (Negative) H 11/21/16 14:45 Urine RBC 17 /hpf (0-5) H 11/21/16 14:45 Urine WBC 41 /hpf (0-5) H 11/21/16 14:45 Ur Squamous Epith Cells 13 /hpf (0-4) H 11/21/16 14:45 Urine Bacteria Rare /hpf (None) H 11/21/16 14:45 Hyaline Casts 57 /lpf (0-2) H 11/21/16 14:45 Urine Mucus Occasional /hpf (None) H 11/21/16 14:45 Orders Benzocaine [Anbesol] 1 applic MUCOUS MEM QID PRN 11/21/16 [History Confirmed 10/08 Last Taken Unknown] Clotrimazole [Clotrimazole 1%] 1 applic TOPICAL BID PRN 11/21/16 [History Confirmed 11/21/16 Last Taken Unknown] Cyclobenzaprine [Flexeril] 10 mg PO DAILY 11/21/16 [History Confirmed 11/21/16 Last Taken 11/20/16] Doxylamine Succinate [Unisom] 25 mg PO HS PRN MDD ++ 11/21/16 [History Confirmed 11/21/16 Last Taken 11/17/16] Insulin Lispro [humaLOG Kwikpen] 40 unit SQ AC-BID 11/21/16 [History Confirmed 11/21/16 Last Taken 11/20/16] Menthol [Icy Hot] 1 applicator TRANSDERM QID PRN 11/21/16 [History Confirmed 10/08 Last Taken Unknown] Morphine Sulfate Ir [Msir] 30 mg PO QID 11/21/16 [History Confirmed 11/21/16 Last Taken 11/20/16] QUEtiapine [SEROquel] 100 mg PO HS 11/21/16 [History Confirmed 11/21/16 Last Taken 11/20/16] rOPINIRole HCL [Requip] 1 mg PO HS 11/21/16 [History Confirmed 11/21/16 Last Taken 11/20/16] Intake & Output 11/23/16 11/24/16 11/25/16 06:59 06:59 06:59 Intake Total 6662.796 2011.728 680 Output Total 3569 1510 Balance 3093.796 501.728 680 Weight 146.8 kg Intake: IV 2497.8 300 Norepinephrine 4 mg In 97.8 Sodium Chloride 0.9% 250 ml @ Titrate IV .Q0M [facility] Rx#:[id number] Sodium Chloride 0.9% 1, 2400 300 000 ml @ 40 mls/hr IV . Q24H [facility] Rx#:[id number] Intake, IV Titration 3164.996 211.728 100 Amount Insulin Regular 100 unit 101.000 11.728 In Sodium Chloride 0.9% 100 ml @ Per Protocol IV .Q0M [facility] Rx#:[id number] Magnesium Sulfate-D5w Pmx 100 100 1 gm In Dextrose/Water 1 100ml.bag @ 100 mls/hr IVPB Q1H [facility] Rx#: [id number] Norepinephrine 4 mg In 362.996 Sodium Chloride 0.9% 250 ml @ Titrate IV .Q0M [facility] Rx#:[id number] Sodium Chloride 0.9% 1, 1000 000 ml @ 999 mls/hr IV . Q1H1M [facility] Rx#:[id number] Sodium Chloride 0.9% 1, 1000 000 ml @ 999 mls/hr IV . Q1H1M [facility] Rx#:[id number] Vancomycin 2,000 mg In 501 Sodium Chloride 0.9% 500 ml @ 167 mls/hr IVPB ONCE [facility] Rx#:[id number] cefTRIAXone 2,000 mg In 100 Sodium Chloride 0.9% 100 ml @ 100 mls/hr IVPB ONCE [facility] Rx#:[id number] cefTRIAXone 2,000 mg In 100 100 Sodium Chloride 0.9% 100 ml @ 100 mls/hr IVPB Q24HR [facility] Rx#:[id number] Oral 1000 1500 580 Output: Urine 3569 1510 Other: Voiding Method Indwelling Catheter Toilet Bedside Commode # Voids 2 1 # Bowel Movements 0 Active Medications Albuterol Sulfate (Ventolin Nebulized) 2.5 mg INHALATION RT-Q4H PRN PRN Reason: Shortness Of Breath Cyclobenzaprine HCl (Flexeril) 10 mg PO DAILY [facility] Last Admin: 11/24/16 08:40 Dose: 10 mg Admin: 11/23/16 08:04 Dose: 10 mg Admin: 11/22/16 08:23 Dose: 10 mg Gabapentin (Neurontin) 200 mg PO TID [facility] Last Admin: 11/24/16 21:22 Dose: 200 mg Admin: 11/24/16 17:10 Dose: 200 mg Admin: 11/24/16 08:41 Dose: 200 mg Admin: 11/23/16 21:45 Dose: 200 mg Admin: 11/23/16 16:01 Dose: 200 mg Admin: 11/23/16 08:05 Dose: 200 mg Admin: 11/22/16 20:33 Dose: 200 mg Admin: 11/22/16 15:22 Dose: 200 mg Heparin Sodium (Porcine) (Heparin) 5,000 unit SQ Q8HR [facility] Last Admin: 11/24/16 17:10 Dose: 5,000 unit Admin: 11/24/16 08:42 Dose: 5,000 unit Admin: 11/24/16 00:54 Dose: 5,000 unit Admin: 11/23/16 16:00 Dose: 5,000 unit Admin: 11/23/16 08:03 Dose: 5,000 unit Admin: 11/23/16 01:59 Dose: 5,000 unit Admin: 11/22/16 15:22 Dose: 5,000 unit Admin: 11/22/16 08:22 Dose: 5,000 unit Admin: 11/21/16 23:24 Dose: 5,000 unit Sodium Chloride (Saline 0.9%) 1,000 mls @ 40 mls/hr IV .Q24H [facility] Last Admin: 11/24/16 21:22 Dose: 40 mls/hr Admin: 11/23/16 21:47 Dose: 40 mls/hr Re-Assess: IV Stop Time Document 11/24/16 20:47 SCQ (Rec: 11/24/16 21:31 SCQ [facility]-[id number]) IV Stop Time IV Stop Date 11/24/16 IV Stop Time 21:31 Admin: 11/23/16 09:32 Dose: Admin: 11/23/16 01:20 Dose: Admin: 11/22/16 15:21 Dose: 100 mls/hr Re-Assess: IV Stop Time Document 11/23/16 13:55 CMS (Rec: 11/23/16 13:55 CMS [id number]) IV Stop Time IV Stop Date 11/23/16 IV Stop Time 13:55 Med Stopped normal saline IV Stop Reason complete Admin: 11/22/16 07:54 Dose: Admin: 11/21/16 19:45 Dose: 100 mls/hr Re-Assess: IV Stop Time Document 11/22/16 18:45 CMS (Rec: 11/22/16 19:08 CMS [id number]) IV Stop Time IV Stop Date 11/22/16 IV Stop Time 19:08 Med Stopped normal saline IV Stop Reason complete Ceftriaxone Sodium 2,000 mg/ (Sodium Chloride) 100 mls @ 100 mls/hr IVPB Q24HR [facility] Last Admin: 11/24/16 08:38 Dose: 100 mls/hr Re-Assess: IV Stop Time Document 11/24/16 09:38 BASIA (Rec: 11/24/16 10:49 BASIA [id number]) IV Stop Time IV Stop Date 11/24/16 IV Stop Time 09:38 Admin: 11/23/16 09:58 Dose: 100 mls/hr Re-Assess: IV Stop Time Document 11/23/16 10:58 CMS (Rec: 11/23/16 11:35 CMS [id number]) IV Stop Time IV Stop Date 11/23/16 IV Stop Time 11:35 Med Stopped rocephin IV Stop Reason complete Admin: 11/22/16 13:02 Dose: 100 mls/hr Re-Assess: IV Stop Time Document 11/22/16 14:01 CMS (Rec: 11/22/16 14:01 CMS [id number]) IV Stop Time IV Stop Date 11/22/16 IV Stop Time 14:01 Med Stopped rocephin IV Stop Reason complete Insulin Detemir (Levemir) 20 unit SQ QAM [facility] Last Admin: 11/24/16 08:42 Dose: 20 unit Admin: 11/23/16 09:40 Dose: 20 unit Insulin Human Lispro (Humalog) 30 unit SQ AC-TID [facility] Last Admin: 11/24/16 17:34 Dose: 30 unit Admin: 11/24/16 13:06 Dose: 30 unit Admin: 11/24/16 08:43 Dose: 30 unit Admin: 11/23/16 18:00 Dose: 30 unit Admin: 11/23/16 13:18 Dose: 30 unit Insulin Human Lispro (Humalog) 0 unit SQ [id number] [facility] PRN Reason: Protocol Last Admin: 11/24/16 21:22 Dose: 4 unit Admin: 11/24/16 17:34 Dose: 2 unit Admin: 11/24/16 13:06 Dose: 8 unit Admin: 11/24/16 08:44 Dose: 5 unit Admin: 11/24/16 02:33 Dose: 5 unit Admin: 11/23/16 21:46 Dose: 5 unit Admin: 11/23/16 18:01 Dose: 5 unit Admin: 11/23/16 13:18 Dose: 6 unit Levetiracetam (Keppra) 1,500 mg PO BID [facility] Last Admin: 11/24/16 21:22 Dose: 1,500 mg Admin: 11/24/16 08:41 Dose: 1,500 mg Admin: 11/23/16 21:46 Dose: 1,500 mg Admin: 11/23/16 08:05 Dose: 1,500 mg Admin: 11/22/16 20:33 Dose: 1,500 mg Admin: 11/22/16 08:24 Dose: 1,500 mg Admin: 11/21/16 22:38 Dose: 1,500 mg Loratadine (Claritin) 10 mg PO DAILY [facility] Last Admin: 11/24/16 08:41 Dose: 10 mg Admin: 11/23/16 08:05 Dose: 10 mg Admin: 11/22/16 08:23 Dose: 10 mg Lorazepam (Ativan) 0.5 mg IV Q4HR PRN PRN Reason: Anxiety Last Admin: 11/22/16 12:59 Dose: 0.5 mg Miscellaneous Information (Magnesium Per Protocol) 1 each MISCELLANE DAILY PRN ; Protocol PRN Reason: Per Protocol Morphine Sulfate (Msir) 15 mg PO QID [facility] Last Admin: 11/24/16 21:21 Dose: 15 mg Admin: 11/24/16 18:34 Dose: 15 mg Re-Assess: Pain Assessment Document 11/24/16 18:58 AMD (Rec: 11/24/16 18:58 AMD [id number]) Character Scale Used Numeric (1 - 10) Intensity 0 Management Goal 0 Admin: 11/24/16 13:09 Dose: 15 mg Re-Assess: Pain Assessment Document 11/24/16 13:54 AMD (Rec: 11/24/16 14:30 AMD [id number]) Character Scale Used Numeric (1 - 10) Intensity 7 Management Goal 0 Admin: 11/24/16 08:38 Dose: 15 mg Re-Assess: Pain Assessment Document 11/24/16 09:23 BASIA (Rec: 11/24/16 10:49 BASIA [id number]) Character Scale Used Numeric (1 - 10) Intensity 3 Admin: 11/23/16 21:45 Dose: 15 mg Re-Assess: Pain Assessment Document 11/23/16 22:30 SCQ (Rec: 11/24/16 00:25 SCQ [id number]) Comment Pain Assessment Comment pt appears to be resting comfortably at this time Admin: 11/23/16 17:59 Dose: 15 mg Re-Assess: Pain Assessment Document 11/23/16 18:38 SCJ (Rec: 11/23/16 18:38 SCJ [id number]) Character Scale Used Numeric (1 - 10) Intensity 6 Admin: 11/23/16 12:54 Dose: 15 mg Re-Assess: Pain Assessment Document 11/23/16 13:39 CMS (Rec: 11/23/16 13:55 CMS [id number]) Location Pain Location Neck Back Character Scale Used Numeric (1 - 10) Intensity 4 Management Goal 4 Description *Acute *Chronic Frequency Frequent Pain Duration Units Years Pain Behavior None Exhibited Vocalization Admin: 11/23/16 08:07 Dose: 15 mg Re-Assess: Pain Assessment Document 11/23/16 08:52 CMS (Rec: 11/23/16 08:54 CMS [id number]) Location Pain Location Back Character Scale Used Numeric (1 - 10) Intensity 5 Management Goal 4 Description *Chronic Frequency Frequent Pain Duration Units Years Pain Behavior Vocalization Pharmacological Interventions Discuss Pain Med Options Non-Pharmacological Interventions Position/Reposition Admin: 11/23/16 01:58 Dose: Not Given Non-Admin Reason: Patient Asleep Admin: 11/22/16 20:36 Dose: 15 mg Re-Assess: Pain Assessment Document 11/22/16 21:21 JRG (Rec: 11/22/16 22:58 JRG [id number]) Character Scale Used Numeric (1 - 10) Intensity 0 Naloxone HCl (Narcan) 0.2 mg IV Q2M PRN PRN Reason: Opioid Reversal Black Cohosh 540 Mg 1 each PO DAILY [facility] Last Admin: 11/24/16 08:44 Dose: 1 each Admin: 11/23/16 11:55 Dose: 1 each Nystatin (Mycostatin Powder) 1 applic TOPICAL TID [facility] Last Admin: 11/24/16 21:32 Dose: 1 applic Admin: 11/24/16 17:11 Dose: 1 applic Admin: 11/24/16 08:44 Dose: 1 applic Admin: 11/23/16 21:56 Dose: Not Given Non-Admin Reason: Patient Refused Admin: 11/23/16 16:01 Dose: 1 applic Admin: 11/23/16 08:05 Dose: 1 applic Admin: 11/22/16 20:34 Dose: 1 applic Admin: 11/22/16 15:22 Dose: 1 applic Admin: 11/22/16 08:23 Dose: 1 applic Ondansetron HCl (Zofran) 4 mg IVP Q6HR PRN PRN Reason: Nausea And Vomiting Last Admin: 11/24/16 17:10 Dose: 4 mg Pantoprazole Sodium (Protonix) 40 mg PO AC-BRKFST [facility] Last Admin: 11/24/16 08:39 Dose: 40 mg Admin: 11/23/16 08:03 Dose: 40 mg Admin: 11/22/16 08:21 Dose: 40 mg Quetiapine Fumarate (Seroquel) 100 mg PO [facility] Last Admin: 11/24/16 21:22 Dose: 100 mg Admin: 11/23/16 21:45 Dose: 100 mg Admin: 11/22/16 20:33 Dose: 100 mg Admin: 11/21/16 22:39 Dose: 100 mg Ropinirole HCl (Requip) 1 mg PO [facility] Last Admin: 11/24/16 21:22 Dose: 1 mg Admin: 11/23/16 21:45 Dose: 1 mg Admin: 11/22/16 20:33 Dose: 1 mg Admin: 11/21/16 22:38 Dose: 1 mg Topiramate (Topamax) 100 mg PO BID [facility] Last Admin: 11/24/16 21:22 Dose: 100 mg Admin: 11/24/16 08:40 Dose: 100 mg Admin: 11/23/16 21:45 Dose: 100 mg Admin: 11/23/16 08:05 Dose: 100 mg Admin: 11/22/16 20:33 Dose: 100 mg Admin: 11/22/16 08:23 Dose: 100 mg Admin: 11/21/16 22:39 Dose: 100 mg Microbiology 11/21/16 12:03 Blood Blood Culture Gram Stain - Final 11/21/16 12:03 Blood Blood Culture - Final Staphylococcus epidermidis Patient Problems Acute renal failure (Acute) Hyperglycemia (Acute) Hypotension (Acute) Metabolic acidosis (Acute) Neck pain (Acute) Severe sepsis with septic shock (Acute) Procedures APPLICATION LOWER LEG SPLINT (08/27/14) APPLICATION OF SPLINT (08/27/14) APPLY LONG ARM SPLINT (09/17/15) CLOSURE SKIN & SUBCUTANEOUS NEC (11/12/14) DRAINAGE OF BUTTOCK SKIN, EXTERNAL APPROACH (06/07/15) DRAINAGE OF SKIN ABSCESS (06/07/15) EMERGENCY DEPT VISIT (11/20/16) EMERGENCY DEPT VISIT (10/08/16) EMERGENCY DEPT VISIT (08/29/16) EMERGENCY DEPT VISIT (05/25/16) EMERGENCY DEPT VISIT (12/25/15) EMERGENCY DEPT VISIT (12/11/15) EMERGENCY DEPT VISIT (10/15/15) EMERGENCY DEPT VISIT (08/06/15) EMERGENCY DEPT VISIT (06/22/15) EMERGENCY DEPT VISIT (06/07/15) EMERGENCY DEPT VISIT (03/15/15) EMERGENCY DEPT VISIT (02/07/15) EMERGENCY DEPT VISIT (02/05/15) EMERGENCY DEPT VISIT (12/24/14) EMERGENCY DEPT VISIT (11/12/14) EMERGENCY DEPT VISIT (10/19/14) EMERGENCY DEPT VISIT (08/27/14) EMERGENCY DEPT VISIT (07/09/14) EMERGENCY DEPT VISIT (05/22/14) EMERGENCY DEPT VISIT (12/31/13) HYDRATE IV INFUSION ADD-ON (11/20/16) HYDRATION IV INFUSION INIT (11/20/16) RPR S/N/AX/GEN/TRNK 2.5CM/< (11/12/14) THER/PROPH/DIAG INJ IV PUSH (12/11/15) THER/PROPH/DIAG INJ SC/IM (10/08/16) THER/PROPH/DIAG IV INF INIT (02/05/15) TX/PRO/DX INJ NEW DRUG ADDON (12/11/15) TX/PRO/DX INJ 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 DRUG 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/27/14) Microbiology 11/22/16 19:40 Blood Blood Culture - Preliminary No Growth after 48 hours 11/22/16 19:30 Blood Blood Culture - Preliminary No Growth after 48 hours 11/21/16 12:03 Blood Blood Culture Gram Stain - Final 11/21/16 12:03 Blood Blood Culture - Final Staphylococcus epidermidis 11/21/16 12:03 Blood Blood Culture - Final 11/21/16 14:45 Urine,Voided Urine Culture - Final Strep agalactiae - (group b) Assessment and Plan (1) Severe sepsis with septic shock Narrative/Plan: 51-year-old woman who has a history of superobesity, chronic pain, fibromyalgia presents to the emergency center feeling poorly with fever and worsening pain. The patient has been brought to the intensive care unit where she is without evidence of hyperglycemia, fever, leukocytosis as well as hypotension. She has received fluid resuscitation and required vasopressor therapy. She appears to be having sepsis with shock is responding to fluid resuscitation. The hypotension may be exacerbated by her current pain medications. She does have evidence of acute renal failure. This would make her morphine dose excessive and constantly is cut in half. Dose adjustment has improved her significant sedation. Hypotension resolved She is receiving further fluid bolus Laboratory is calling a positive blood culture with gram-positive cocci in clusters. As noted turned out to be coagulase-negative staph. Acute renal failure is improving Urinalysis is abnormal. Urine cultures now showing evidence of the group B strep. Sepsis with urinary system appears to be the likely current etiology of her sepsis. The blood cultures are now come back as coag-negative staph and will not need further evaluation. Vancomycin discontinued. Only needs Rocephin therapy. Can be transitioned to oral antibiotic when she is ready for discharge Antifungal therapy with fluconazole will be given Does not seem to need an echocardiogram at this time. Hypotension has resolved. Black cohosh was restarted. Status: Acute
[2016-11-25 02:31] LABS: Glucose,Whole Blood 236 mg/dL (75-99)
[2016-11-25] MEDS: INSULIN LISPRO (humaLOG) 300 UNIT/3 ML VIAL SQ SCH ×8 (02:33→21:46)
[2016-11-25] MEDS: HEPARIN SODIUM,PORCINE 5,000 UNIT/ML 1 ML VIAL SQ SCH ×4 (02:33→23:37)
[2016-11-25 07:30] LABS: Glucose,Whole Blood 197 mg/dL (75-99)
[2016-11-25 08:36] LABS: Basophils % (A) 1 %; CH 29.7; CHCM 31.8; Eosinophils # (A) 0.3 k/uL (0-0.7); Eosinophils % (A) 8 %; HCT 35.2 % (34.0-46.0); HDW 2.61; HGB 11.4 gm/dL (11.4-16.0); Luc # (Auto) 0.16; Luc % (Auto) 4; Lymphocytes # (A) 1.9 k/uL (1.0-4.8); Lymphocytes % (A) 49 %; MCH 30.4 pg (25.0-35.0); MCHC 32.3 g/dL (31.0-37.0); MCV 93.9 fL (80.0-100.0); Mean Platelet Volume 7.4; Monocytes # (A) 0.3 k/uL (0-1.0); Monocytes % (A) 7 %; Neutrophils # (A) 1.3 k/uL (1.3-7.7); Neutrophils % (A) 33 %; RBC 3.75 m/uL (3.80-5.40); RDW 12.7 % (11.5-15.5); WBC (Perox) 4.46
[2016-11-25] MEDS: INSULIN DETEMIR 100 UNIT/ML 10 ML VIAL SQ SCH (08:40)
[2016-11-25] MEDS: CYCLOBENZAPRINE 10 MG TAB PO SCH (08:41)
[2016-11-25] MEDS: PANTOPRAZOLE 40 MG TABLET PO SCH (08:41)
[2016-11-25] MEDS: LORATADINE 10 MG TAB PO SCH (08:41)
[2016-11-25] MEDS: GABAPENTIN 100 MG CAP PO SCH ×3 (08:41→21:47)
[2016-11-25] MEDS: TOPIRAMATE 100 MG TAB PO SCH ×2 (08:41→20:16)
[2016-11-25] MEDS: MORPHINE SULFATE IR 15 MG TABLET PO SCH ×4 (08:42→21:47)
[2016-11-25] MEDS: cefTRIAXone 2,000 MG in SODIUM CHLORIDE 0.9% 100 ML IVPB SCH (08:43)
[2016-11-25 09:09] LABS: ALT 32 U/L (9-52); AST 30 U/L (14-36); Alkaline Phosphatase 69 U/L (38-126); Anion Gap 8 mmol/L; Blood Urea Nitrogen 19 mg/dL (7-17); Calcium 8.6 mg/dL (8.4-10.2); Carbon Dioxide 23 mmol/L (22-30); Chloride 111 mmol/L (98-107); Glucose 235 mg/dL (74-99); Magnesium 1.5 mg/dL (1.6-2.3); Non-African American GFR(MDRD) 52 (>60 ml/min/1.73 sqM); Phosphorous 4.2 mg/dL (2.5-4.5); Sodium 142 mmol/L (137-145); Total Bilirubin 0.2 mg/dL (0.2-1.3); Total Protein 5.3 g/dL (6.3-8.2)
[2016-11-25 09:10] LABS: Potassium 4.5 mmol/L (3.5-5.1)
[2016-11-25] MEDS: NYSTATIN 100,000 UNIT/GM POWD 15 GM TOPICAL SCH ×3 (10:27→21:48)
[2016-11-25 11:48] LABS: Glucose,Whole Blood 184 mg/dL (75-99)
--- NOTE | 2016-11-25 13:36 | P.PN ---
Subjective Principal diagnosis: Sepsis Patient is doing better patient presenting with hypotension mental status changes, required IV fluid boluses and levophed, currently doing better blood pressure Stabilized, patient off IV pressors, blood culture positive for gram- positive cocci. Objective - Vital Signs Vital signs: Vital Signs Temp 96.6 F L 11/25/16 07:00 Pulse 61 11/25/16 07:00 Resp 18 11/25/16 07:00 BP 104/66 11/25/16 07:00 Pulse Ox 98 11/25/16 07:00 Intake & Output 11/24/16 11/25/16 11/25/16 18:59 06:59 18:59 Intake Total 580 100 Balance 580 100 Intake: Intake, IV Titration 100 Amount cefTRIAXone 2,000 mg In 100 Sodium Chloride 0.9% 100 ml @ 100 mls/hr IVPB Q24HR [facility] Rx#:[id number] Oral 480 100 Other: # Voids 1 4 1 # Bowel Movements 0 - Exam HEENT head normocephalic and atraumatic Neck is supple no JVD no goiter no lymphadenopathy Chest is clear to auscultation no wheezing Cardiac exam reveals regular heart sounds no murmurs Abdomen is soft nontender no organomegaly Extremity exam reveals no edema no cyanosis or clubbing - Labs CBC & Chem 7: 11/25/16 08:08 11/25/16 08:08 Labs: Abnormal Lab Results - Last 24 Hours (Table) 11/24/16 11/24/16 11/25/16 Range/Units 16:48 21:01 02:25 RBC (3.80-5.40) m/uL Plt Count (150-450) k/uL Chloride (98-107) mmol/L BUN (7-17) mg/dL Creatinine (0.52-1.04) mg/dL Glucose (74-99) mg/dL POC Glucose (mg/dL) 175 H 202 H 236 H (75-99) mg/dL Magnesium (1.6-2.3) mg/dL Total Protein (6.3-8.2) g/dL Albumin (3.5-5.0) g/dL 11/25/16 11/25/16 11/25/16 Range/Units 07:28 08:08 08:08 RBC 3.75 L (3.80-5.40) m/uL Plt Count 145 L (150-450) k/uL Chloride 111 H (98-107) mmol/L BUN 19 H (7-17) mg/dL Creatinine 1.10 H (0.52-1.04) mg/dL Glucose 235 H (74-99) mg/dL POC Glucose (mg/dL) 197 H (75-99) mg/dL Magnesium 1.5 L (1.6-2.3) mg/dL Total Protein 5.3 L (6.3-8.2) g/dL Albumin 2.7 L (3.5-5.0) g/dL 11/25/16 Range/Units 11:46 RBC (3.80-5.40) m/uL Plt Count (150-450) k/uL Chloride (98-107) mmol/L BUN (7-17) mg/dL Creatinine (0.52-1.04) mg/dL Glucose (74-99) mg/dL POC Glucose (mg/dL) 184 H (75-99) mg/dL Magnesium (1.6-2.3) mg/dL Total Protein (6.3-8.2) g/dL Albumin (3.5-5.0) g/dL Microbiology - Last 24 Hours (Table) 11/22/16 19:40 Blood Culture - Preliminary Blood No Growth after 48 hours 11/22/16 19:30 Blood Culture - Preliminary Blood No Growth after 48 hours Assessment and Plan Plan: #1 sepsis with septic shock, maintained on IV Rocephin and IV vancomycin #2 urinary tract infection #3 positive blood culture for gram-positive cocci #4 acute renal failure #5 neck pain, likely musculoskeletal #6 generalized body ache #7 underlying history of diabetes mellitus #8 underlying history of seizure disorder #9 underlying history of generalized body pain maintained on morphine at home At this time patient is starting to improve, kidney function has improved since admission, creatinine down to 1.1 today Blood pressure has Stabilized, patient is now on the fourth medical floor Patient is maintained on IV fluid and IV antibiotics and being monitored in intensive care unit Critical care consultation, nephrology consultation are following Infectious disease consultation following patient was seen by Dr. Senior currently maintained on IV Rocephin When patient can be switched to oral antibiotic she will be discharged home Continue with sq heparin for DVT prophylaxis
--- NOTE | 2016-11-25 14:29 | PN ---
Patient is seen for follow-up for acute kidney injury. Currently patient is lying in bed. She is comfortable. She is not in any acute distress. Her creatinine has improved to 1.1 from 3.7 mg/dL initially. Patient is off of IV fluids. She stated she was mildly nauseated today. Her IV fluids are at 40 mL/h. She denies any other complaints. On examination, blood pressure is 133/77, heart rate 61 per minute. The patient is afebrile. Examination of the heart S1 and S2. Examination of the lungs: Bilateral breath sounds are heard. Abdomen is soft, nontender, obese. Examination of lower extremities shows no significant edema. SENIOR ENGINEERING TECHNICIAN exam is grossly intact. Labs show sodium of 142, potassium 4.5, chloride 111, BUN 19, serum creatinine 1.1. Hemoglobin 11.4 g/dL. ASSESSMENT: 1. Acute kidney injury, currently improved significantly. Etiology was hypotension, hypoperfusion with some degree of acute tubular necrosis. 2. History of seizure disorder, maintained on Keppra. 3. Morbid obesity. 4. Coagulase-negative staph bacteremia. The vancomycin has been discontinued. Patient has been seen by Infectious Disease. She is maintained on Rocephin. PLAN: Discontinue IV fluids. Encourage increased oral intake. Possible discharge soon.
[2016-11-25] MEDS: ONDANSETRON 4 MG/2 ML VIAL IVP PRN (16:18)
--- NOTE | 2016-11-25 17:07 | P.PN ---
Subjective A critically care consultation was requested on this 51-year-old morbidly obese female patient due to hypotension. The patient presented emergency department yesterday having neck pain and subsequently became evident that the pain was throughout her body knowing that the patient is having currently pain in her thigh, back, along with her neck. She has no neck stiffness. No headache. No change in mental status. No photophobia. CAT scan of the cervical spine was done and it showed no evidence of any epidural abscess or osseous lesions. The patient was subsequently found to be hypotensive. She was given IV fluids and despite that she remained hypotensive in the emergency department and based on that she was started on pressors and following that the patient was brought into the intensive care unit. My understanding is that the patient has received a total of 2 L of IV fluid in the form of normal saline and earlier this morning she was on norepinephrine infusion running at the rate of 10 mcg/m and the nurses were able to titrate off however at the time I december evaluation the patient's blood pressure was in the mid 70s systolic and the pressors were restarted. Her pain is waxing and waning and affecting throughout her body. The patient has no mental status change. The blood cultures showing gram- positive cocci. The patient has been given 2 g of Rocephin in the emergency department. The chest x-ray was clear and a urinalysis is showing white cell count of 41 with some rare bacteria. No lactic acid level has been obtained. No cardiac enzymes have been obtained. The patient was found to be in acute kidney injury. Her creatinine was at 2.7 and is currently down to 2.2 and she is producing adequate amount of urine output. The blood sugars were elevated and currently she is still elevated and her most recent blood sugar is at 254. She has a mild anion gap metabolic acidosis with a bicarb level of 20 and a gap of 15. No history of any cardiac disease. No history of congestion heart failure. The patient has had previous hospitalization for complications of diabetes mellitus. On 11/23/2016 the patient is being seen in follow-up. She is improved and she is hemodynamically stable and she is off pressors for the past 4-1/2 hours. The patient is a bit lethargic study and she is awake. The patient is following commands. The blood cultures came back coagulase-negative staph. The urine cultures came back positive for strep group B. The patient remains on a combination of Rocephin and vancomycin. We'll function is improving. Creatinine is down to 1.3. The urine output is adequate. The patient on insulin drip at 4 units an hour for blood sugar control. Lactic acid level was nonelevated. Ultrasound of the lower extremity showed no evidence of DVT. Ultrasound the kidneys was negative. The echo results are still pending. The patient is seen again today 11/24/2016 in follow-up on the regular medical floor. She is awake and alert in no acute distress. She denies any shortness of breath, cough or congestion. She is being treated for coagulase negative staph and urinary tract infection. She is currently on Rocephin. A follow-up blood culture revealed no growth A PICC line was placed yesterday. She states she is doing better today as compared to yesterday. She is maintaining good O2 saturations on room air. She's been afebrile. No leukocytosis. Creatinine 1.19. She is seen again today 11/25/2016 in follow-up. She is awake and alert in no acute distress. She denies any shortness of breath, off or congestion. Her creatinine is improving currently at 1.10. She is afebrile. No leukocytosis. She remains on ceftriaxone. Once converted to oral antibiotic she could be discharged home from the pulmonary and critical care standpoint Objective - Vital Signs Vital signs: Vital Signs Temp 97.0 F L 11/25/16 15:00 Pulse 69 11/25/16 15:00 Resp 19 11/25/16 15:00 BP 139/81 11/25/16 15:00 Pulse Ox 98 11/25/16 15:00 Intake & Output 11/24/16 11/25/16 11/25/16 18:59 06:59 18:59 Intake Total 580 100 Balance 580 100 Weight 146.8 kg Intake: Intake, IV Titration 100 Amount cefTRIAXone 2,000 mg In 100 Sodium Chloride 0.9% 100 ml @ 100 mls/hr IVPB Q24HR [facility] Rx#:[id number] Oral 480 100 Other: # Voids 1 4 2 # Bowel Movements 0 - Exam GENERAL EXAM: Morbidly obese. Alert, active, comfortable in no apparent distress. HEAD: Normocephalic. EYES: Normal reaction of pupils, equal size. NOSE: Clear with pink turbinates. THROAT: No erythema or exudates. NECK: No masses, no JVD. CHEST: No chest wall deformity. LUNGS: Equal air entry with no crackles, wheeze, rhonchi or dullness. CVS: S1 and S2 normal with no audible murmurs, regular rhythm. ABDOMEN: No hepatosplenomegaly, normal bowel sounds, no guarding or rigidity. SPINE: No scoliosis or deformity SKIN: No rashes CENTRAL NERVOUS SYSTEM: No focal deficits, tone is normal in all 4 extremities. Extremities: There is trace peripheral edema. No clubbing, no cyanosis. Peripheral pulses are intact. - Labs CBC & Chem 7: 11/25/16 08:08 11/25/16 08:08 Labs: Abnormal Lab Results - Last 24 Hours (Table) 11/24/16 11/25/16 11/25/16 Range/Units 21:01 02:25 07:28 RBC (3.80-5.40) m/uL Plt Count (150-450) k/uL Chloride (98-107) mmol/L BUN (7-17) mg/dL Creatinine (0.52-1.04) mg/dL Glucose (74-99) mg/dL POC Glucose (mg/dL) 202 H 236 H 197 H (75-99) mg/dL Magnesium (1.6-2.3) mg/dL Total Protein (6.3-8.2) g/dL Albumin (3.5-5.0) g/dL 11/25/16 11/25/16 11/25/16 Range/Units 08:08 08:08 11:46 RBC 3.75 L (3.80-5.40) m/uL Plt Count 145 L (150-450) k/uL Chloride 111 H (98-107) mmol/L BUN 19 H (7-17) mg/dL Creatinine 1.10 H (0.52-1.04) mg/dL Glucose 235 H (74-99) mg/dL POC Glucose (mg/dL) 184 H (75-99) mg/dL Magnesium 1.5 L (1.6-2.3) mg/dL Total Protein 5.3 L (6.3-8.2) g/dL Albumin 2.7 L (3.5-5.0) g/dL Microbiology - Last 24 Hours (Table) 11/22/16 19:40 Blood Culture - Preliminary Blood No Growth after 48 hours 11/22/16 19:30 Blood Culture - Preliminary Blood No Growth after 48 hours Assessment and Plan Plan: Assessment 1 acute hypotension, nonresponsive to fluid resuscitation and the patient is currently pressor dependent. Rule out septic shock knowing that the patient has gram-positive cocci in the blood and preliminary cultures have indicated positive gram-positive cocci. Further investigation needs to follow to identify source of an infection. On 11/23/2016, the patient's hypotension has recovered. We think it's a hypovolemic/septic hypotension. The blood cultures came back positive for coagulase-negative staph. There is a strep group B in the urine which probably is a representation of an underlying urine checked infection. The patient was covered with accommodation of Rocephin and vancomycin. I think the vancomycin can be discontinued. The fluid also can be switched to KVO as the patient is adequately resuscitated at this point. The patient is eating well. On 11/24/2016 patient was seen on the regular medical floor. She is awake and alert in no acute distress. Her follow-up blood cultures revealed no growth. She remains on Rocephin. On 11/25/2016 the patient is seen again in follow-up. She is awake and alert in no acute distress. The plan is for transition to oral antibiotics per infectious disease and discharge home. 2 acute kidney injury, nonoliguric, recovering 3 diabetes mellitus with a component of hyperglycemia and poorly controlled blood sugars, HbA1c was at 15 4 morbid obesity with a BMI 53.9 5 fibromyalgia with chronic pain 6 diffuse body aches including the neck back and thigh pain. No evidence of rhabdomyolysis 7 chronic insomnia 8 remote history of DVT, negative Dopplers 9 seizure disorder 10 bronchial asthma 11 chronic back pain Plan: The patient was seen and evaluated by Dr. Mcclain. The patient has no specific complaints today. We will continue her current medications. She'll remain on Rocephin and then converted to oral antibiotics as directed by infectious disease. We'll continue with her current medications. We'll increase her activity as tolerated. We'll continue to follow.
[2016-11-25 17:20] LABS: Glucose,Whole Blood 101 mg/dL (75-99)
[2016-11-25] MEDS ORDERED: FLUCONAZOLE 150 MG TAB PO SCH (19:30)
[2016-11-25] MEDS ORDERED: FLUCONAZOLE 100 MG TAB PO SCH (19:30)
[2016-11-25 21:15] LABS: Glucose,Whole Blood 106 mg/dL (75-99)
[2016-11-25] MEDS: QUEtiapine 100 MG TAB PO SCH (21:47)
--- NOTE | 2016-11-25 23:10 | P.PN ---
Subjective Principal diagnosis: fever and hypotension 51-year-old female presents the emergency center from her home setting with concerns to fever. The patient is a very poor historian and the chart is reviewed including the emergency center note. Apparently the patient was having difficulties with increasing amounts of pain to her neck upper back and lower back. She counseling presented to the emergency center where she was found evidence of a fever as well as relative hypotension. She underwent fluid resuscitation. She was found to have evidence of markedly elevated blood glucose with a markedly elevated hemoglobin A1c. Review from prior records reveals that she was on insulin therapy at home. However she has great difficulties understanding how to care for herself and was not giving herself insulin at home. Patient complains of a history of fibromyalgia and chronic pain and requests her pain medications consistently. She is very sedated at this point in time. Further patient comes in the chart. Nursing staff relates that she's had no emesis, no diarrhea, no open skin wounds. Patient is now much more awake today. As complaints of generalized pain. This is not new. Overall is feeling better today. Objective - Vital Signs Vital signs: Vital Signs Temp 97.0 F L 11/25/16 15:00 Pulse 69 11/25/16 15:00 Resp 19 11/25/16 15:00 BP 139/81 11/25/16 15:00 Pulse Ox 98 11/25/16 15:00 Intake & Output 11/25/16 11/25/16 11/26/16 06:59 18:59 06:59 Intake Total 100 1250 Balance 100 1250 Weight 146.8 kg Intake: Oral 100 1250 Other: # Voids 4 2 1 # Bowel Movements 1 - Exam Obese 51-year-old woman sedated at this time. Visualized appears to be very comfortable HEENT: Anicteric conjunctiva are pink and moist nasal mucosa grossly intact without significant lesions, there is no thrush. Report dentition Neck: The neck is supple without significant lymphadenopathy or thyromegaly. Lungs: Symmetrical air entry. Few expiratory wheezes no bronchial sounds are heard Heart: Regular rate and rhythm with an audible S1-S2, no S3 soft S4. There is no significant murmur click or rub, PMI was nondisplaced. Abdomen: Obese, Positive bowel sounds soft and nontender without palpable masses or organomegaly. There was no guarding or rebound. Extremities: The upper extremities have excellent pulses they are symmetric, no significant petechiae or telangiectasia. No splinter hemorrhages were noted. The lower extremities are free from significant edema. The peripheral pulses were 2+ and symmetric. Skin is without rash or breakdown no pressure ulcerations are noted the left arm IV site was present has resolved erythema. Similar to the right shoulder IV site. Which has resolved its erythema and tenderness. There is no induration at either site. There is no evidence of any necrosis. There is no ascending erythema from the left arm site. Neuro: Awake alert interactive seems comfortable interactive and calm at this time - Labs CBC & Chem 7: 11/25/16 08:08 11/25/16 08:08 Labs: Abnormal Lab Results - Last 24 Hours (Table) 11/25/16 11/25/16 11/25/16 Range/Units 02:25 07:28 08:08 RBC 3.75 L (3.80-5.40) m/uL Plt Count 145 L (150-450) k/uL Chloride (98-107) mmol/L BUN (7-17) mg/dL Creatinine (0.52-1.04) mg/dL Glucose (74-99) mg/dL POC Glucose (mg/dL) 236 H 197 H (75-99) mg/dL Magnesium (1.6-2.3) mg/dL Total Protein (6.3-8.2) g/dL Albumin (3.5-5.0) g/dL 11/25/16 11/25/16 11/25/16 Range/Units 08:08 11:46 17:18 RBC (3.80-5.40) m/uL Plt Count (150-450) k/uL Chloride 111 H (98-107) mmol/L BUN 19 H (7-17) mg/dL Creatinine 1.10 H (0.52-1.04) mg/dL Glucose 235 H (74-99) mg/dL POC Glucose (mg/dL) 184 H 101 H (75-99) mg/dL Magnesium 1.5 L (1.6-2.3) mg/dL Total Protein 5.3 L (6.3-8.2) g/dL Albumin 2.7 L (3.5-5.0) g/dL 11/25/16 Range/Units 21:11 RBC (3.80-5.40) m/uL Plt Count (150-450) k/uL Chloride (98-107) mmol/L BUN (7-17) mg/dL Creatinine (0.52-1.04) mg/dL Glucose (74-99) mg/dL POC Glucose (mg/dL) 106 H (75-99) mg/dL Magnesium (1.6-2.3) mg/dL Total Protein (6.3-8.2) g/dL Albumin (3.5-5.0) g/dL Microbiology - Last 24 Hours (Table) 11/22/16 19:40 Blood Culture - Preliminary Blood No Growth after 72 hours 11/22/16 19:30 Blood Culture - Preliminary Blood No Growth after 72 hours Laboratory Results WBC 4.0 k/uL (3.8-10.6) 11/25/16 08:08 RBC 3.75 m/uL (3.80-5.40) L 11/25/16 08:08 Hgb 11.4 gm/dL (11.4-16.0) 11/25/16 08:08 Hct 35.2 % (34.0-46.0) 11/25/16 08:08 MCV 93.9 fL (80.0-100.0) 11/25/16 08:08 MCH 30.4 pg (25.0-35.0) 11/25/16 08:08 MCHC 32.3 g/dL (31.0-37.0) 11/25/16 08:08 RDW 12.7 % (11.5-15.5) 11/25/16 08:08 Plt Count 145 k/uL (150-450) L 11/25/16 08:08 Neutrophils % 33 % 11/25/16 08:08 Lymphocytes % 49 % 11/25/16 08:08 Monocytes % 7 % 11/25/16 08:08 Eosinophils % 8 % 11/25/16 08:08 Basophils % 1 % 11/25/16 08:08 Neutrophils # 1.3 k/uL (1.3-7.7) 11/25/16 08:08 Lymphocytes # 1.9 k/uL (1.0-4.8) 11/25/16 08:08 Monocytes # 0.3 k/uL (0-1.0) 11/25/16 08:08 Eosinophils # 0.3 k/uL (0-0.7) 11/25/16 08:08 Basophils # 0.0 k/uL (0-0.2) 11/25/16 08:08 Manual Slide Review Performed 11/22/16 04:33 ESR 37 mm/hr (0-20) H 11/22/16 19:40 PT 11.1 sec (9.0-12.0) 11/21/16 12:03 INR 1.1 (<1.1) 11/21/16 12:03 APTT 22.1 sec (22.0-30.0) 11/21/16 12:03 Sodium 142 mmol/L (137-145) 11/25/16 08:08 Potassium 4.5 mmol/L (3.5-5.1) 11/25/16 08:08 Chloride 111 mmol/L (98-107) H 11/25/16 08:08 Carbon Dioxide 23 mmol/L (22-30) 11/25/16 08:08 Anion Gap 8 mmol/L 11/25/16 08:08 BUN 19 mg/dL (7-17) H 11/25/16 08:08 Creatinine 1.10 mg/dL (0.52-1.04) H 11/25/16 08:08 Est GFR (MDRD) Af Amer >60 (>60 ml/min/1.73 sqM) 11/25/16 08:08 Est GFR (MDRD) Non-Af 52 (>60 ml/min/1.73 sqM) 11/25/16 08:08 Glucose 235 mg/dL (74-99) H 11/25/16 08:08 POC Glucose (mg/dL) 106 mg/dL (75-99) H 11/25/16 21:11 POC Glu Youth Worker MICHELLE Lyric Ríos 11/25/16 21:[address] Glu mg/dL 352 mg/dL 11/23/16 04:33 Hemoglobin A1c 13.9 % (4.2-6.1) H 11/23/16 04:33 Plasma Lactic Acid Steve 1.6 mmol/L (0.7-2.0) 11/22/16 12:28 Calcium 8.6 mg/dL (8.4-10.2) 11/25/16 08:08 Phosphorus 4.2 mg/dL (2.5-4.5) 11/25/16 08:08 Magnesium 1.5 mg/dL (1.6-2.3) L 11/25/16 08:08 Total Bilirubin 0.2 mg/dL (0.2-1.3) 11/25/16 08:08 AST 30 U/L (14-36) 11/25/16 08:08 ALT 32 U/L (9-52) 11/25/16 08:08 Alkaline Phosphatase 69 U/L (38-126) 11/25/16 08:08 Creatine Kinase 590 U/L (30-135) H 11/22/16 12:28 Total Creatine Kinase 514 U/L (30-135) H 11/21/16 09:30 CK-MB (CK-2) 6.5 ng/mL (0.0-2.4) H* 11/21/16 09:30 CK-MB (CK-2) Rel Index 1.3 11/21/16 09:30 Troponin I <0.012 ng/mL (0.000-0.034) 11/22/16 12:28 Total Protein 5.3 g/dL (6.3-8.2) L 11/25/16 08:08 Albumin 2.7 g/dL (3.5-5.0) L 11/25/16 08:08 Prealbumin 18 mg/dL (18-36) 11/22/16 12:23 Cortisol 15 ug/dL 11/22/16 08:41 Urine Color Yellow 11/21/16 14:45 Urine Appearance Cloudy (Clear) H 11/21/16 14:45 Urine pH 5.0 (5.0-8.0) 11/21/16 14:45 Ur Specific [place] 1.018 (1.001-1.035) 11/21/16 14:45 Urine Protein 1+ (Negative) H 11/21/16 14:45 Urine Glucose (UA) 3+ (Negative) H 11/21/16 14:45 Urine Ketones Negative (Negative) 11/21/16 14:45 Urine Blood Small (Negative) H 11/21/16 14:45 Urine Nitrite Negative (Negative) 11/21/16 14:45 Urine Bilirubin Negative (Negative) 11/21/16 14:45 Urine Urobilinogen <2.0 mg/dL (<2.0) 11/21/16 14:45 Ur Leukocyte Esterase Large (Negative) H 11/21/16 14:45 Urine RBC 17 /hpf (0-5) H 11/21/16 14:45 Urine WBC 41 /hpf (0-5) H 11/21/16 14:45 Ur Squamous Epith Cells 13 /hpf (0-4) H 11/21/16 14:45 Urine Bacteria Rare /hpf (None) H 11/21/16 14:45 Hyaline Casts 57 /lpf (0-2) H 11/21/16 14:45 Urine Mucus Occasional /hpf (None) H 11/21/16 14:45 Microbiology 11/22/16 19:40 Blood Blood Culture - Preliminary No Growth after 72 hours 11/22/16 19:30 Blood Blood Culture - Preliminary No Growth after 72 hours 11/21/16 12:03 Blood Blood Culture Gram Stain - Final 11/21/16 12:03 Blood Blood Culture - Final Staphylococcus epidermidis 11/21/16 12:03 Blood Blood Culture - Final 11/21/16 14:45 Urine,Voided Urine Culture - Final Strep agalactiae - (group b) Assessment and Plan (1) Severe sepsis with septic shock Narrative/Plan: 51-year-old woman who has a history of superobesity, chronic pain, fibromyalgia presents to the emergency center feeling poorly with fever and worsening pain. The patient has been brought to the intensive care unit where she is without evidence of hyperglycemia, fever, leukocytosis as well as hypotension. She has received fluid resuscitation and required vasopressor therapy. She appears to be having sepsis with shock is responding to fluid resuscitation. The hypotension may be exacerbated by her current pain medications. She does have evidence of acute renal failure. This would make her morphine dose excessive and constantly is cut in half. Dose adjustment has improved her significant sedation. Hypotension resolved She is receiving further fluid bolus Laboratory is calling a positive blood culture with gram-positive cocci in clusters. As noted turned out to be coagulase-negative staph. Acute renal failure is improving Urinalysis is abnormal. Urine cultures now showing evidence of the group B strep. Sepsis with urinary system appears to be the likely current etiology of her sepsis. The blood cultures are now come back as coag-negative staph and will not need further evaluation. Vancomycin discontinued. Only needs Rocephin therapy. Can be transitioned to oral antibiotic when she is ready for discharge, would plan cefuroxime 500 mg every 12 hours for 7 days. This has been sent to her pharmacy Antifungal therapy with fluconazole will be utilized for 1 week Does not seem to need an echocardiogram at this time. Hypotension has resolved. Black cohosh was restarted. Status: Acute
[2016-11-26 02:29] LABS: Glucose,Whole Blood 197 mg/dL (75-99)
[2016-11-26] MEDS: INSULIN LISPRO (humaLOG) 300 UNIT/3 ML VIAL SQ SCH ×5 (02:58→12:55)
[2016-11-26] MEDS: ONDANSETRON 4 MG/2 ML VIAL IVP PRN ×2 (04:34→09:31)
[2016-11-26 07:16] LABS: Glucose,Whole Blood 226 mg/dL (75-99)
[2016-11-26 08:45] VITALS: BP 116/75; RESP 18; TEMP 97.3
[2016-11-26 09:14] LABS: Basophils # (A) 0.1 k/uL (0-0.2); Basophils % (A) 1 %; CH 30.2; Eosinophils # (A) 0.4 k/uL (0-0.7); Eosinophils % (A) 8 %; HCT 39.6 % (34.0-46.0); HDW 2.48; HGB 12.4 gm/dL (11.4-16.0); Hypochromasia Slight; Luc # (Auto) 0.16; Luc % (Auto) 3; Lymphocytes # (A) 2.4 k/uL (1.0-4.8); Lymphocytes % (A) 42 %; MCH 30.6 pg (25.0-35.0); MCHC 31.3 g/dL (31.0-37.0); MCV 97.7 fL (80.0-100.0); Mean Platelet Volume 7.5; Monocytes # (A) 0.3 k/uL (0-1.0); Monocytes % (A) 6 %; Neutrophils # (A) 2.2 k/uL (1.3-7.7); Neutrophils % (A) 40 %; RBC 4.05 m/uL (3.80-5.40); WBC 5.6 k/uL (3.8-10.6); WBC (Perox) 5.91
[2016-11-26] MEDS: MORPHINE SULFATE IR 15 MG TABLET PO SCH ×2 (09:21→13:01)
[2016-11-26] MEDS: LORATADINE 10 MG TAB PO SCH (09:22)
[2016-11-26] MEDS: GABAPENTIN 100 MG CAP PO SCH (09:22)
[2016-11-26] MEDS: HEPARIN SODIUM,PORCINE 5,000 UNIT/ML 1 ML VIAL SQ SCH (09:22)
[2016-11-26] MEDS: TOPIRAMATE 100 MG TAB PO SCH (09:23)
[2016-11-26] MEDS: PANTOPRAZOLE 40 MG TABLET PO SCH (09:23)
[2016-11-26] MEDS: CYCLOBENZAPRINE 10 MG TAB PO SCH (09:24)
[2016-11-26] MEDS: cefTRIAXone 2,000 MG in SODIUM CHLORIDE 0.9% 100 ML IVPB SCH (09:24)
[2016-11-26] MEDS: INSULIN DETEMIR 100 UNIT/ML 10 ML VIAL SQ SCH (09:32)
[2016-11-26] MEDS: NYSTATIN 100,000 UNIT/GM POWD 15 GM TOPICAL SCH (09:39)
[2016-11-26 09:41] LABS: Total Bilirubin 0.7 mg/dL (0.2-1.3); Total Protein 6.5 g/dL (6.3-8.2)
[2016-11-26 09:50] LABS: Magnesium 1.4 mg/dL (1.6-2.3); Phosphorous 5.4 mg/dL (2.5-4.5)
[2016-11-26 10:23] VITALS: PULSE 79
--- NOTE | 2016-11-26 10:51 | IR ---
PICC LINE PLACEMENT: HISTORY: Infection requiring long-term antibiotic therapy PROCEDURE: Ultrasound and fluoroscopic guidance of PICC line placement. COMPLICATIONS: None ANESTHESIA: 1. 1% Lidocaine locally. FINDINGS/TECHNIQUE: The procedure was explained to the patient. The risks, complications, benefits and alternatives were discussed and any questions were answered. Informed consent was obtained. The patient was placed supine on the fluoroscopic table and prepped and draped in the usual sterile [facility] ion. Utilizing a 21 gauge needle and sonographic and fluoroscopic guidance, access in the [ ] was a chieved and there is placement of a 0.018 guidewire. The vein is patent. A 4-F. sheath was placed o ana maria the guidewire. The guidewire and dilator were removed and a 4-F. PICC line was placed through th e sheath with the tip at the level of the SVC. The sheath was removed, the catheter was flushed and sutured into position. The patient was stable throughout the procedure and remained stable upon disc harge from the Department of Radiology. The vein puncture was patent under ultrasound. A coyne scale image was obtained to document patency of the vein punctured. All elements of the maximal barrier technique were utilized. FLUOROSCOPY TIME: 0.4 minute IMPRESSION: Successful PICC line placement under ultrasound and fluoroscopic guidance.
[2016-11-26 12:08] LABS: Glucose,Whole Blood 253 mg/dL (75-99)
--- NOTE | 2016-11-26 18:36 | P.PN ---
Subjective Principal diagnosis: fever and hypotension 51-year-old female presents the emergency center from her home setting with concerns to fever. The patient is a very poor historian and the chart is reviewed including the emergency center note. Apparently the patient was having difficulties with increasing amounts of pain to her neck upper back and lower back. She counseling presented to the emergency center where she was found evidence of a fever as well as relative hypotension. She underwent fluid resuscitation. She was found to have evidence of markedly elevated blood glucose with a markedly elevated hemoglobin A1c. Review from prior records reveals that she was on insulin therapy at home. However she has great difficulties understanding how to care for herself and was not giving herself insulin at home. Patient complains of a history of fibromyalgia and chronic pain and requests her pain medications consistently. She is very sedated at this point in time. Further patient comes in the chart. Nursing staff relates that she's had no emesis, no diarrhea, no open skin wounds. Patient is now much more awake today. As complaints of generalized pain. This is not new. Overall is feeling better today. Looks forward to going home today Objective - Vital Signs Vital signs: Vital Signs Temp 97.3 F L 11/26/16 07:00 Pulse 79 11/26/16 08:00 Resp 18 11/26/16 08:00 BP 116/75 11/26/16 07:00 Pulse Ox 95 11/26/16 07:50 Intake & Output 11/25/16 11/26/16 11/26/16 18:59 06:59 18:59 Intake Total 1250 1 Balance 1250 1 Weight 146.8 kg Intake: Oral 1250 1 Other: Voiding Method Toilet Toilet Bedside Commode Bedside Commode # Voids 2 2 2 # Bowel Movements 1 - Exam Obese 51-year-old woman sedated at this time. Visualized appears to be very comfortable HEENT: Anicteric conjunctiva are pink and moist nasal mucosa grossly intact without significant lesions, there is no thrush. Report dentition Neck: The neck is supple without significant lymphadenopathy or thyromegaly. Lungs: Symmetrical air entry. Few expiratory wheezes no bronchial sounds are heard Heart: Regular rate and rhythm with an audible S1-S2, no S3 soft S4. There is no significant murmur click or rub, PMI was nondisplaced. Abdomen: Obese, Positive bowel sounds soft and nontender without palpable masses or organomegaly. There was no guarding or rebound. Extremities: The upper extremities have excellent pulses they are symmetric, no significant petechiae or telangiectasia. No splinter hemorrhages were noted. The lower extremities are free from significant edema. The peripheral pulses were 2+ and symmetric. Skin is without rash or breakdown no pressure ulcerations are noted the left arm IV site was present has resolved erythema. Similar to the right shoulder IV site. Which has resolved its erythema and tenderness. There is no induration at either site. There is no evidence of any necrosis. There is no ascending erythema from the left arm site. Neuro: Awake alert interactive seems comfortable interactive and calm at this time - Labs CBC & Chem 7: 11/26/16 08:21 11/26/16 08:21 Labs: Abnormal Lab Results - Last 24 Hours (Table) 11/25/16 11/26/16 11/26/16 Range/Units 21:11 02:26 07:11 Chloride (98-107) mmol/L Carbon Dioxide (22-30) mmol/L BUN (7-17) mg/dL Creatinine (0.52-1.04) mg/dL Glucose (74-99) mg/dL POC Glucose (mg/dL) 106 H 197 H 226 H (75-99) mg/dL Phosphorus (2.5-4.5) mg/dL Magnesium (1.6-2.3) mg/dL AST (14-36) U/L Albumin (3.5-5.0) g/dL 11/26/16 11/26/16 Range/Units 08:21 12:01 Chloride 108 H (98-107) mmol/L Carbon Dioxide 21 L (22-30) mmol/L BUN 20 H (7-17) mg/dL Creatinine 1.16 H (0.52-1.04) mg/dL Glucose 261 H (74-99) mg/dL POC Glucose (mg/dL) 253 H (75-99) mg/dL Phosphorus 5.4 H (2.5-4.5) mg/dL Magnesium 1.4 L (1.6-2.3) mg/dL AST 50 H (14-36) U/L Albumin 3.2 L (3.5-5.0) g/dL Microbiology - Last 24 Hours (Table) 11/22/16 19:40 Blood Culture - Preliminary Blood No Growth after 72 hours 11/22/16 19:30 Blood Culture - Preliminary Blood No Growth after 72 hours Laboratory Results WBC 5.6 k/uL (3.8-10.6) 11/26/16 08:21 RBC 4.05 m/uL (3.80-5.40) 11/26/16 08:21 Hgb 12.4 gm/dL (11.4-16.0) 11/26/16 08:21 Hct 39.6 % (34.0-46.0) 11/26/16 08:21 MCV 97.7 fL (80.0-100.0) 11/26/16 08:21 MCH 30.6 pg (25.0-35.0) 11/26/16 08:21 MCHC 31.3 g/dL (31.0-37.0) 11/26/16 08:21 RDW 13.0 % (11.5-15.5) 11/26/16 08:21 Plt Count 167 k/uL (150-450) 11/26/16 08:21 Neutrophils % 40 % 11/26/16 08:21 Lymphocytes % 42 % 11/26/16 08:21 Monocytes % 6 % 11/26/16 08:21 Eosinophils % 8 % 11/26/16 08:21 Basophils % 1 % 11/26/16 08:21 Neutrophils # 2.2 k/uL (1.3-7.7) 11/26/16 08:21 Lymphocytes # 2.4 k/uL (1.0-4.8) 11/26/16 08:21 Monocytes # 0.3 k/uL (0-1.0) 11/26/16 08:21 Eosinophils # 0.4 k/uL (0-0.7) 11/26/16 08:21 Basophils # 0.1 k/uL (0-0.2) 11/26/16 08:21 Manual Slide Review Performed 11/22/16 04:33 Hypochromasia Slight 11/26/16 08:21 ESR 37 mm/hr (0-20) H 11/22/16 19:40 PT 11.1 sec (9.0-12.0) 11/21/16 12:03 INR 1.1 (<1.1) 11/21/16 12:03 APTT 22.1 sec (22.0-30.0) 11/21/16 12:03 Sodium 141 mmol/L (137-145) 11/26/16 08:21 Potassium 5.0 mmol/L (3.5-5.1) 11/26/16 08:21 Chloride 108 mmol/L (98-107) H 11/26/16 08:21 Carbon Dioxide 21 mmol/L (22-30) L 11/26/16 08:21 Anion Gap 12 mmol/L 11/26/16 08:21 BUN 20 mg/dL (7-17) H 11/26/16 08:21 Creatinine 1.16 mg/dL (0.52-1.04) H 11/26/16 08:21 Est GFR (MDRD) Af Amer 60 (>60 ml/min/1.73 sqM) 11/26/16 08:21 Est GFR (MDRD) Non-Af 49 (>60 ml/min/1.73 sqM) 11/26/16 08:21 Glucose 261 mg/dL (74-99) H 11/26/16 08:21 POC Glucose (mg/dL) 253 mg/dL (75-99) H 11/26/16 12:01 POC Glu Receiving Manager ID Bhavani Love 11/26/16 12:[address] Glu mg/dL 352 mg/dL 11/23/16 04:33 Hemoglobin A1c 13.9 % (4.2-6.1) H 11/23/16 04:33 Plasma Lactic Acid Steve 1.6 mmol/L (0.7-2.0) 11/22/16 12:28 Calcium 9.0 mg/dL (8.4-10.2) 11/26/16 08:21 Phosphorus 5.4 mg/dL (2.5-4.5) H 11/26/16 08:21 Magnesium 1.4 mg/dL (1.6-2.3) L 11/26/16 08:21 Total Bilirubin 0.7 mg/dL (0.2-1.3) 11/26/16 08:21 AST 50 U/L (14-36) H 11/26/16 08:21 ALT 32 U/L (9-52) 11/26/16 08:21 Alkaline Phosphatase 70 U/L (38-126) 11/26/16 08:21 Creatine Kinase 590 U/L (30-135) H 11/22/16 12:28 Total Creatine Kinase 514 U/L (30-135) H 11/21/16 09:30 CK-MB (CK-2) 6.5 ng/mL (0.0-2.4) H* 11/21/16 09:30 CK-MB (CK-2) Rel Index 1.3 11/21/16 09:30 Troponin I <0.012 ng/mL (0.000-0.034) 11/22/16 12:28 Total Protein 6.5 g/dL (6.3-8.2) 11/26/16 08:21 Albumin 3.2 g/dL (3.5-5.0) L 11/26/16 08:21 Prealbumin 18 mg/dL (18-36) 11/22/16 12:23 Cortisol 15 ug/dL 11/22/16 08:41 Urine Color Yellow 11/21/16 14:45 Urine Appearance Cloudy (Clear) H 11/21/16 14:45 Urine pH 5.0 (5.0-8.0) 11/21/16 14:45 Ur Specific [place] 1.018 (1.001-1.035) 11/21/16 14:45 Urine Protein 1+ (Negative) H 11/21/16 14:45 Urine Glucose (UA) 3+ (Negative) H 11/21/16 14:45 Urine Ketones Negative (Negative) 11/21/16 14:45 Urine Blood Small (Negative) H 11/21/16 14:45 Urine Nitrite Negative (Negative) 11/21/16 14:45 Urine Bilirubin Negative (Negative) 11/21/16 14:45 Urine Urobilinogen <2.0 mg/dL (<2.0) 11/21/16 14:45 Ur Leukocyte Esterase Large (Negative) H 11/21/16 14:45 Urine RBC 17 /hpf (0-5) H 11/21/16 14:45 Urine WBC 41 /hpf (0-5) H 11/21/16 14:45 Ur Squamous Epith Cells 13 /hpf (0-4) H 11/21/16 14:45 Urine Bacteria Rare /hpf (None) H 11/21/16 14:45 Hyaline Casts 57 /lpf (0-2) H 11/21/16 14:45 Urine Mucus Occasional /hpf (None) H 11/21/16 14:45 Microbiology 11/22/16 19:40 Blood Blood Culture - Preliminary No Growth after 72 hours 11/22/16 19:30 Blood Blood Culture - Preliminary No Growth after 72 hours 11/21/16 12:03 Blood Blood Culture Gram Stain - Final 11/21/16 12:03 Blood Blood Culture - Final Staphylococcus epidermidis 11/21/16 12:03 Blood Blood Culture - Final 11/21/16 14:45 Urine,Voided Urine Culture - Final Strep agalactiae - (group b) Assessment and Plan (1) Severe sepsis with septic shock Narrative/Plan: 51-year-old woman who has a history of superobesity, chronic pain, fibromyalgia presents to the emergency center feeling poorly with fever and worsening pain. The patient has been brought to the intensive care unit where she is without evidence of hyperglycemia, fever, leukocytosis as well as hypotension. She has received fluid resuscitation and required vasopressor therapy. She appears to be having sepsis with shock is responding to fluid resuscitation. The hypotension may be exacerbated by her current pain medications. She does have evidence of acute renal failure. This would make her morphine dose excessive and constantly is cut in half. Dose adjustment has improved her significant sedation. Hypotension resolved She is receiving further fluid bolus Laboratory is calling a positive blood culture with gram-positive cocci in clusters. As noted turned out to be coagulase-negative staph. Acute renal failure is improving Urinalysis is abnormal. Urine cultures now showing evidence of the group B strep. Sepsis with urinary system appears to be the likely current etiology of her sepsis. The blood cultures are now come back as coag-negative staph and will not need further evaluation. Vancomycin discontinued. Only needs Rocephin therapy. Will be transitioned to oral antibiotic when she is ready for discharge, would plan cefuroxime 500 mg every 12 hours for 7 days. This has been sent to her pharmacy Antifungal therapy with fluconazole will be utilized for 1 week Does not seem to need an echocardiogram at this time. Hypotension has resolved. Black cohosh was restarted. Status: Acute
== END 2016-11-26 16:03 | disposition home health service (06) | DRG 871 ==
LOC: EC 08:59 → 6SEL 12:32 → 6ICU 14:55 → 4MS4W 11-23 15:11
PROVIDERS: ADMIT Internal Medicine; ATTEND Internal Medicine
PROC: 02HV33Z Insertion of Infusion Device into Superior Vena Cava, Percutaneous Approach (ICD-10-PCS; principal; 2016-11-23 08:30)
PROC: 0T9B70Z Drainage of Bladder with Drainage Device, Via Natural or Artificial Opening (ICD-10-PCS; 2016-11-23 08:30)
DX: A40.1 Sepsis due to streptococcus, group B (principal); R65.21 Severe sepsis with septic shock; N17.0 Acute kidney failure with tubular necrosis; E87.2 Acidosis; I95.9 Hypotension, unspecified; E11.65 Type 2 diabetes mellitus with hyperglycemia; Z68.43 Body mass index [BMI] 50.0-59.9, adult; N39.0 Urinary tract infection, site not specified; E66.01 Morbid (severe) obesity due to excess calories; I10 Essential (primary) hypertension; J45.909 Unspecified asthma, uncomplicated; G40.909 Epilepsy, unspecified, not intractable, without status epilepticus; K21.9 Gastro-esophageal reflux disease without esophagitis; T38.3X6A Underdosing of insulin and oral hypoglycemic [antidiabetic] drugs, initial encounter; T40.2X5A Adverse effect of other opioids, initial encounter; E86.1 Hypovolemia; M51.36 Other intervertebral disc degeneration, lumbar region; M19.90 Unspecified osteoarthritis, unspecified site; R20.0 Anesthesia of skin; M54.2 Cervicalgia; M79.7 Fibromyalgia; G89.29 Other chronic pain; F40.240 Claustrophobia; F51.04 Psychophysiologic insomnia; G43.909 Migraine, unspecified, not intractable, without status migrainosus; B37.2 Candidiasis of skin and nail; B95.7 Other staphylococcus as the cause of diseases classified elsewhere; R29.6 Repeated falls; R40.2410 Glasgow coma scale score 13-15, unspecified time; R11.0 Nausea; Z91.14 Patient's other noncompliance with medication regimen; Z71.3 Dietary counseling and surveillance; Z87.01 Personal history of pneumonia (recurrent); Z91.81 History of falling; Z80.42 Family history of malignant neoplasm of prostate; Z80.3 Family history of malignant neoplasm of breast; Z86.718 Personal history of other venous thrombosis and embolism; Z83.3 Family history of diabetes mellitus; Z79.899 Other long term (current) drug therapy; Z90.710 Acquired absence of both cervix and uterus; Z90.49 Acquired absence of other specified parts of digestive tract; Z98.42 Cataract extraction status, left eye; Z87.19 Personal history of other diseases of the digestive system; Z91.19 Patient's noncompliance with other medical treatment and regimen; Z87.828 Personal history of other (healed) physical injury and trauma; Z79.4 Long term (current) use of insulin; Z79.891 Long term (current) use of opiate analgesic; Z91.040 Latex allergy status; Z88.5 Allergy status to narcotic agent; Z88.0 Allergy status to penicillin; Z88.2 Allergy status to sulfonamides; Z91.048 Other nonmedicinal substance allergy status; Z63.4 Disappearance and death of family member
CPT/HCPCS: 36415; 36569; 71020; 72050; 72125; 76770; 76937; 77001; 80048; 80053; 81001; 82533; 82550; 82553; 83036; 83605; 83735; 84100; 84134; 84484; 85025; 85610; 85652; 85730; 86140; 87040; 87077; 87086; 87186; 93005; 93306; 93970; 94760; 96360; 96361; 96365; 96366; 96367; 96375; 96376; 99284; 99291

== ENCOUNTER → 2016-12-28 | Outpatient (CLI) | payer OTHER ==
[2016-12-28 16:23] LABS: CH 30.4; CHCM 32.5; HCT 42.2 % (34.0-46.0); HDW 2.57; HGB 13.6 gm/dL (11.4-16.0); MCH 30.3 pg (25.0-35.0); MCHC 32.3 g/dL (31.0-37.0); MCV 93.9 fL (80.0-100.0); RBC 4.49 m/uL (3.80-5.40); RDW 13.3 % (11.5-15.5); WBC 7.7 k/uL (3.8-10.6)
[2016-12-28 16:30] LABS: Anion Gap 12 mmol/L; Blood Urea Nitrogen 18 mg/dL (7-17); Calcium 9.3 mg/dL (8.4-10.2); Carbon Dioxide 24 mmol/L (22-30); Chloride 105 mmol/L (98-107); Glucose 353 mg/dL (74-99); Iron 57 ug/dL (37-170); Magnesium 1.2 mg/dL (1.6-2.3); Non-African American GFR(MDRD) 52 (>60 ml/min/1.73 sqM); Phosphorous 4.6 mg/dL (2.5-4.5); Potassium 4.2 mmol/L (3.5-5.1); Sodium 141 mmol/L (137-145); Uric Acid 7.4 mg/dL (3.7-7.4)
[2016-12-28 16:39] LABS: % Iron Saturation 24.1 % (20-50); Total Iron Binding Capacity 237 ug/dL (265-497)
== END | disposition home or self-care (01) ==
LOC: LABWHC1 15:44
PROVIDERS: ATTEND Internal Medicine Nephrology
DX: N18.3 Chronic kidney disease, stage 3 (moderate) (principal)
CPT/HCPCS: 36415; 80048; 82306; 83540; 83550; 83735; 83970; 84100; 84550; 85027

== ENCOUNTER → 2016-12-29 | Outpatient (CLI) | payer OTHER ==
[2016-12-29 17:19] LABS: Appearance,Urine Clear (Clear); Bilirubin,Urine Negative (Negative); Glucose,Urine (UA) 4+ (Negative); Ketones,Urine Negative (Negative); Leukocyte Esterase,Urine Negative (Negative); Nitrite,Urine Negative (Negative); PH, Urine 6.5 (5.0-8.0); Protein,Urine Negative (Negative); Specific Gravity,Urine 1.023 (1.001-1.035); UA Billing (MACRO vs. MICRO) CHEM; Urobilinogen,Urine <2.0 mg/dL (<2.0)
== END | disposition home or self-care (01) ==
LOC: LABWHC1 16:06
PROVIDERS: ATTEND Internal Medicine Nephrology
DX: N18.3 Chronic kidney disease, stage 3 (moderate) (principal)
CPT/HCPCS: 81003

== ENCOUNTER 2017-01-13 14:28 | Emergency (ER) | payer OTHER ==
[2017-01-13 14:42] VITALS: BP 136/96; PULSE 90; RESP 20; TEMP 98.4
[2017-01-13] MEDS ORDERED: MORPHINE SULFATE 4 MG/ML SYRINGE IM STA (15:19)
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
--- NOTE | 2017-01-13 15:48 | CT ---
EXAMINATION TYPE: CT brain ras ayoub con DATE OF EXAM: 01/13/2017 3:37 PM COMPARISON: NONE HISTORY: Patient denies head complaints. Patient complains of neck pain and left shoulder pain post fall today. CT DLP: [address] of the brain was performed. The ventricles, basal cisterns and sulci overlying the cerebral convexities demonstrate mild enlargem ent. There is no evidence for intracranial hemorrhage or sulcal effacement. There is decreased attenuatio n about the periventricular white matter and deep white matter of both cerebral hemispheres, compatib le with chronic small vessel ischemia. No mass effects are seen. If symptoms persist consider MRI. Osseous calvarium is intact. Large right frontal osteoma outer table. IMPRESSION: 1. Age related atrophic and chronic small vessel ischemic change without acute intracranial process seen at this time. CT Cervical Spine: Unenhanced CT of the cervical spine was performed with bone and soft tissue window settings submitted . Coronal and sagittal reconstruction is obtained. There is normal alignment and prevertebral soft tissues. No evidence for acute cervical fracture . Scattered degenerative disc disease and spondylosis. Biapical scarring. IMPRESSION: 1. No evidence for acute fracture or subluxation of the cervical spine.
--- NOTE | 2017-01-13 16:11 | XR ---
EXAMINATION TYPE: XR shoulder complete LT DATE OF EXAM: 01/13/2017 4:07 PM CLINICAL HISTORY: pain COMPARISON: 05/11/2016 TECHNIQUE: Three views of the left shoulder are obtained. FINDINGS: There is no acute fracture/dislocation evident. The acromioclavicular and glenohumeral maddy int spaces appear mildly narrowed. Calcific tendinopathy noted. The visualized ribs are intact and u nremarkable. IMPRESSION: 1. There is no acute fracture or dislocation. ICD 10 NO FRACTURE, INITIAL EVALUATION
--- NOTE | 2017-01-13 16:12 | XR ---
EXAMINATION TYPE: XR lumbar spine 2 or 3V DATE OF EXAM: 01/13/2017 4:07 PM CLINICAL HISTORY: pain TECHNIQUE: Three views of the lumbar spine are submitted. COMPARISON: February 21, 2014 FINDINGS: There are 5 lumbar type vertebral bodies identified. Laminectomy and fusion changes L3-L5 S1. Interve rtebral body spacer at L5-S1. Stable grade 1 anterolisthesis L5 on S1 measuring 8 mm. Scattered degen erative disc space narrowing and facet joint arthropathy. Vertebral body heights are within normal li mits. The overlying soft tissue appears unremarkable. IMPRESSION: No acute fracture or dislocation is seen in the lumbar spine. ICD 10 NO FRACTURE, INITIAL EVALUATION
== END 2017-01-13 16:37 | disposition home or self-care (01) ==
LOC: EC 14:28
DX: S46.912A Strain of unspecified muscle, fascia and tendon at shoulder and upper arm level, left arm, initial encounter (principal); S16.1XXA Strain of muscle, fascia and tendon at neck level, initial encounter; S39.012A Strain of muscle, fascia and tendon of lower back, initial encounter; S00.81XA Abrasion of other part of head, initial encounter; I10 Essential (primary) hypertension; E11.9 Type 2 diabetes mellitus without complications; G40.909 Epilepsy, unspecified, not intractable, without status epilepticus; G89.29 Other chronic pain; E66.01 Morbid (severe) obesity due to excess calories; Z79.84 Long term (current) use of oral hypoglycemic drugs; Z79.899 Other long term (current) drug therapy; Z88.0 Allergy status to penicillin; Z88.1 Allergy status to other antibiotic agents; Z88.5 Allergy status to narcotic agent; Z91.09 Other allergy status, other than to drugs and biological substances; Z91.040 Latex allergy status; Z86.69 Personal history of other diseases of the nervous system and sense organs; Z98.890 Other specified postprocedural states; Z68.43 Body mass index [BMI] 50.0-59.9, adult; V03.19XA Pedestrian with other conveyance injured in collision with car, pick-up truck or van in traffic accident, initial encounter; Y92.410 Unspecified street and highway as the place of occurrence of the external cause; Y93.89 Activity, other specified
CPT/HCPCS: 72100; 73030; 72125; 70450; 99284; 96372; J2270

== ENCOUNTER 2017-01-17 07:55 | Emergency (ER) | payer OTHER ==
[2017-01-17 08:03] VITALS: BP 135/70; PULSE 84; RESP 18; TEMP 97.7
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
--- NOTE | 2017-01-17 09:05 | XR ---
Left forearm HISTORY: Pain, trauma 5 days prior 2 views of the left forearm Bone mineralization, joint spaces and alignment are maintained IMPRESSION: No fracture or dislocation.
--- NOTE | 2017-01-17 09:06 | XR ---
Left humerus HISTORY: Trauma and pain 2 views of the left humerus Correlation to left forearm same date Arthropathy suspected in the left shoulder. Alignment is maintained. Soft tissue foci of increased at tenuation may represent dermal calcifications, foreign body not excluded. Calcifications near the pro ximal humerus could be related to calcific tendinitis, osteochondromatosis. IMPRESSION: No fracture or dislocation, additional findings above.
== END 2017-01-17 09:28 | disposition home or self-care (01) ==
LOC: EC 07:55
DX: M25.512 Pain in left shoulder (principal); M54.12 Radiculopathy, cervical region; E11.9 Type 2 diabetes mellitus without complications; I10 Essential (primary) hypertension; G40.909 Epilepsy, unspecified, not intractable, without status epilepticus; Z86.718 Personal history of other venous thrombosis and embolism; Z88.0 Allergy status to penicillin; Z88.2 Allergy status to sulfonamides; Z88.5 Allergy status to narcotic agent; Z91.040 Latex allergy status; Z91.048 Other nonmedicinal substance allergy status; Z79.84 Long term (current) use of oral hypoglycemic drugs; Z79.899 Other long term (current) drug therapy; V00.811A Fall from moving wheelchair (powered), initial encounter
CPT/HCPCS: 99283

== ENCOUNTER 2017-04-18 19:58 | Emergency (ER) | payer OTHER ==
[2017-04-18 20:27] VITALS: BP 109/55; PULSE 109; RESP 20; TEMP 98
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
--- NOTE | 2017-04-18 20:55 | XR ---
EXAMINATION TYPE: XR Hip Complete LT DATE OF EXAM: 04/18/2017 COMPARISON: 08/25/2012 HISTORY: Hip pain TECHNIQUE: 2 views FINDINGS: I see no fracture nor dislocation. Hip joint space is fairly well-maintained. IMPRESSION: Negative left hip exam. No change.
--- NOTE | 2017-04-18 20:57 | XR ---
EXAMINATION TYPE: XR shoulder complete LT DATE OF EXAM: 04/18/2017 COMPARISON: 01/13/2017 HISTORY: Shoulder pain TECHNIQUE: 3 views FINDINGS: I see no fracture nor dislocation. There is spurring at the glenohumeral joint. There is ca lcification at the greater tuberosity. I see no focal bone destruction. IMPRESSION: Osteoarthritic changes. Calcific tendinitis. No change..
[2017-04-18] MEDS ORDERED: CYCLOBENZAPRINE 10 MG TAB PO STA (21:01)
== END 2017-04-18 21:18 | disposition home or self-care (01) ==
LOC: EC 19:58
DX: S40.012A Contusion of left shoulder, initial encounter (principal); S70.02XA Contusion of left hip, initial encounter; J45.909 Unspecified asthma, uncomplicated; E11.9 Type 2 diabetes mellitus without complications; M79.7 Fibromyalgia; K21.9 Gastro-esophageal reflux disease without esophagitis; I10 Essential (primary) hypertension; M19.90 Unspecified osteoarthritis, unspecified site; G40.909 Epilepsy, unspecified, not intractable, without status epilepticus; Z79.84 Long term (current) use of oral hypoglycemic drugs; Z79.899 Other long term (current) drug therapy; Z88.0 Allergy status to penicillin; Z88.2 Allergy status to sulfonamides; Z88.5 Allergy status to narcotic agent; Z91.040 Latex allergy status; Z91.09 Other allergy status, other than to drugs and biological substances; W19.XXXA Unspecified fall, initial encounter
CPT/HCPCS: 73502; 99283

== ENCOUNTER → 2017-04-21 | Outpatient (CLI) | payer OTHER ==
[2017-04-21 13:04] LABS: CH 30.1; HDW 2.67; HGB 14.1 gm/dL (11.4-16.0); MCH 30.9 pg (25.0-35.0); MCHC 32.7 g/dL (31.0-37.0); MCV 94.3 fL (80.0-100.0); Mean Platelet Volume 7.4; RBC 4.56 m/uL (3.80-5.40); WBC 11.2 k/uL (3.8-10.6); WBC (Perox) 11.46
[2017-04-21 13:27] LABS: Calcium 9.9 mg/dL (8.4-10.2); Magnesium 1.6 mg/dL (1.6-2.3); Phosphorous 4.2 mg/dL (2.5-4.5); Potassium 4.4 mmol/L (3.5-5.1); Uric Acid 9.6 mg/dL (3.7-7.4)
[2017-04-21 13:33] LABS: Appearance,Urine Cloudy (Clear); Bacteria,Urine Few /hpf; Bilirubin,Urine Negative (Negative); Glucose,Urine (UA) 4+ (Negative); Ketones,Urine Negative (Negative); Leukocyte Esterase,Urine Small (Negative); Mucus,Urine Rare /hpf; Nitrite,Urine Negative (Negative); Particle Count 18057; Protein,Urine Trace (Negative); Squamous Epithelial Cell,Urine 20 /hpf (0-4); UA Billing (MACRO vs. MICRO) MICRO; Urobilinogen,Urine <2.0 mg/dL (<2.0); WBC,Urine 6 /hpf (0-5)
[2017-04-21 13:36] LABS: % Iron Saturation 32.5 % (20-50)
[2017-04-21 14:39] LABS: Add Differential Manual Differential
[2017-04-21 14:41] LABS: Nucleated Red Blood Cells 0 /100 WBC (0-0); Total Cells Counted 100
[2017-04-21 17:33] LABS: Hemoglobin A1C 14.5 % (4.2-6.1)
== END | disposition home or self-care (01) ==
LOC: LABWHC1 12:37
PROVIDERS: ATTEND Nurse Practitioner Family
DX: E11.9 Type 2 diabetes mellitus without complications (principal); N17.9 Acute kidney failure, unspecified; N39.0 Urinary tract infection, site not specified; E55.9 Vitamin D deficiency, unspecified
CPT/HCPCS: 36415; 80048; 81001; 82306; 82728; 83036; 83540; 83550; 83735; 83970; 84100; 84550; 85025

== ENCOUNTER 2017-06-09 19:37 | Emergency (ER) | payer OTHER ==
[2017-06-09 19:48] VITALS: BP 110/67; PULSE 96; RESP 16; TEMP 97.6
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
== END 2017-06-09 20:28 | disposition home or self-care (01) ==
LOC: EC 19:37
DX: G89.29 Other chronic pain (principal); M25.512 Pain in left shoulder; E11.9 Type 2 diabetes mellitus without complications; M79.7 Fibromyalgia; I10 Essential (primary) hypertension; M19.90 Unspecified osteoarthritis, unspecified site; G40.909 Epilepsy, unspecified, not intractable, without status epilepticus; E66.01 Morbid (severe) obesity due to excess calories; Z68.38 Body mass index [BMI] 38.0-38.9, adult; Z79.4 Long term (current) use of insulin; Z79.891 Long term (current) use of opiate analgesic; Z79.899 Other long term (current) drug therapy; Z88.6 Allergy status to analgesic agent; Z88.5 Allergy status to narcotic agent; Z91.040 Latex allergy status; Z88.0 Allergy status to penicillin; Z88.2 Allergy status to sulfonamides; Z91.048 Other nonmedicinal substance allergy status
CPT/HCPCS: 99283

== ENCOUNTER → 2017-06-28 | Outpatient (CLI) | payer OTHER | END | disposition home or self-care (01) | LOC: LABWHC1 12:02 | PROVIDERS: ATTEND Family Medicine | DX: G40.909 Epilepsy, unspecified, not intractable, without status epilepticus (principal) | CPT/HCPCS: 36415; 80177 ==

== ENCOUNTER 2017-08-31 19:31 | Emergency (ER) | payer OTHER ==
[2017-08-31 19:43] VITALS: BP 115/62; PULSE 100; RESP 18; TEMP 96.7
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
[2017-08-31] MEDS ORDERED: KETOROLAC 60 MG/2 ML VIAL IM STA (20:20)
--- NOTE | 2017-08-31 20:29 | XR ---
PROCEDURE: XR cervical spine comp - 5V DATE AND TIME: 08/31/2017 8:11 PM REFERRING PHYSICIAN: Sera Parker CLINICAL INDICATION: PHH, Pain; radiates to left arm. TECHNIQUE: Department protocol. COMPARISON: 11/21/2016 FINDINGS: There is no fracture or malalignment. The soft tissues are unremarkable. IMPRESSION: NO ACUTE PROCESS.
== END 2017-08-31 20:45 | disposition home or self-care (01) ==
LOC: EC 19:31
DX: M79.602 Pain in left arm (principal); E11.9 Type 2 diabetes mellitus without complications; M79.7 Fibromyalgia; K21.9 Gastro-esophageal reflux disease without esophagitis; I10 Essential (primary) hypertension; M19.90 Unspecified osteoarthritis, unspecified site; G40.909 Epilepsy, unspecified, not intractable, without status epilepticus; Z86.718 Personal history of other venous thrombosis and embolism; E66.01 Morbid (severe) obesity due to excess calories; Z68.43 Body mass index [BMI] 50.0-59.9, adult; Z79.4 Long term (current) use of insulin; Z79.891 Long term (current) use of opiate analgesic; Z79.899 Other long term (current) drug therapy; Z88.0 Allergy status to penicillin; Z88.2 Allergy status to sulfonamides; Z88.5 Allergy status to narcotic agent; Z88.8 Allergy status to other drugs, medicaments and biological substances; Z91.048 Other nonmedicinal substance allergy status
CPT/HCPCS: 72050; 99283; 96372; J1885

== ENCOUNTER → 2017-09-12 | Outpatient (CLI) | payer OTHER | END | disposition home or self-care (01) | LOC: RADMRIMAIN 17:26 | PROVIDERS: ATTEND Anesthesiology Pain Medicine | DX: M54.5 Low back pain (principal); M54.2 Cervicalgia | CPT/HCPCS: 82565; 84520 ==

== ENCOUNTER 2017-12-28 21:33 | Emergency (ER) | payer OTHER ==
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
[2017-12-28 23:03] LABS: Basophils # (A) 0.1 k/uL (0-0.2); Basophils % (A) 1 %; Eosinophils # (A) 0.6 k/uL (0-0.7); Eosinophils % (A) 10 %; Lymphocytes % (A) 33 %; MCH 29.3 pg (25.0-35.0); MCHC 32.2 g/dL (31.0-37.0); MCV 90.8 fL (80.0-100.0); Mean Platelet Volume 6.9; Monocytes # (A) 0.3 k/uL (0-1.0); Monocytes % (A) 5 %; Neutrophils % (A) 49 %; Platelet Count 292 k/uL (150-450); RBC 3.74 m/uL (3.80-5.40); RDW 13.9 % (11.5-15.5); WBC 6.2 k/uL (3.8-10.6)
[2017-12-28] MEDS ORDERED: KETOROLAC 30 MG/ML 1 ML VIAL IVP STA (23:11)
--- NOTE | 2017-12-28 23:11 | XR ---
EXAMINATION TYPE: XR chest 2V DATE OF EXAM: 12/28/2017 COMPARISON: 02/05/2015 HISTORY: Cough TECHNIQUE: Frontal and lateral views of the chest are obtained. FINDINGS: Heart and mediastinum are normal. Lungs are clear. Diaphragm is normal. There is widening of the AC joint space on the right side. IMPRESSION: Normal chest. There is widening of AC joint space on the right side that is a change com pared to old exam..
[2017-12-28 23:12] LABS: Calcium 9.5 mg/dL (8.4-10.2); Magnesium 1.6 mg/dL (1.6-2.3); Potassium 4.8 mmol/L (3.5-5.1); Total Bilirubin 0.3 mg/dL (0.2-1.3); Total Protein 6.9 g/dL (6.3-8.2)
[2017-12-28 23:19] LABS: Prothrombin Time 9.9 sec (9.0-12.0)
[2017-12-28 23:20] LABS: Partial Thromboplastin Time 20.8 sec (22.0-30.0)
--- NOTE | 2017-12-28 23:23 | XR ---
EXAMINATION TYPE: XR foot complete RT DATE OF EXAM: 12/28/2017 COMPARISON: NONE HISTORY: Pain TECHNIQUE: 3 views FINDINGS: There is soft tissue swelling of the forefoot. Metatarsals are intact. I see no fracture no r dislocation. There is a single screw in the anterior talus. There is a small plantar calcaneal spur . There is deformity of fifth metatarsal consistent with old fracture. IMPRESSION: Soft tissue swelling. No acute bony abnormality.
[2017-12-28 23:39] LABS: Creatine Kinase MB 2.2 ng/mL (0.0-2.4)
--- NOTE | 2017-12-29 00:43 | US ---
EXAM: US Duplex Bilateral Lower Extremity Veins CLINICAL HISTORY: Pain Comparison study 11/22/16. TECHNIQUE: Real-time duplex ultrasound scan of the bilateral lower extremity veins integrating B-mode two-dimensional vascular structure, Doppler spectral analysis, color flow Doppler imaging and compression. COMPARISON: No relevant prior studies available. FINDINGS: Somewhat limited exam due to body habitus. No evidence of deep venous thrombosis in the visualized portion of the right lower extremity.. IMPRESSION: No evidence of deep venous thrombosis stemless left and right lower extremity. No change when compared to prior study
[2017-12-29 01:31] VITALS: BP 154/79; PULSE 84; RESP 18; TEMP 97.4
== END 2017-12-29 01:32 | disposition home or self-care (01) ==
LOC: EC 21:33
DX: S90.31XA Contusion of right foot, initial encounter (principal); R60.9 Edema, unspecified; J45.909 Unspecified asthma, uncomplicated; E11.9 Type 2 diabetes mellitus without complications; G40.909 Epilepsy, unspecified, not intractable, without status epilepticus; M79.7 Fibromyalgia; M19.90 Unspecified osteoarthritis, unspecified site; E66.01 Morbid (severe) obesity due to excess calories; Z79.1 Long term (current) use of non-steroidal anti-inflammatories (NSAID); Z79.4 Long term (current) use of insulin; Z79.891 Long term (current) use of opiate analgesic; Z79.899 Other long term (current) drug therapy; Z88.0 Allergy status to penicillin; Z88.1 Allergy status to other antibiotic agents; Z88.5 Allergy status to narcotic agent; Z88.8 Allergy status to other drugs, medicaments and biological substances; Z91.040 Latex allergy status; Z91.09 Other allergy status, other than to drugs and biological substances; Z98.890 Other specified postprocedural states; Z68.42 Body mass index [BMI] 45.0-49.9, adult; W20.8XXA Other cause of strike by thrown, projected or falling object, initial encounter
CPT/HCPCS: 36415; 83880; 80053; 82550; 82553; 83735; 85025; 85610; 85730; 73630; 71046; 93970; 99284; 96374; J1885

== ENCOUNTER 2018-02-04 22:09 | Emergency (ER) | payer OTHER ==
[2018-02-04 22:18] VITALS: BP 105/72; PULSE 92; RESP 16; TEMP 97.7
[2018-02-04] MEDS ORDERED: MORPHINE SULFATE 2 MG/ML SYRINGE IM STA (22:33)
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
== END 2018-02-04 23:00 | disposition home or self-care (01) ==
LOC: EC 22:09
DX: G89.29 Other chronic pain (principal); M54.5 Low back pain; E11.9 Type 2 diabetes mellitus without complications; M79.7 Fibromyalgia; I10 Essential (primary) hypertension; M19.90 Unspecified osteoarthritis, unspecified site; G40.909 Epilepsy, unspecified, not intractable, without status epilepticus; Z86.69 Personal history of other diseases of the nervous system and sense organs; Z86.718 Personal history of other venous thrombosis and embolism; Z88.0 Allergy status to penicillin; Z88.1 Allergy status to other antibiotic agents; Z88.2 Allergy status to sulfonamides; Z88.5 Allergy status to narcotic agent; Z91.040 Latex allergy status; Z91.048 Other nonmedicinal substance allergy status; Z79.1 Long term (current) use of non-steroidal anti-inflammatories (NSAID); Z79.4 Long term (current) use of insulin; Z79.84 Long term (current) use of oral hypoglycemic drugs; Z79.891 Long term (current) use of opiate analgesic; Z79.899 Other long term (current) drug therapy
CPT/HCPCS: 99283; 96372; J2270

== ENCOUNTER → 2018-02-14 | Outpatient (CLI) | payer OTHER ==
--- NOTE | 2018-02-15 13:54 | MM ---
Reason for exam: screening (asymptomatic). Last mammogram was performed 1 year and 4 months ago. History: Patient is postmenopausal. Family history of breast cancer in mother at age 60. Cancelled Right US Needle Biopsy of the right breast, April 03, 2007. Physical Findings: A clinical breast exam by your physician is recommended on an annual basis and results should be correlated with mammographic findings. MG Screening Mammo w CAD Bilateral CC and MLO view(s) were taken. Prior study comparison: October 08, 2016, bilateral MG screening mammo w CAD. July 09, 2015, bilateral MG screening mammo w CAD. There are scattered fibroglandular densities. Finding: There are typically benign vascular, round, linear calcifications in both breasts. There is no discrete abnormality. ASSESSMENT: Benign, BI-RAD 2 RECOMMENDATION: Routine screening mammogram of both breasts in 1 year.
== END | disposition home or self-care (01) ==
LOC: RADMAMWWP 09:41
PROVIDERS: ATTEND Family Medicine
DX: Z12.31 Encounter for screening mammogram for malignant neoplasm of breast (principal)
CPT/HCPCS: 77067

== ENCOUNTER → 2018-03-06 | Outpatient (CLI) | payer OTHER ==
[2018-03-06 17:51] LABS: Albumin 3.8 g/dL (3.5-5.0); Bilirubin, Delta 0.3 mg/dL (0.0-0.2); Total Bilirubin 0.3 mg/dL (0.2-1.3); Total Protein 6.7 g/dL (6.3-8.2)
== END | disposition home or self-care (01) ==
LOC: LABWHC1 17:11
PROVIDERS: ATTEND Physician Assistant
DX: Z51.81 Encounter for therapeutic drug level monitoring (principal); Z79.891 Long term (current) use of opiate analgesic
CPT/HCPCS: 36415; 80076

== ENCOUNTER → 2018-03-16 | Outpatient (CLI) | payer OTHER ==
[2018-03-16 07:46] LABS: HCT 34.9 % (34.0-46.0); HGB 10.7 gm/dL (11.4-16.0); Hypochromasia Slight; MCH 29.2 pg (25.0-35.0); MCHC 30.6 g/dL (31.0-37.0); MCV 95.3 fL (80.0-100.0); Mean Platelet Volume 7.1; Platelet Count 301 k/uL (150-450); RBC 3.66 m/uL (3.80-5.40); RDW 15.2 % (11.5-15.5); WBC 6.6 k/uL (3.8-10.6)
[2018-03-16 08:13] LABS: Appearance,Urine Clear (Clear); Bilirubin,Urine Negative (Negative); Blood,Urine Negative (Negative); Color,Urine Yellow; Glucose,Urine (UA) Negative (Negative); Hyaline Casts,Urine 4 /lpf (0-2); Ketones,Urine Negative (Negative); Leukocyte Esterase,Urine Moderate (Negative); Mucus,Urine Rare /hpf; Nitrite,Urine Negative (Negative); PH, Urine 5.5 (5.0-8.0); Protein,Urine Negative (Negative); RBC,Urine <1 /hpf (0-5); Specific Gravity,Urine 1.019 (1.001-1.035); Squamous Epithelial Cell,Urine 5 /hpf (0-4); Urobilinogen,Urine <2.0 mg/dL (<2.0); WBC,Urine 7 /hpf (0-5)
[2018-03-16 10:13] LABS: Calcium 8.9 mg/dL (8.4-10.2); Magnesium 1.7 mg/dL (1.6-2.3); Phosphorus 4.7 mg/dL (2.5-4.5); Potassium 4.2 mmol/L (3.5-5.1); Uric Acid 7.6 mg/dL (3.7-7.4)
[2018-03-16 10:28] LABS: T4, Free (Free Thyroxine) 0.71 ng/dL (0.78-2.19)
[2018-03-16 11:19] LABS: Parathyroid Hormone Intact 16.9 pg/mL (14.0-72.0)
[2018-03-16 11:54] LABS: Vitamin D 25 Hydroxy 42.4 ng/mL (30.0-100.0)
[2018-03-16 15:01] LABS: Iron Saturation 18.93 (12.00-45.00)
== END | disposition home or self-care (01) ==
LOC: LABWHC1 07:15
PROVIDERS: ATTEND Psychiatry & Neurology Neurology
DX: E83.39 Other disorders of phosphorus metabolism (principal); N18.3 Chronic kidney disease, stage 3 (moderate); D63.1 Anemia in chronic kidney disease; N39.0 Urinary tract infection, site not specified; E11.22 Type 2 diabetes mellitus with diabetic chronic kidney disease; E83.42 Hypomagnesemia; R56.9 Unspecified convulsions; R41.3 Other amnesia; M10.9 Gout, unspecified
CPT/HCPCS: 36415; 80048; 80177; 81001; 82306; 82607; 82728; 83036; 83540; 83550; 83735; 83970; 84100; 84439; 84443; 84481; 84550; 85027

== ENCOUNTER → 2018-04-13 | Outpatient (CLI) | payer OTHER ==
--- NOTE | 2018-04-14 08:35 | XR ---
Left shoulder HISTORY: Left shoulder pain 3 views of the left shoulder correlated prior exam 04/18/2017 Calcifications superimposed over the scapula may be due to synovial osteochondromatosis. Additional c alcification is noted along the humeral head as on prior, there is joint space loss at the glenohumer al joint and marginal spurring compatible with osteoarthritic change, acromioclavicular joint arthrop athy also present. Some sclerosis suspected humeral head on the internal rotated exam. IMPRESSION: Osteoarthritic changes, additional findings above, there may be calcific tendinitis, MRI may be of benefit.
== END | disposition home or self-care (01) ==
LOC: RADXRMAIN 16:16
PROVIDERS: ATTEND Physician Assistant
DX: M19.012 Primary osteoarthritis, left shoulder (principal); R93.7 Abnormal findings on diagnostic imaging of other parts of musculoskeletal system

== ENCOUNTER → 2018-06-26 | Outpatient (CLI) | payer OTHER ==
--- NOTE | 2018-06-26 16:33 | XR ---
Left shoulder HISTORY: Pain 3 views of the left shoulder correlated to prior exam 04/13/2018 There is no significant interval change. Small ossific densities may be indicative of synovial osteoc hondromatosis, there is arthropathy with joint space loss, marginal spurring. Alignment and bone mine ralization are maintained. Left lung apex as visualized is normal. Distal acromion is downturned. Sma ll focal densities within the skin may be related to small foreign bodies or possibly calcified inclu jovanny cyst. IMPRESSION: Osteoarthritis. 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 Additional fi ndings above. Findings are similar to prior exam.
== END | disposition home or self-care (01) ==
LOC: RADXRMAIN 13:39
PROVIDERS: ATTEND Physician Assistant
DX: M19.012 Primary osteoarthritis, left shoulder (principal)

== ENCOUNTER → 2018-07-17 | Outpatient (CLI) | payer OTHER ==
[2018-07-17 13:44] LABS: HCT 35.9 % (34.0-46.0); HGB 11.1 gm/dL (11.4-16.0); MCH 29.3 pg (25.0-35.0); MCV 94.5 fL (80.0-100.0); Mean Platelet Volume 7.2; Platelet Count 297 k/uL (150-450); RDW 14.2 % (11.5-15.5); WBC 10.1 k/uL (3.8-10.6)
[2018-07-17 13:50] LABS: Appearance,Urine Cloudy (Clear); Bacteria,Urine Occasional /hpf; Bilirubin,Urine Negative (Negative); Blood,Urine Negative (Negative); Color,Urine Yellow; Glucose,Urine (UA) Negative (Negative); Hyaline Casts,Urine 3 /lpf (0-2); Ketones,Urine Negative (Negative); Leukocyte Esterase,Urine Moderate (Negative); Mucus,Urine Rare /hpf; Nitrite,Urine Positive (Negative); Protein,Urine Negative (Negative); RBC,Urine 2 /hpf (0-5); Specific Gravity,Urine 1.014 (1.001-1.035); Squamous Epithelial Cell,Urine 4 /hpf (0-4); Urobilinogen,Urine <2.0 mg/dL (<2.0); WBC,Urine 14 /hpf (0-5)
[2018-07-17 17:51] LABS: Parathyroid Hormone Intact 40.3 pg/mL (14.0-72.0)
[2018-07-17 17:55] LABS: Iron Saturation 19.48 (12.00-45.00)
[2018-07-17 17:56] LABS: Anion Gap 8.4 mmol/L (4.00-12.00); Calcium 9.1 mg/dL (8.7-10.3); Carbon Dioxide 24.6 mmol/L (21.6-31.8); Magnesium 1.4 mg/dL (1.5-2.4); Phosphorus 5.7 mg/dL (2.4-5.1); Potassium 4.4 mmol/L (3.5-5.5); Uric Acid 6.9 mg/dL (2.9-7.7)
[2018-07-17 18:03] LABS: Vitamin D 25 Hydroxy 40.8 ng/mL (30.0-100.0)
== END | disposition home or self-care (01) ==
LOC: LABWHC1 13:16
PROVIDERS: ATTEND Nurse Practitioner Family
DX: E11.22 Type 2 diabetes mellitus with diabetic chronic kidney disease (principal); N18.3 Chronic kidney disease, stage 3 (moderate); E55.9 Vitamin D deficiency, unspecified; E79.0 Hyperuricemia without signs of inflammatory arthritis and tophaceous disease; D63.1 Anemia in chronic kidney disease; N39.0 Urinary tract infection, site not specified
CPT/HCPCS: 36415; 80048; 81001; 82306; 82728; 83540; 83550; 83735; 83970; 84100; 84550; 85027

== ENCOUNTER → 2018-11-24 | Outpatient (CLI) | payer OTHER ==
[2018-11-24 17:32] LABS: Basophils # (A) 0.1 k/uL (0-0.2); Basophils % (A) 1 %; Eosinophils # (A) 0.6 k/uL (0-0.7); Eosinophils % (A) 10 %; HGB 12.7 gm/dL (11.4-16.0); Lymphocytes # (A) 2.2 k/uL (1.0-4.8); Lymphocytes % (A) 36 %; MCH 29.8 pg (25.0-35.0); MCHC 31.8 g/dL (31.0-37.0); MCV 93.5 fL (80.0-100.0); Mean Platelet Volume 9.4; Monocytes # (A) 0.3 k/uL (0-1.0); Monocytes % (A) 5 %; Neutrophils # (A) 2.9 k/uL (1.3-7.7); Neutrophils % (A) 46 %; Platelet Count 279 k/uL (150-450); RBC 4.28 m/uL (3.80-5.40); RDW 15.1 % (11.5-15.5); WBC 6.3 k/uL (3.8-10.6)
[2018-11-24 17:40] LABS: Magnesium 1.4 mg/dL (1.6-2.3); Phosphorus 5.5 mg/dL (2.5-4.5); Potassium 4.7 mmol/L (3.5-5.1); Uric Acid 7.4 mg/dL (3.7-7.4)
[2018-11-24 23:27] LABS: Parathyroid Hormone Intact 17.7 pg/mL (14.0-72.0)
[2018-11-24 23:41] LABS: Iron Saturation 25.68 (12.00-45.00)
[2018-11-24 23:51] LABS: Vitamin D 25 Hydroxy 41.4 ng/mL (30.0-100.0)
== END | disposition home or self-care (01) ==
LOC: LAB 16:46
PROVIDERS: ATTEND Physician Assistant
DX: I12.9 Hypertensive chronic kidney disease with stage 1 through stage 4 chronic kidney disease, or unspecified chronic kidney disease (principal); N18.9 Chronic kidney disease, unspecified
CPT/HCPCS: 80048; 82306; 82728; 83540; 83550; 83735; 83970; 84100; 84550; 85025

== ENCOUNTER → 2018-12-27 | Outpatient (CLI) | payer OTHER ==
[2018-12-27 12:44] LABS: HCT 38.3 % (34.0-46.0); HGB 12.5 gm/dL (11.4-16.0); MCH 31.8 pg (25.0-35.0); MCHC 32.7 g/dL (31.0-37.0); MCV 97.3 fL (80.0-100.0); Mean Platelet Volume 7.7; Platelet Count 247 k/uL (150-450); RBC 3.94 m/uL (3.80-5.40); RDW 14.7 % (11.5-15.5); WBC 8.4 k/uL (3.8-10.6)
[2018-12-27 19:59] LABS: Iron Saturation 20.98 (12.00-45.00)
== END | disposition home or self-care (01) ==
LOC: LABWHC1 11:43
PROVIDERS: ATTEND Internal Medicine
DX: D64.9 Anemia, unspecified (principal)
CPT/HCPCS: 36415; 82728; 83540; 83550; 85027

== ENCOUNTER 2019-03-22 14:05 | Emergency (ER) | payer OTHER ==
[2019-03-22 14:17] VITALS: RESP 18
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
--- NOTE | 2019-03-22 15:53 | CT ---
EXAMINATION TYPE: CT brain wo con DATE OF EXAM: 03/22/2019 COMPARISON: 01/13/2017 HISTORY: Pain. CT DLP: 1142.4 mGycm Automated exposure control for dose reduction was used. FINDINGS: Exam is limited by artifact. Evaluation for subtle hemorrhage limited. No obvious acute intracranial hemorrhage or mass effect. Large osteoma involving the right frontal parietal calvarium is stable. So ft tissue ossification and thickening posteriorly appears chronic partially empty sella turcica. Cere bellar tonsils low-lying in position. IMPRESSION: 1. LIMITED EXAM DUE TO ARTIFACT DEMONSTRATES NO DEFINITE ACUTE INTRACRANIAL HEMORRHAGE OR MASS EFFECT . 2. 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 PARTIALLY EMPTY SELLA TURCICA WITH LOW-LYING CEREBELLAR TONSILS. FOLLOW-UP MRI RECOMMENDED TO EXCL UDE CHIARI MALFORMATION
--- NOTE | 2019-03-22 16:05 | XR ---
Right hand HISTORY: Pain 3 views of the right hand Bone mineralization, joint spaces and alignment are maintained. No fracture or dislocation. IMPRESSION: Normal right hand.
--- NOTE | 2019-03-22 16:08 | XR ---
Right elbow HISTORY: Pain 3 views of the right elbow correlated to prior right elbow dated 09/17/2015 Bone mineralization, joint spaces and alignment are stable. No fracture or dislocation. No evident maddy int effusion. IMPRESSION: No acute abnormality
--- NOTE | 2019-03-22 16:10 | XR ---
Lumbar spine HISTORY: Pain 3 views of the lumbar spine correlated to prior exam 01/13/2017 Surgical clips are noted in the right upper quadrant. There is mild spinal curvature convex left cent ered at L3. Postop changes are noted at L5, there are laminectomies, paraspinal bone graft material, there is intervertebral spacing block at L5-S1. Anterolisthesis grade 1 L5-S1, retrolisthesis grade 1 L4-5 as on prior exam. Sclerosis in the posterior elements compatible with facet arthropathy. Lumbar vertebral bodies show preserved height. Bone mineralization is maintained. IMPRESSION: Postop changes. Facet arthropathy. Spinal curvature could be positional.
--- NOTE | 2019-03-22 16:12 | XR ---
Right shoulder HISTORY: Trauma and pain 3 views of the right shoulder Acromioclavicular joint arthropathy is present. Bone mineralization is maintained. There is marginal spurring at the glenohumeral joint with subchondral sclerosis. IMPRESSION: Osteoarthritis. No fracture or dislocation..
[2019-03-22 16:52] VITALS: BP 141/79; PULSE 70; TEMP 97.8
== END 2019-03-22 16:51 | disposition home or self-care (01) ==
LOC: EC 14:05
DX: S09.90XA Unspecified injury of head, initial encounter (principal); R40.2142 Coma scale, eyes open, spontaneous, at arrival to emergency department; R40.2252 Coma scale, best verbal response, oriented, at arrival to emergency department; R40.2362 Coma scale, best motor response, obeys commands, at arrival to emergency department; J45.909 Unspecified asthma, uncomplicated; M79.7 Fibromyalgia; I10 Essential (primary) hypertension; M19.90 Unspecified osteoarthritis, unspecified site; G40.909 Epilepsy, unspecified, not intractable, without status epilepticus; E66.01 Morbid (severe) obesity due to excess calories; Z68.43 Body mass index [BMI] 50.0-59.9, adult; Z79.4 Long term (current) use of insulin; Z79.891 Long term (current) use of opiate analgesic; Z79.1 Long term (current) use of non-steroidal anti-inflammatories (NSAID); Z79.899 Other long term (current) drug therapy; Z88.6 Allergy status to analgesic agent; Z88.5 Allergy status to narcotic agent; Z91.040 Latex allergy status; Z88.0 Allergy status to penicillin; Z88.2 Allergy status to sulfonamides; Z91.048 Other nonmedicinal substance allergy status; V03.99XA Pedestrian with other conveyance injured in collision with car, pick-up truck or van, unspecified whether traffic or nontraffic accident, initial encounter; Y92.410 Unspecified street and highway as the place of occurrence of the external cause
CPT/HCPCS: 70450; 72100; 99284

== ENCOUNTER → 2019-05-02 | Outpatient (CLI) | payer OTHER ==
--- NOTE | 2019-05-03 08:22 | XR ---
Bilateral shoulders HISTORY: Pain 3 views of each shoulder are submitted on a total of 7 images. Correlation to prior exam 03/22/2019 right shoulder, left shoulder 06/26/2018 There is been interval resection of the distal right clavicle. Alignment, bone mineralization is main tained bilaterally. Arthropathy present in the left shoulder with marginal spurring and joint space l oss, remodeling. Hypertrophic change present at the left acromioclavicular joint. No fracture or disl ocation. Lung apices are unremarkable as seen. IMPRESSION: Arthropathy left shoulder. Postop change right shoulder.
== END | disposition home or self-care (01) ==
LOC: RADXRMAIN 15:41
PROVIDERS: ATTEND Physician Assistant
DX: M19.012 Primary osteoarthritis, left shoulder (principal); Z98.890 Other specified postprocedural states

== ENCOUNTER → 2019-05-30 | Outpatient (CLI) | payer OTHER ==
--- NOTE | 2019-06-01 11:11 | MM ---
Reason for exam: screening (asymptomatic). Last mammogram was performed 1 year and 3 months ago. History: Patient is postmenopausal. Family history of breast cancer in mother at age 60. Cancelled Right US Needle Biopsy of the right breast, April 03, 2007. Physical Findings: A clinical breast exam by your physician is recommended on an annual basis and results should be correlated with mammographic findings. MG Screening Mammo w CAD Bilateral CC, MLO, and CV view(s) were taken. XCCL view(s) were taken of the right breast. Prior study comparison: February 14, 2018, bilateral MG screening mammo w CAD. October 08, 2016, bilateral MG screening mammo w CAD. There are scattered fibroglandular densities. Benign vascular, secretory, oil cyst and punctate calcifications are present bilaterally. Prominent skin fold on the right. No significant changes when compared with prior studies. ASSESSMENT: Benign, BI-RAD 2 RECOMMENDATION: Routine screening mammogram of both breasts in 1 year.
== END ==
LOC: RADMAMWWP 16:22
PROVIDERS: ATTEND Internal Medicine
DX: Z12.31 Encounter for screening mammogram for malignant neoplasm of breast (principal); Z78.0 Asymptomatic menopausal state; Z80.3 Family history of malignant neoplasm of breast
CPT/HCPCS: 77067

== ENCOUNTER → 2019-09-25 | Outpatient (CLI) | payer OTHER ==
[2019-09-25 12:22] LABS: Basophils # (A) 0.1 k/uL (0-0.2); Basophils % (A) 2 %; Eosinophils # (A) 0.7 k/uL (0-0.7); Eosinophils % (A) 10 %; HCT 41.6 % (34.0-46.0); HGB 12.8 gm/dL (11.4-16.0); Lymphocytes # (A) 2.9 k/uL (1.0-4.8); Lymphocytes % (A) 40 %; MCH 30.4 pg (25.0-35.0); MCHC 30.7 g/dL (31.0-37.0); MCV 98.8 fL (80.0-100.0); Mean Platelet Volume 7.6; Monocytes # (A) 0.4 k/uL (0-1.0); Monocytes % (A) 5 %; Neutrophils % (A) 41 %; Platelet Count 304 k/uL (150-450); RBC 4.21 m/uL (3.80-5.40); RDW 13.3 % (11.5-15.5); WBC 7.2 k/uL (3.8-10.6)
[2019-09-25 12:56] LABS: Appearance,Urine Cloudy (Clear); Color,Urine Light Yellow; Glucose,Urine (UA) Negative (Negative); Ketones,Urine Negative (Negative); Protein,Urine Negative (Negative); Specific Gravity,Urine 1.012 (1.001-1.035)
[2019-09-25 12:57] LABS: Bacteria,Urine Many /hpf; Bilirubin,Urine Negative (Negative); Blood,Urine Negative (Negative); Leukocyte Esterase,Urine Moderate (Negative); Mucus,Urine Rare /hpf; Nitrite,Urine Positive (Negative); RBC,Urine 1 /hpf (0-5); Squamous Epithelial Cell,Urine 6 /hpf (0-4); Urobilinogen,Urine <2.0 mg/dL (<2.0); WBC,Urine 16 /hpf (0-5)
[2019-09-25 13:17] LABS: Protein/Creatinine Ratio,Urine 0.173
[2019-09-25 19:21] LABS: % Iron Saturation 31.25 (12.00-45.00); African American GFR (CKD) 53.9 (60.0-200.0); Albumin 4.2 g/dL (3.80-4.90); Albumin/Globulin Ratio 1.91 (1.60-3.17); Anion Gap 8.3 mmol/L (4.00-12.00); BUN/Creat Ratio 31.54 Ratio (12.00-20.00); Calcium 9.1 mg/dL (8.7-10.3); Carbon Dioxide 27.7 mmol/L (21.6-31.8); Chol/HDL Ratio 3.22; Globulin 2.2 g/dL (1.6-3.3); LDL Cholesterol,Calculated 75.6 mg/dL (0.0-131.0); Magnesium 1.6 mg/dL (1.5-2.4); Non-African American GFR(CKD) 46.5 (60.0-200.0); Phosphorus 4.1 mg/dL (2.4-5.1); Potassium 4.6 mmol/L (3.5-5.5); Total Bilirubin 0.3 mg/dL (0.3-1.2); Total Protein 6.4 g/dL (6.2-8.2); VLDL Calculation 26.4 mg/dL (5.00-40.00)
[2019-09-25 19:22] LABS: Microalbumin Creatinine Ratio <30 mg/g Creat (0-30); Urine Creatinine 57.8 mg/dL
== END | disposition home or self-care (01) ==
LOC: LABWHC1 11:27
PROVIDERS: ATTEND Physician Assistant
DX: I12.9 Hypertensive chronic kidney disease with stage 1 through stage 4 chronic kidney disease, or unspecified chronic kidney disease (principal); E11.22 Type 2 diabetes mellitus with diabetic chronic kidney disease; N18.3 Chronic kidney disease, stage 3 (moderate); D63.1 Anemia in chronic kidney disease; E55.9 Vitamin D deficiency, unspecified; E21.3 Hyperparathyroidism, unspecified; M10.9 Gout, unspecified; N39.0 Urinary tract infection, site not specified; R79.89 Other specified abnormal findings of blood chemistry
CPT/HCPCS: 36415; 80053; 80061; 81001; 82043; 82306; 82570; 82728; 83036; 83540; 83550; 83735; 83970; 84100; 84156; 84550; 85025

== ENCOUNTER 2019-11-12 16:15 | Emergency (ER) | payer OTHER ==
[2019-11-12 16:20] VITALS: RESP 18; TEMP 97.7
[2019-11-12] MEDS ORDERED: LIDOCAINE 1% INJ 10MG/ML (20 ML MDV) SQ ONE (16:31)
[2019-11-12] MEDS ORDERED: HYDROcodone/APAP 5-325MG 1 EACH TAB PO STA (16:31)
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
[2019-11-12] MEDS ORDERED: ONDANSETRON 4 MG TAB PO STA (16:57)
--- NOTE | 2019-11-12 17:15 | CT ---
EXAMINATION TYPE: CT facial bones wo con DATE OF EXAM: 11/12/2019 COMPARISON: CT brain March 22, 2019 HISTORY: Fall, right maxillary pain and swelling. CT DLP: 1245.4 mGycm. Automated Exposure Control for Dose Reduction was Utilized. TECHNIQUE: CT scan of the facial bones are performed without contrast, axial images are obtained, cor onal reformatted images are also reviewed. FINDINGS: Mandible is intact. Temporomandibular joints are maintained bilaterally. Nasal bones are in tact. Zygomatic arches are intact. Orbital floors and thomas are intact. Globes are intact bilaterally . Intraconal fat is preserved. Pterygoid plates are intact. Small subcutaneous soft tissue hematoma over the right zygoma and maxilla axial image 41. Minimal muc osal thickening involving the right maxillary sinus otherwise paranasal sinuses are clear. Persistent anterior metopic suture redemonstrated. Stable old void bony density adjacent to right frontal rita rium axial image 105 without bony destruction possible large osteoma. IMPRESSION: No acute displaced facial bone fracture. Small subcutaneous hematoma right maxilla.
[2019-11-12 18:34] VITALS: BP 114/67; PULSE 79
== END 2019-11-12 18:34 | disposition home or self-care (01) ==
LOC: EC 16:15
DX: S01.411A Laceration without foreign body of right cheek and temporomandibular area, initial encounter (principal); S01.111A Laceration without foreign body of right eyelid and periocular area, initial encounter; E11.9 Type 2 diabetes mellitus without complications; J45.909 Unspecified asthma, uncomplicated; M79.7 Fibromyalgia; I10 Essential (primary) hypertension; M19.90 Unspecified osteoarthritis, unspecified site; G40.909 Epilepsy, unspecified, not intractable, without status epilepticus; G89.29 Other chronic pain; Z88.0 Allergy status to penicillin; Z88.2 Allergy status to sulfonamides; Z88.5 Allergy status to narcotic agent; Z91.040 Latex allergy status; Z91.048 Other nonmedicinal substance allergy status; Z79.1 Long term (current) use of non-steroidal anti-inflammatories (NSAID); Z79.4 Long term (current) use of insulin; Z79.891 Long term (current) use of opiate analgesic; Z79.899 Other long term (current) drug therapy; Z86.69 Personal history of other diseases of the nervous system and sense organs; Z96.698 Presence of other orthopedic joint implants; Z83.3 Family history of diabetes mellitus; V27.4XXA Motorcycle driver injured in collision with fixed or stationary object in traffic accident, initial encounter; Y93.89 Activity, other specified; Y92.410 Unspecified street and highway as the place of occurrence of the external cause
CPT/HCPCS: 70486; 99283; 12015; J2001

== ENCOUNTER → 2019-12-21 | Outpatient (CLI) | payer OTHER ==
[2019-12-21 16:20] LABS: African American GFR (CKD) 53.9 (60.0-200.0); Albumin/Globulin Ratio 1.6 (1.60-3.17); Anion Gap 10.6 mmol/L (4.00-12.00); BUN/Creat Ratio 26.92 Ratio (12.00-20.00); Calcium 9.1 mg/dL (8.7-10.3); Carbon Dioxide 26.4 mmol/L (21.6-31.8); Globulin 2.5 g/dL (1.6-3.3); Non-African American GFR(CKD) 46.5 (60.0-200.0); Potassium 4.8 mmol/L (3.5-5.5); Total Bilirubin 0.2 mg/dL (0.2-1.2); Total Protein 6.5 g/dL (6.2-8.2)
== END | disposition home or self-care (01) ==
LOC: LABWHC1 09:48
PROVIDERS: ATTEND Internal Medicine
DX: R79.89 Other specified abnormal findings of blood chemistry (principal); R74.8 Abnormal levels of other serum enzymes
CPT/HCPCS: 36415; 80053; 84439; 84443

== ENCOUNTER 2020-01-16 15:28 | Emergency (ER) | payer OTHER ==
[2020-01-16 16:03] VITALS: RESP 18
[2020-01-16 16:46] LABS: Basophils # (A) 0.1 k/uL (0-0.2); Basophils % (A) 1 %; Eosinophils # (A) 0.4 k/uL (0-0.7); Eosinophils % (A) 5 %; HCT 41.4 % (34.0-46.0); HGB 13.1 gm/dL (11.4-16.0); Lymphocytes # (A) 2.5 k/uL (1.0-4.8); Lymphocytes % (A) 34 %; MCH 30.5 pg (25.0-35.0); MCHC 31.7 g/dL (31.0-37.0); Mean Platelet Volume 7.9; Monocytes # (A) 0.5 k/uL (0-1.0); Monocytes % (A) 7 %; Neutrophils # (A) 3.9 k/uL (1.3-7.7); Neutrophils % (A) 52 %; Platelet Count 288 k/uL (150-450); RBC 4.31 m/uL (3.80-5.40); RDW 12.7 % (11.5-15.5); WBC 7.5 k/uL (3.8-10.6)
[2020-01-16 16:58] LABS: Albumin 4.4 g/dL (3.5-5.0); Calcium 10.4 mg/dL (8.4-10.2); Potassium 4.4 mmol/L (3.5-5.1); Total Bilirubin 0.4 mg/dL (0.2-1.3); Total Protein 7.7 g/dL (6.3-8.2)
[2020-01-16] MEDS ORDERED: SODIUM CHLORIDE 0.9% 500 ML 500 ML IV ONE (17:01)
[2020-01-16 18:11] LABS: Hepatitis A Antibody IgM NEGATIVE
[2020-01-16 19:18] LABS: Partial Thromboplastin Time 21.7 sec (22.0-30.0)
--- NOTE | 2020-01-16 19:48 | US ---
EXAMINATION TYPE: US abdomen limited DATE OF EXAM: 01/16/2020 COMPARISON: CT abdomen October 15, 2015 CLINICAL HISTORY: alk phos increase, sent by PCP. Alk phos increase. Sent by PCP. Hx cholecystectomy. EXAM MEASUREMENTS: Liver Length: 20.42 cm Gallbladder Wall: Cholecystectomy. CBD: 1.10 cm Right Kidney: 9.9 x 5.4 x 4.7 cm Limited due to large body habitus and gas. Pancreas: Complex/heterogenous area seen measuring 1.5 x 1.7 x 1.4 cm. Limited visibility. Liver: Appears enlarged and to have an increased echogenicity. Gallbladder: Cholecystectomy. Evidence for sonographic Valente's sign: No CBD: Perhaps minimally dilated. Right Kidney: No hydronephrosis or masses seen Visualized liver is heterogeneously hyperechoic. Persistent hepatomegaly. Gallbladder surgically abse nt. IMPRESSION: Fatty infiltration of liver redemonstrated. Common bile duct is minimally dilated near po rta hepatis slightly more prominent from 2016 CT. Cannot exclude lesion near the pancreatic head with visualized pancreatic ductal dilatation. Consider correlation with contrast-enhanced CT abdomen and/ or ERCP/MRCP study.
--- NOTE | 2020-01-16 20:38 | CT ---
EXAMINATION TYPE: CT abdomen pelvis wo con DATE OF EXAM: 01/16/2020 COMPARISON: 10/15/2015 HISTORY: Ductal abnormality. CT DLP: 2506.4 mGycm Automated exposure control for dose reduction was used. Images were obtained from the diaphragm to the floor the pelvis with no contrast. Lung bases are clear. There is no pleural effusion. Heart size is fairly normal. There is no pericard ial effusion. There are clips from cholecystectomy. Liver spleen stomach pancreas appear normal. Bile ducts are not dilated. There is no adrenal mass.: Bile duct measures 10 mm. Intrahepatic bile ducts appear normal. The kidneys have normal size and contour. There is no hydronephrosis. Ureters are not dilated. There is umbilical hernia that contains fat. Bladder distends smoothly. There is no pelvic mass. Ther e is hysterectomy. There is no inguinal hernia. There is no mesenteric edema. There is no ascites or free air. There is no sign of a bowel obstructio n. Appendix appears normal. There is narrowing of L5-S1 disc space. There is no lumbar compression fracture. There is L5 spondylo lysis with a 5 mm 5 S1 spondylolisthesis. There is disc prosthesis at L5-S1. The bony pelvis appears intact. Exam limited slightly by motion. There is 2.3 cm skin thickening at the umbilicus. There is s ubcutaneous edema and fluid over the lower lumbar spine probably postsurgical changes. Unchanged IMPRESSION: Cholecystectomy. No dilated ducts. Common bile duct however is increased slightly compared to old CT scan. Intrahepatic bile ducts appear normal. Normal appendix. Rounded low density mass in the subcutaneous fat at the umbilicus not significantly different than ol d CT scan of 10/20/2011 and could be a complicated lipoma.
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
[2020-01-16 21:57] VITALS: BP 133/80; PULSE 80; TEMP 98.3
[2020-01-17 00:11] LABS: Hepatitis B Core IgM Non-Reactive (Non-Reactive); Hepatitis B Surface Antigen Non-Reactive (Non-Reactive); Hepatitis C IgG Antibody Non-Reactive (Non-Reactive)
== END 2020-01-16 21:57 | disposition home or self-care (01) ==
LOC: EC 15:28
DX: R74.8 Abnormal levels of other serum enzymes (principal); K83.8 Other specified diseases of biliary tract; J45.909 Unspecified asthma, uncomplicated; E11.9 Type 2 diabetes mellitus without complications; M79.7 Fibromyalgia; E66.01 Morbid (severe) obesity due to excess calories; G40.909 Epilepsy, unspecified, not intractable, without status epilepticus; G89.29 Other chronic pain; I10 Essential (primary) hypertension; G47.00 Insomnia, unspecified; G43.909 Migraine, unspecified, not intractable, without status migrainosus; M19.90 Unspecified osteoarthritis, unspecified site; Z79.1 Long term (current) use of non-steroidal anti-inflammatories (NSAID); Z79.51 Long term (current) use of inhaled steroids; Z79.4 Long term (current) use of insulin; Z79.891 Long term (current) use of opiate analgesic; Z79.899 Other long term (current) drug therapy; Z90.49 Acquired absence of other specified parts of digestive tract; Z91.040 Latex allergy status; Z88.0 Allergy status to penicillin; Z88.2 Allergy status to sulfonamides; Z88.1 Allergy status to other antibiotic agents; Z88.8 Allergy status to other drugs, medicaments and biological substances; Z86.718 Personal history of other venous thrombosis and embolism; Z68.43 Body mass index [BMI] 50.0-59.9, adult
CPT/HCPCS: 36415; 74176; 76705; 80053; 80074; 83690; 85025; 85610; 85730; 96360; 99284

== ENCOUNTER → 2020-02-01 | Outpatient (CLI) | payer OTHER ==
[2020-02-01 09:17] LABS: HCT 38.8 % (34.0-46.0); HGB 12.2 gm/dL (11.4-16.0); MCH 30.6 pg (25.0-35.0); MCHC 31.3 g/dL (31.0-37.0); MCV 97.7 fL (80.0-100.0); Mean Platelet Volume 7.5; Platelet Count 259 k/uL (150-450); RBC 3.98 m/uL (3.80-5.40); RDW 12.9 % (11.5-15.5); WBC 7.9 k/uL (3.8-10.6)
[2020-02-01 09:25] LABS: Prothrombin Time 10.7 sec (9.0-12.0)
[2020-02-01 16:28] LABS: Protein, Total 6.7 g/dL (6.2-8.2)
[2020-02-01 16:35] LABS: Ferritin 66.2 ng/mL (10.0-291.0)
[2020-02-01 16:49] LABS: % Iron Saturation 18.32 (12.00-45.00); ALT 42 U/L (8-44); AST 30 U/L (13-35); Albumin/Globulin Ratio 1.75 (1.60-3.17); Alkaline Phosphatase 148 U/L (41-126); Bilirubin, Conjugated <0.20 mg/dL (0.20-0.40); Globulin 2.4 g/dL (1.6-3.3); Iron 50 ug/dL (50-170); Total Bilirubin 0.3 mg/dL (0.2-1.2); Total Iron Binding Capacity 273 ug/dL (228-460); Total Protein 6.6 g/dL (6.2-8.2)
[2020-02-05 10:06] LABS: Albumin 3.72 g/dL (3.80-4.90); Gamma Globulin 1.01 g/dL (0.70-1.50)
== END | disposition home or self-care (01) ==
LOC: LABWHC1 08:47
PROVIDERS: ATTEND Physician Assistant
DX: R74.8 Abnormal levels of other serum enzymes (principal)
CPT/HCPCS: 36415; 80076; 82103; 82390; 82728; 83516; 83540; 83550; 84165; 85027; 85610; 86038

== ENCOUNTER 2020-04-02 08:41 | Day surgery (SDC) | payer OTHER ==
[2020-04-02 10:41] LABS: Mean Platelet Volume 8.4; Platelet Count 237 k/uL (150-450)
[2020-04-02 10:55] LABS: Prothrombin Time 10.3 sec (9.0-12.0)
--- NOTE | 2020-04-02 10:55 | US ---
EXAMINATION TYPE: US guide vascular access DATE OF EXAM: 04/02/2020 COMPARISON: None HISTORY: Need for intravenous access for same day biopsy procedure. Obesity. RIM TECHNICIAN: Dr. Heide Bridges D.O. FINDINGS: Informed vertebral consent obtained. Maximal barrier technique was utilized. A superficial right forearm vein was localized with ultrasound and noted to be compressible and patent by ultrasou nd. The overlying skin was prepped. Sterile technique utilized with the ultrasound machine. A 22-gau ge IV was gained to the vein under direct ultrasound guidance. Good flash of blood was demonstrated, and IV sheath was advanced under direct ultrasound guidance. Good venous return was demonstrated, and IV was secured in place. The patient remained in stable condition. IMPRESSION: Status post ultrasound-guided right forearm IV placement. The IV will be removed by radio logy nursing after completion of biopsy, prior to procedure discharged today.
[2020-04-02] MEDS ORDERED: HYDROcodone/APAP 5-325MG 1 EACH TAB PO PRN (11:09)
[2020-04-02 13:03] VITALS: TEMP 97.8
[2020-04-02] MEDS ORDERED: HYDROmorphone 0.5 MG/0.5 ML SYRINGE IVP PRN (13:24)
--- NOTE | 2020-04-02 16:30 | US ---
EXAMINATION TYPE: US biopsy liver DATE OF EXAM: 04/02/2020 HISTORY: Elevated liver function tests. PROCEDURE: The procedure was discussed with the patient. The risks, complications, benefits, and alternatives we re discussed and any questions were answered. Informed consent was obtained. The patient was placed s upine on the ultrasound table. Maximal barrier technique was utilized. The skin overlying a suitable path to the liver was localize d using ultrasound, the skin was prepped and draped. Ultrasound was utilized with sterile technique. Lidocaine was used for local anesthesia. A skin kush made with a scalpel. Under direct ultrasound guidance, an 18-gauge needle was advanced into the right lobe of the liver and 2 core biopsy specimen s were obtained. Hemostasis was achieved and bandage applied. Postprocedure ultrasound imaging demonstrates no evidence of significant hemorrhage. There was no imm ediate complication and patient remained in stable condition. Specimen submitted in formalin to Path ology. IMPRESSION: Status post ultrasound-guided liver parenchymal 18-gauge core biopsy. Pathology pending.
[2020-04-02 16:58] VITALS: RESP 16
[2020-04-02 17:00] VITALS: BP 132/67; PULSE 87
--- NOTE | 2020-04-02 17:20 | P.OP ---
Date of Procedure: 04/02/20 Preoperative Diagnosis: abnormal liver function testing Procedure(s) Performed: ultrasound guided liver biopsy Anesthesia: local Surgeon: Heide Bridges Estimated Blood Loss (ml): 1 Pathology: other (histopathology) Condition: stable Disposition: same day
== END 2020-04-02 16:39 | disposition home or self-care (01) ==
LOC: RADPROMAIN 08:41
PROVIDERS: ATTEND Physician Assistant
DX: K75.81 Nonalcoholic steatohepatitis (NASH) (principal); K83.1 Obstruction of bile duct; E66.9 Obesity, unspecified; Z68.41 Body mass index [BMI] 40.0-44.9, adult
CPT/HCPCS: 36410; 76937; 85049; 85610; 88313; 88307; 47000; J1170; 76942

== ENCOUNTER → 2020-06-10 | Outpatient (CLI) | payer OTHER ==
[2020-06-10 20:28] LABS: Albumin 4.2 g/dL (3.80-4.90); Albumin/Globulin Ratio 1.56 (1.60-3.17); Bilirubin, Conjugated 0.2 mg/dL (0.20-0.40); Bilirubin,Unconjugated 0.2 mg/dL; Globulin 2.7 g/dL (1.6-3.3); Total Bilirubin 0.4 mg/dL (0.2-1.2); Total Protein 6.9 g/dL (6.2-8.2)
== END | disposition home or self-care (01) ==
LOC: LABWHC1 12:49
PROVIDERS: ATTEND Physician Assistant
DX: R74.8 Abnormal levels of other serum enzymes (principal)
CPT/HCPCS: 36415; 80076; 83516

== ENCOUNTER 2020-06-23 07:03 | Day surgery (SDC) | payer OTHER ==
[2020-06-19 18:08] VITALS: BMI 51.9
[~2020-06-23 07:03] MED LIST: LACTATED RINGERS 1,000 ML IV SCH; LIDOCAINE 1% (10MG/ML) FOR IV START INTRADERMA PRN
[2020-06-23 07:25] VITALS: RESP 18; TEMP 97.8
[2020-06-23 07:26] LABS: Glucose,Whole Blood 241 mg/dL (75-99)
[2020-06-23] MEDS ORDERED: LACTATED RINGERS 1,000 ML IV ONE (07:26)
[2020-06-23] MEDS ORDERED: fentaNYL (PF) 50 MCG/ML 2 ML AMP ONE (08:08)
[2020-06-23] MEDS ORDERED: LIDOCAINE 1% INJ 10MG/ML (20 ML MDV) ONE (08:08)
[2020-06-23] MEDS ORDERED: PROPOFOL 10 MG/ML 20 ML VIAL IV ONE (08:08)
--- NOTE | 2020-06-23 08:44 | P.PCN ---
Date of Procedure: 06/23/20 Description of Procedure: BRIEF HISTORY: Patient is a 55-year-old female presenting to the hospital for outpatient colonoscopy for evaluation of personal history of colon polyps. No change in bowel habits or blood per rectum. PROCEDURE PERFORMED: Colonoscopy. PREOPERATIVE DIAGNOSIS: Personal history of colon polyps, last colonoscopy 5 years ago. ESTIMATED BLOOD LOSS: Minimal. IV sedation per Anesthesia. PROCEDURE: After informed consent was obtained, the patient, was brought into the endoscopy unit. IV sedation was administered by Anesthesia under continuous monitoring. Digital rectal examination was normal. Initially the Olympus CF-190 flexible video colonoscope was then inserted in the rectum, gradually advanced into the cecum without any difficulty. Careful examination was performed as the scope was gradually being withdrawn. Ileocecal valve and the appendiceal orifice were visualized and appeared normal. Prep was excellent. Mucosa of the cecum, ascending colon, transverse colon, descending colon, sigmoid colon, and rectum appeared normal. Retroflexion was performed in the rectum and no lesions were seen, low-grade internal hemorrhoids seen. The patient tolerated the procedure well. IMPRESSION: Normal-appearing colon from rectum to cecum. Internal hemorrhoids. RECOMMENDATIONS: Findings of this examination were discussed with the patient her friend. Okay to resume diet. Okay to resume medication. Repeat colonoscopy in 10 years for screening for malignant neoplasm of colon or sooner if signs or symptoms which warrant further evaluation developed.
[2020-06-23 08:58] LABS: Glucose,Whole Blood 231 mg/dL (75-99)
[2020-06-23 09:17] VITALS: BP 132/90; PULSE 77
== END 2020-06-23 09:22 | disposition home or self-care (01) ==
LOC: ORWHC2ENDO 07:03
PROVIDERS: ATTEND Internal Medicine
DX: Z12.11 Encounter for screening for malignant neoplasm of colon (principal); K64.8 Other hemorrhoids; Z86.010 Personal history of colon polyps; E11.9 Type 2 diabetes mellitus without complications; I10 Essential (primary) hypertension; J45.909 Unspecified asthma, uncomplicated; M79.7 Fibromyalgia; R56.9 Unspecified convulsions; E66.01 Morbid (severe) obesity due to excess calories; K21.9 Gastro-esophageal reflux disease without esophagitis; Z91.040 Latex allergy status; Z88.0 Allergy status to penicillin; Z88.2 Allergy status to sulfonamides; Z88.5 Allergy status to narcotic agent; Z91.09 Other allergy status, other than to drugs and biological substances; Z79.899 Other long term (current) drug therapy; Z79.891 Long term (current) use of opiate analgesic; Z79.4 Long term (current) use of insulin; Z90.49 Acquired absence of other specified parts of digestive tract; Z90.710 Acquired absence of both cervix and uterus; Z98.49 Cataract extraction status, unspecified eye; Z98.890 Other specified postprocedural states; Z86.718 Personal history of other venous thrombosis and embolism; Z68.43 Body mass index [BMI] 50.0-59.9, adult
CPT/HCPCS: G0105; J2001; J3010; J2704

== ENCOUNTER → 2020-07-07 | Outpatient (CLI) | payer OTHER ==
[2020-07-08 13:46] LABS: Serum Amphetamine Negative; Serum Barbiturates Negative; Serum Benzodiazepine Negative; Serum Cocaine Negative; Serum Methadone Negative; Serum Opiates Positive; Serum Phencyclidine Negative; Serum Propoxyphene Negative; Serum THC (Cannabis) Negative
== END | disposition home or self-care (01) ==
LOC: LABWHC1 08:17
PROVIDERS: ATTEND Physician Assistant
DX: Z51.81 Encounter for therapeutic drug level monitoring (principal); Z79.891 Long term (current) use of opiate analgesic
CPT/HCPCS: 36415; 80307

== ENCOUNTER → 2020-09-22 | Outpatient (CLI) | payer OTHER ==
[2020-09-22 20:29] LABS: ALT 21 U/L (8-44); AST 18 U/L (13-35); African American GFR (CKD) 48.9 (60.0-200.0); Albumin/Globulin Ratio 1.88 (1.60-3.17); Alkaline Phosphatase 115 U/L (41-126); BUN/Creat Ratio 27.14 Ratio (12.00-20.00); Bilirubin, Conjugated <0.20 mg/dL (0.20-0.40); Calcium 9.9 mg/dL (8.7-10.3); Carbon Dioxide 29.6 mmol/L (21.6-31.8); Chloride 99 mmol/L (96-109); Globulin 2.4 g/dL (1.6-3.3); Glucose 372 mg/dL (70-110); Iron 108 ug/dL (50-170); Magnesium 1.7 mg/dL (1.5-2.4); Non-African American GFR(CKD) 42.2 (60.0-200.0); Phosphorus 4.1 mg/dL (2.4-5.1); Potassium 4.6 mmol/L (3.5-5.5); Sodium 138 mmol/L (135-145); Total Bilirubin 0.4 mg/dL (0.2-1.2); Total Iron Binding Capacity 282 ug/dL (228-460); Total Protein 6.9 g/dL (6.2-8.2); Uric Acid 5.9 mg/dL (2.9-7.7)
[2020-09-22 20:35] LABS: Ferritin 98.6 ng/mL (10.0-291.0)
[2020-09-22 20:40] LABS: Basophils # (A) 0.09 X 10*3/uL (0.00-0.10); Basophils % (A) 1.2 %; Eosinophils # (A) 0.51 X 10*3/uL (0.04-0.35); Eosinophils % (A) 6.6 %; HGB 13.9 g/dL (12.0-15.0); Lymphocytes % (A) 36.5 %; MCH 30.5 pg (27.0-32.0); MCHC 31.6 g/dL (32.0-37.0); MCV 96.5 fL (80.0-97.0); Mean Platelet Volume 11.2 fL (9.5-12.2); Monocytes # (A) 0.58 X 10*3/uL (0.20-1.00); Monocytes % (A) 7.6 %; Neutrophils # (A) 3.66 X 10*3/uL (1.80-7.70); Neutrophils % (A) 47.7 %; Platelet Count 322 X 10*3/uL (140-440); RBC 4.56 X 10*6/uL (4.10-5.20); RDW 12.6 % (11.5-14.5); WBC 7.67 X 10*3/uL (4.50-10.00)
== END | disposition home or self-care (01) ==
LOC: LABWHC1 12:30
PROVIDERS: ATTEND Family Medicine
DX: E11.65 Type 2 diabetes mellitus with hyperglycemia (principal); R74.8 Abnormal levels of other serum enzymes; E79.0 Hyperuricemia without signs of inflammatory arthritis and tophaceous disease; N18.30 Chronic kidney disease, stage 3 unspecified; E55.9 Vitamin D deficiency, unspecified; N39.0 Urinary tract infection, site not specified; D63.1 Anemia in chronic kidney disease
CPT/HCPCS: 36415; 80053; 82248; 82306; 82728; 83036; 83516; 83540; 83550; 83735; 83970; 84100; 84550; 85025

== ENCOUNTER → 2020-10-24 | Outpatient (CLI) | payer OTHER ==
--- NOTE | 2020-10-28 10:25 | MM ---
Reason for exam: screening (asymptomatic). Last mammogram was performed 1 year and 5 months ago. History: Patient is postmenopausal. Family history of breast cancer in mother at age 60. Cancelled Right US Needle Biopsy of the right breast, April 03, 2007. Physical Findings: A clinical breast exam by your physician is recommended on an annual basis and results should be correlated with mammographic findings. MG Screening Mammo w CAD Bilateral CC and MLO view(s) were taken. Prior study comparison: May 30, 2019, bilateral MG screening mammo w CAD. February 14, 2018, bilateral MG screening mammo w CAD. There are scattered fibroglandular densities. There is chronic nodularity in the left breast. Benign vascular and oil cyst calcifications. No significant changes when compared with prior studies. ASSESSMENT: Benign, BI-RAD 2 RECOMMENDATION: Routine screening mammogram of both breasts in 1 year.
== END ==
LOC: RADMAMWWP 15:07
PROVIDERS: ATTEND Internal Medicine
DX: Z12.31 Encounter for screening mammogram for malignant neoplasm of breast (principal); Z78.0 Asymptomatic menopausal state; Z80.3 Family history of malignant neoplasm of breast
CPT/HCPCS: 77067

== ENCOUNTER → 2021-02-03 | Outpatient (CLI) | payer OTHER ==
--- NOTE | 2021-02-03 15:28 | XR ---
EXAMINATION TYPE: XR ankle complete LT DATE OF EXAM: 02/03/2021 COMPARISON: NONE HISTORY: Pain FINDINGS: Three views of the ankle demonstrate the ankle mortise to be intact and symmetric. The joint spaces are preserved. The osseous structures are intact. Soft tissue calcifications are noted. Calcaneal s pur noted. IMPRESSION: 1. No definite acute fracture or dislocation, if symptoms persist follow-up study in 7 to 10 days wou ld be suggested.
--- NOTE | 2021-02-03 15:30 | XR ---
EXAMINATION TYPE: XR foot complete LT DATE OF EXAM: 02/03/2021 COMPARISON: NONE HISTORY: Pain TECHNIQUE: Three views are submitted. FINDINGS: Is a subtle deformity involving the head of the first metatarsal.. Arthropathy of the first MTP. Calc aneal spur noted. Soft tissue edema and calcification seen.. IMPRESSION: 1. Findings compatible with a minimally displaced fracture involving the head of the first metatarsal ..
== END | disposition home or self-care (01) ==
LOC: RADXRMAIN 14:52
PROVIDERS: ATTEND Internal Medicine
DX: M25.572 Pain in left ankle and joints of left foot (principal); M79.672 Pain in left foot

== ENCOUNTER 2021-02-22 13:45 | Emergency (ER) | payer OTHER ==
[2021-02-22 14:16] VITALS: BP 116/82; PULSE 75; RESP 20; TEMP 98.2
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
[2021-02-22] MEDS ORDERED: HYDROmorphone 1 MG/ML 1 ML SYRINGE IM STA (14:38)
--- NOTE | 2021-02-22 14:45 | XR ---
EXAMINATION TYPE: XR ankle complete LT DATE OF EXAM: 02/22/2021 COMPARISON: 05/25/2016 HISTORY: Pain TECHNIQUE: 3 views FINDINGS: There is soft tissue swelling around the ankle. There is oblique nondisplaced fracture dist al fibula. There is plantar calcaneal spurring. Ankle mortise is anatomic. IMPRESSION: Acute oblique fracture of the distal fibula. Soft tissue swelling.
--- NOTE | 2021-02-22 14:46 | XR ---
EXAMINATION TYPE: XR foot complete LT DATE OF EXAM: 02/22/2021 COMPARISON: 05/25/2016 HISTORY: Pain and swelling TECHNIQUE: 3 views FINDINGS: There is diffuse soft tissue swelling of the forefoot. There is nondisplaced oblique fractu re of the distal fibula. Metatarsals appear intact. There is plantar calcaneal spurring. The toes corina ear intact. IMPRESSION: Soft tissue swelling. Acute fracture distal fibula. Calcaneal spurring.
== END 2021-02-22 15:25 | disposition home or self-care (01) ==
LOC: EC 13:45
DX: S82.832A Other fracture of upper and lower end of left fibula, initial encounter for closed fracture (principal); J45.909 Unspecified asthma, uncomplicated; E11.9 Type 2 diabetes mellitus without complications; M79.7 Fibromyalgia; K21.9 Gastro-esophageal reflux disease without esophagitis; I10 Essential (primary) hypertension; M19.90 Unspecified osteoarthritis, unspecified site; E66.01 Morbid (severe) obesity due to excess calories; Z90.49 Acquired absence of other specified parts of digestive tract; Z90.710 Acquired absence of both cervix and uterus; Z86.718 Personal history of other venous thrombosis and embolism; Z79.4 Long term (current) use of insulin
CPT/HCPCS: 73610; 73630; 99283; 96372; 29515; J1170

== ENCOUNTER 2021-03-18 13:50 | Emergency (ER) | payer OTHER ==
[2021-03-18] MEDS ORDERED: LIDOCAINE 5% PATCH TOPICAL STA (15:22)
[2021-03-18] MEDS ORDERED: MORPHINE SULFATE 4 MG/ML SYRINGE IV STA (15:22)
[2021-03-18] MEDS ORDERED: ASPIRIN 81 MG PO STA (15:22)
--- NOTE | 2021-03-18 16:02 | XR ---
EXAMINATION TYPE: XR chest 2V DATE OF EXAM: 03/18/2021 COMPARISON: 12/28/2017 HISTORY: Shortness of breath TECHNIQUE: Frontal and lateral views of the chest are obtained. FINDINGS: Scattered senescent parenchymal changes noted. Hyperinflation compatible with COPD. Right lower lobe atelectasis and infiltrate. Heart size is stable. Mediastinal structures are stable and grossly unremarkable. No evidence for hilar prominence. Degenerative changes dorsal spine. IMPRESSION: 1. Right lower lobe atelectasis and infiltrate.
[2021-03-18 16:30] LABS: Basophils # (A) 0.1 k/uL (0-0.2); Basophils % (A) 1 %; Eosinophils # (A) 0.2 k/uL (0-0.7); Eosinophils % (A) 2 %; HCT 43.1 % (34.0-46.0); Lymphocytes # (A) 2.1 k/uL (1.0-4.8); Lymphocytes % (A) 24 %; MCH 30.6 pg (25.0-35.0); MCHC 32.5 g/dL (31.0-37.0); MCV 94.2 fL (80.0-100.0); Mean Platelet Volume 7.7; Monocytes # (A) 0.5 k/uL (0-1.0); Monocytes % (A) 6 %; Neutrophils # (A) 5.5 k/uL (1.3-7.7); Neutrophils % (A) 64 %; Platelet Count 328 k/uL (150-450); RBC 4.57 m/uL (3.80-5.40); RDW 13.4 % (11.5-15.5); WBC 8.5 k/uL (3.8-10.6)
[2021-03-18 16:33] LABS: Albumin 4.5 g/dL (3.5-5.0); Calcium 9.9 mg/dL (8.4-10.2); Magnesium 1.4 mg/dL (1.6-2.3); Potassium 4.6 mmol/L (3.5-5.1); Total Bilirubin 0.6 mg/dL (0.2-1.3); Total Protein 7.6 g/dL (6.3-8.2)
[2021-03-18 16:37] LABS: INR 0.9 (<1.2); Prothrombin Time 9.7 sec (9.0-12.0)
[2021-03-18 16:42] LABS: Partial Thromboplastin Time 20.8 sec (22.0-30.0)
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
[2021-03-18] MEDS ORDERED: MORPHINE SULFATE 4 MG/ML SYRINGE IVP STA (17:33)
[2021-03-18 18:05] VITALS: BP 126/82; PULSE 66; RESP 18; TEMP 98.5
== END 2021-03-18 17:45 | disposition home or self-care (01) ==
LOC: EC 13:50
DX: S20.211A Contusion of right front wall of thorax, initial encounter (principal); E11.36 Type 2 diabetes mellitus with diabetic cataract; E66.01 Morbid (severe) obesity due to excess calories; I10 Essential (primary) hypertension; J45.909 Unspecified asthma, uncomplicated; M79.7 Fibromyalgia; Z79.4 Long term (current) use of insulin; Z79.899 Other long term (current) drug therapy; Z88.0 Allergy status to penicillin; Z88.1 Allergy status to other antibiotic agents; Z88.2 Allergy status to sulfonamides; Z91.040 Latex allergy status; Z68.43 Body mass index [BMI] 50.0-59.9, adult; Z88.8 Allergy status to other drugs, medicaments and biological substances; Z91.09 Other allergy status, other than to drugs and biological substances; W21.01XA Struck by football, initial encounter; Y92.89 Other specified places as the place of occurrence of the external cause
CPT/HCPCS: 36415; 93005; 80053; 83735; 84484; 85025; 85610; 85730; 71046; 99285; 96374; 96376; J2270

== ENCOUNTER 2021-04-10 13:45 | Emergency (ER) | payer OTHER ==
[2021-04-10 15:04] LABS: Basophils # (A) 0.1 k/uL (0-0.2); Basophils % (A) 1 %; Eosinophils # (A) 0.4 k/uL (0-0.7); Eosinophils % (A) 5 %; Lymphocytes # (A) 2.5 k/uL (1.0-4.8); Lymphocytes % (A) 31 %; MCH 31.9 pg (25.0-35.0); MCHC 33.4 g/dL (31.0-37.0); MCV 95.6 fL (80.0-100.0); Mean Platelet Volume 9.3; Monocytes # (A) 0.7 k/uL (0-1.0); Monocytes % (A) 8 %; Neutrophils # (A) 4.3 k/uL (1.3-7.7); Neutrophils % (A) 53 %; Platelet Count 306 k/uL (150-450); RBC 4.39 m/uL (3.80-5.40); RDW 13.2 % (11.5-15.5); WBC 8.2 k/uL (3.8-10.6)
[2021-04-10 15:12] LABS: Albumin 4.3 g/dL (3.5-5.0); Calcium 9.5 mg/dL (8.4-10.2); Potassium 4.6 mmol/L (3.5-5.1); Total Bilirubin 0.3 mg/dL (0.2-1.3); Total Protein 7.3 g/dL (6.3-8.2)
[2021-04-10 15:26] LABS: INR 0.9 (<1.2); Partial Thromboplastin Time 22.2 sec (22.0-30.0); Prothrombin Time 9.9 sec (9.0-12.0)
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
[2021-04-10] MEDS ORDERED: MORPHINE SULFATE 2 MG/ML SYRINGE IVP ONE (16:56)
[2021-04-10 18:11] VITALS: BP 109/57
--- NOTE | 2021-04-10 19:20 | CT ---
EXAMINATION TYPE: CT angio chest DATE OF EXAM: 04/10/2021 COMPARISON: None HISTORY: Chest pain and elevated d-dimer. CT DLP: 1032.4 mGycm Automated exposure control for dose reduction was used. CONTRAST: Performed with IV Contrast, patient injected with 65ml mL of Isovue 370. There are 3-D post processed images. The lungs are clear of consolidation. There is no evidence of a pulmonary mass. There is no mediastin al adenopathy. Thoracic aorta is intact. There is no aneurysm or dissection. There is no pleural effu jovanny. There is no pericardial effusion. Heart size is normal. There are no hilar masses. There is normal contrast opacification of the pulmonary arteries. There are no filling defects. Upper abdominal soft tissues are intact. The bony thorax is intact. There is no compression fracture. IMPRESSION: Negative exam. No evidence of pulmonary embolism.
[2021-04-10 19:41] VITALS: PULSE 76; RESP 16; TEMP 97.8
== END 2021-04-10 19:39 | disposition home or self-care (01) ==
LOC: EC 13:45
DX: R07.89 Other chest pain (principal); J45.909 Unspecified asthma, uncomplicated; E11.9 Type 2 diabetes mellitus without complications; I10 Essential (primary) hypertension; E66.01 Morbid (severe) obesity due to excess calories; K21.9 Gastro-esophageal reflux disease without esophagitis; M19.90 Unspecified osteoarthritis, unspecified site; M79.7 Fibromyalgia; Z79.4 Long term (current) use of insulin; Z86.718 Personal history of other venous thrombosis and embolism; Z79.899 Other long term (current) drug therapy; Z88.1 Allergy status to other antibiotic agents; Z88.0 Allergy status to penicillin; Z88.2 Allergy status to sulfonamides; Z88.8 Allergy status to other drugs, medicaments and biological substances; Z91.040 Latex allergy status; Z91.09 Other allergy status, other than to drugs and biological substances; W21.01XA Struck by football, initial encounter
CPT/HCPCS: 36415; 93005; 85379; 80053; 84484; 85025; 85610; 85730; 71046; 71275; 99284; 96374; J2270; Q9967

== ENCOUNTER → 2021-04-14 | Outpatient (CLI) | payer OTHER ==
[2021-04-14 11:17] LABS: Basophils # (A) 0.08 X 10*3/uL (0.00-0.10); Basophils % (A) 1.1 %; Eosinophils # (A) 0.41 X 10*3/uL (0.04-0.35); Eosinophils % (A) 5.5 %; HCT 42.5 % (37.2-46.3); HGB 13.1 g/dL (12.0-15.0); Lymphocytes # (A) 3.93 X 10*3/uL (0.90-5.00); Lymphocytes % (A) 52.5 %; MCHC 30.8 g/dL (32.0-37.0); MCV 97.3 fL (80.0-97.0); Mean Platelet Volume 10.9 fL (9.5-12.2); Monocytes # (A) 0.67 X 10*3/uL (0.20-1.00); Monocytes % (A) 8.9 %; Neutrophils # (A) 2.36 X 10*3/uL (1.80-7.70); Neutrophils % (A) 31.5 %; Platelet Count 269 X 10*3/uL (140-440); RBC 4.37 X 10*6/uL (4.10-5.20); RDW 13.4 % (11.5-14.5); WBC 7.49 X 10*3/uL (4.50-10.00)
[2021-04-14 14:45] LABS: Hemoglobin A1C 9.3 % (4.0-6.0)
[2021-04-14 16:08] LABS: African American GFR (CKD) 41.3 (60.0-200.0); Albumin/Globulin Ratio 1.48 (1.60-3.17); BUN/Creat Ratio 17.5 Ratio (12.00-20.00); Bilirubin, Conjugated 0.2 mg/dL (0.20-0.40); Bilirubin,Unconjugated 0.2 mg/dL; Calcium 9.8 mg/dL (8.7-10.3); Chol/HDL Ratio 2.24; Globulin 2.7 g/dL (1.6-3.3); Non-African American GFR(CKD) 35.7 (60.0-200.0); Potassium 4.1 mmol/L (3.5-5.5); Total Bilirubin 0.4 mg/dL (0.3-1.2); Total Protein 6.7 g/dL (6.2-8.2)
[2021-04-14 23:00] LABS: Urine Creatinine 270.1 mg/dL
[2021-04-15 08:25] LABS: Levetiracetam (Keppra) 34.7 ug/mL (3.0-60.0)
== END | disposition home or self-care (01) ==
LOC: LABWHC1 07:35
PROVIDERS: ATTEND Physician Assistant
DX: G25.81 Restless legs syndrome (principal); I10 Essential (primary) hypertension; E78.2 Mixed hyperlipidemia; R56.9 Unspecified convulsions; R74.8 Abnormal levels of other serum enzymes; E11.65 Type 2 diabetes mellitus with hyperglycemia
CPT/HCPCS: 36415; 80053; 80061; 80177; 82043; 82248; 82306; 82570; 83036; 83516; 84443; 85025

== ENCOUNTER → 2021-06-22 | Outpatient (CLI) | payer OTHER ==
--- NOTE | 2021-06-23 11:10 | XR ---
Number spine HISTORY: M47.812 3 views of lumbar spine correlated prior exam 03/22/2019 History cyst at L5-S1, postoperative changes are similar. Minimal arthrosis is grade 1 L4-5 again not ed. Lumbar vertebral bodies show preserved height, stable bone mineralization. No spinal curvature no angelina on today's exam. Disc spaces are unchanged. Surgical clips again noted in the right upper quadran t. Sclerosis is present in the posterior elements consistent with facet arthropathy, spinal fusion ch anges noted in the paraspinal location. IMPRESSION: Stable postop findings. Facet arthropathy. Alignment is unchanged.
--- NOTE | 2021-06-23 11:12 | XR ---
Cervical spine with flexion and extension views HISTORY: M47.812 8 views of the cervical spine correlated to prior exam 08/31/2017 There is facet arthropathy change present. Foraminal encroachment is present on the right at C3-4 and on the left at C3-4, C4-5, C5-6. There is multilevel spondylosis. Some loss of disc height present a t C3-4, C4-5. Lower cervical spine not well seen on the lateral view due to patient body habitus. Min imal anterolisthesis C4-5 noted on swimmer's view. IMPRESSION: Minimal listhesis is suspected as described, there are degenerative disc changes and face t arthropathy. Exam is limited by patient body habitus.
== END | disposition home or self-care (01) ==
LOC: RADXRMAIN 16:45
PROVIDERS: ATTEND Internal Medicine
DX: M47.816 Spondylosis without myelopathy or radiculopathy, lumbar region (principal); M43.12 Spondylolisthesis, cervical region; M47.812 Spondylosis without myelopathy or radiculopathy, cervical region; Z98.1 Arthrodesis status
CPT/HCPCS: 72052; 72100

== ENCOUNTER → 2021-07-20 | Outpatient (CLI) | payer OTHER ==
[2021-07-20 15:23] LABS: Magnesium 1.7 mg/dL (1.5-2.4); Phosphorus 3.9 mg/dL (2.4-5.1)
[2021-07-20 15:38] LABS: African American GFR (CKD) 42.9 (60.0-200.0); Albumin/Globulin Ratio 1.26 (1.60-3.17); Anion Gap 16.3 mmol/L (10.00-18.00); BUN/Creat Ratio 23.1 Ratio (12.00-20.00); Blood Urea Nitrogen 35.8 mg/dL (9.0-27.0); Calcium 9.3 mg/dL (8.7-10.3); Carbon Dioxide 20.3 mmol/L (20.0-27.5); Globulin 3.2 g/dL (1.6-3.3); Non-African American GFR(CKD) 37.1 (60.0-200.0); Potassium 4.6 mmol/L (3.5-5.5); Total Bilirubin 0.3 mg/dL (0.30-1.20); Total Protein 7.2 g/dL (6.2-8.2)
[2021-07-20 19:38] LABS: Microalbumin Creatinine Ratio <30 mg/g Creat (0-30); Urine Creatinine 61.7 mg/dL (28.0-217.0)
== END | disposition home or self-care (01) ==
LOC: LABWHC1 10:41
PROVIDERS: ATTEND Internal Medicine Nephrology
DX: N17.9 Acute kidney failure, unspecified (principal)
CPT/HCPCS: 36415; 80053; 82043; 82306; 82570; 83735; 83970; 84100

== ENCOUNTER → 2021-11-13 | Outpatient (CLI) | payer OTHER ==
--- NOTE | 2021-11-13 14:21 | MM ---
Reason for exam: screening (asymptomatic). Last mammogram was performed 1 year and 1 month ago. History: Patient is postmenopausal. Family history of breast cancer in mother at age 60. Cancelled Right US Needle Biopsy of the right breast, April 03, 2007. Physical Findings: A clinical breast exam by your physician is recommended on an annual basis and results should be correlated with mammographic findings. MG Screening Mammo w CAD Bilateral CC and MLO view(s) were taken. CV view(s) were taken of the right breast. Prior study comparison: October 24, 2020, bilateral MG screening mammo w CAD. May 30, 2019, bilateral MG screening mammo w CAD. There are scattered fibroglandular densities. There are benign appearing round, linear, vascular calcifications bilaterally. There is no discrete abnormality. ASSESSMENT: Benign, BI-RAD 2 RECOMMENDATION: Routine screening mammogram of both breasts in 1 year.
== END | disposition home or self-care (01) ==
LOC: RADMAMWWP 13:21
PROVIDERS: ATTEND Internal Medicine
DX: Z12.31 Encounter for screening mammogram for malignant neoplasm of breast (principal); Z78.0 Asymptomatic menopausal state; Z80.3 Family history of malignant neoplasm of breast
CPT/HCPCS: 77067

== ENCOUNTER → 2022-01-25 | Outpatient (CLI) | payer OTHER ==
--- NOTE | 2022-01-25 16:09 | XR ---
EXAMINATION TYPE: XR cervical spine comp DATE OF EXAM: 01/25/2022 COMPARISON: 06/22/2021 HISTORY: Pain TECHNIQUE: Four views are submitted. FINDINGS: Exam is limited due to soft tissue overlap. Grossly the odontoid is intact. There are no compression deformities. The prevertebral soft tissue structures are within normal limits. Alignment is only d emonstrated level C6 with multilevel facet arthropathy and hypertrophic changes. Oblique images are l imited for assessment of neural foraminal encroachment. IMPRESSION: 1. Markedly limited exam demonstrating facet arthropathy and multilevel degenerative disc disease. Al ignment is only demonstrated to the level C6. Questionable lucency within the substance of the odonto id could be artifactual or related to soft tissue uptake overlap. Recommend follow-up MRI given limit ation of exam for further evaluation.
--- NOTE | 2022-01-25 16:11 | XR ---
EXAMINATION TYPE: XR shoulder complete BILAT DATE OF EXAM: 01/25/2022 COMPARISON: 05/02/2019 HISTORY: Pain TECHNIQUE: Three views are submitted. FINDINGS: There is marked widening of the right AC joint. No acute fracture or dislocation. Severe arthropathy of the left AC joint. Soft tissue calcifications are noted there is spurring along the lower margin of the humeral head with narrowing of the glenohumeral joint. IMPRESSION: 1. Marked widening of the right AC joint can be associated with ligamentous injury. 2. Left glenohumeral joint arthropathy and spurring with severe AC joint arthropathy. If concern for rotator cuff injury correlate with MRI.
== END | disposition home or self-care (01) ==
LOC: RADXRMAIN 14:38
PROVIDERS: ATTEND Internal Medicine
DX: M47.812 Spondylosis without myelopathy or radiculopathy, cervical region (principal); M50.30 Other cervical disc degeneration, unspecified cervical region; M12.812 Other specific arthropathies, not elsewhere classified, left shoulder; M12.811 Other specific arthropathies, not elsewhere classified, right shoulder; M25.811 Other specified joint disorders, right shoulder
CPT/HCPCS: 72050

== ENCOUNTER → 2022-01-26 | Outpatient (CLI) | payer OTHER ==
[2022-01-26 15:01] LABS: Basophils % (A) 1.3 %; Eosinophils # (A) 0.56 X 10*3/uL (0.04-0.35); Eosinophils % (A) 7.4 %; HCT 45.2 % (37.2-46.3); HGB 14.3 g/dL (12.0-15.0); Immature Grans, Automated 0.4 %; Lymphocytes # (A) 3.14 X 10*3/uL (0.90-5.00); Lymphocytes % (A) 41.6 %; MCH 29.8 pg (27.0-32.0); MCHC 31.6 g/dL (32.0-37.0); MCV 94.2 fL (80.0-97.0); Mean Platelet Volume 11.6 fL (9.5-12.2); Monocytes # (A) 0.46 X 10*3/uL (0.20-1.00); Monocytes % (A) 6.1 %; NRBC Per 100 WBC 0 /100 WBCS (0.0-0.0); Neutrophils # (A) 3.26 X 10*3/uL (1.80-7.70); Neutrophils % (A) 43.2 %; Platelet Count 250 X 10*3/uL (140-440); RDW 12.6 % (11.5-14.5); WBC 7.55 X 10*3/uL (4.50-10.00)
[2022-01-26 15:30] LABS: ALT 19 U/L (8-44); AST 18 U/L (13-35); African American GFR (CKD) 44.7 (60.0-200.0); Albumin 4.1 g/dL (3.8-4.9); Albumin/Globulin Ratio 1.41 (1.60-3.17); Alkaline Phosphatase 105 U/L (41-126); BUN/Creat Ratio 21.07 Ratio (12.00-20.00); Blood Urea Nitrogen 31.6 mg/dL (9.0-27.0); Calcium 9.5 mg/dL (8.7-10.3); Carbon Dioxide 23.1 mmol/L (20.0-27.5); Chloride 100 mmol/L (96-109); Chol/HDL Ratio 3.12 Ratio; Globulin 2.9 g/dL (1.6-3.3); Glucose 228 mg/dL (70-110); LDL Cholesterol,Calculated 63.4 mg/dL (0.0-131.0); Magnesium 1.7 mg/dL (1.5-2.4); Non-African American GFR(CKD) 38.5 (60.0-200.0); Potassium 4.1 mmol/L (3.5-5.5); Sodium 136 mmol/L (135-145)
== END | disposition home or self-care (01) ==
LOC: LABWHC1 07:48
PROVIDERS: ATTEND Internal Medicine
DX: I10 Essential (primary) hypertension (principal); E78.2 Mixed hyperlipidemia; E11.9 Type 2 diabetes mellitus without complications
CPT/HCPCS: 36415; 80053; 80061; 83036; 83735; 84439; 84443; 85025

== ENCOUNTER 2022-05-26 20:23 | Emergency (ER) | payer OTHER ==
[2022-05-26 22:31] VITALS: TEMP 97.9
[2022-05-26] MEDS ORDERED: HYDROmorphone 1 MG/ML 1 ML SYRINGE IM STA (22:43)
[2022-05-26 22:52] VITALS: BP 130/89; PULSE 90; RESP 20
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
--- NOTE | 2022-05-26 23:45 | XR ---
EXAMINATION TYPE: XR lumbar spine 2 or 3V DATE OF EXAM: 05/26/2022 COMPARISON: 06/22/2021 HISTORY: Fall. Back pain TECHNIQUE: 3 views FINDINGS: The lumbar vertebra show a mild first-degree L5-S1 spondylolisthesis. There is disc prosthe sis at L5-S1 with bilateral L5 spondylolysis. No compression fracture. There is osteosclerosis at L5- S1. Sacroiliac joints are intact. IMPRESSION: There is L5 spondylolysis with mild first-degree L5-S1 spondylolisthesis. Osteosclerosis at the L5-S1 disc. No acute bony abnormality. No change compared to old exam.
[2022-05-26] MEDS ORDERED: ORPHENADRINE 30 MG/ML 2 ML VIAL IM STA (23:49)
== END 2022-05-27 00:20 | disposition home or self-care (01) ==
LOC: EC 20:23
DX: M54.50 Low back pain, unspecified (principal); J45.909 Unspecified asthma, uncomplicated; E11.9 Type 2 diabetes mellitus without complications; K21.9 Gastro-esophageal reflux disease without esophagitis; I10 Essential (primary) hypertension; M19.90 Unspecified osteoarthritis, unspecified site; I82.409 Acute embolism and thrombosis of unspecified deep veins of unspecified lower extremity; Z91.040 Latex allergy status; Z88.0 Allergy status to penicillin; Z88.2 Allergy status to sulfonamides; Z88.5 Allergy status to narcotic agent; Z91.048 Other nonmedicinal substance allergy status; Z79.4 Long term (current) use of insulin; Z79.899 Other long term (current) drug therapy
CPT/HCPCS: 72100; 99284; 96372 ×2; J2360; J1170

== ENCOUNTER 2022-08-15 02:32 | Emergency (ER) | payer OTHER ==
[2022-08-15 02:48] VITALS: RESP 16; TEMP 98.6
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
--- NOTE | 2022-08-15 03:38 | XR ---
EXAMINATION TYPE: XR lumbar spine 2 or 3V DATE OF EXAM: 08/15/2022 COMPARISON: 05/26/2022 HISTORY: Back pain TECHNIQUE: 3 view FINDINGS: The lumbar vertebrae have normal alignment. There is disc prosthesis at L5-S1. There is aguilar inectomy of L5. No compression fracture. Sacroiliac joints are intact. IMPRESSION: Lumbar spine surgery. No change compared to old exam. No fracture.
--- NOTE | 2022-08-15 03:41 | CT ---
EXAMINATION TYPE: CT cervical spine wo con DATE OF EXAM: 08/15/2022 COMPARISON: 01/13/2017 HISTORY: fall CT DLP: 766.5 mGycm Automated exposure control for dose reduction was used. Images obtained from the skull base to T1 vertebra without contrast. Cervical vertebra have normal alignment. Posterior elements are intact. Facet joints show multilevel hypertrophic facet arthropathy. Cervical disc spaces are fairly normal. The skull base is intact. IMPRESSION: Mild spondylotic changes in the lower cervical spine. No fracture. No change compared to old exam.
[2022-08-15 04:09] VITALS: BP 148/88; PULSE 90
== END 2022-08-15 04:09 | disposition home or self-care (01) ==
LOC: EC 02:32
DX: S16.1XXA Strain of muscle, fascia and tendon at neck level, initial encounter (principal); S39.012A Strain of muscle, fascia and tendon of lower back, initial encounter; M47.812 Spondylosis without myelopathy or radiculopathy, cervical region; J45.909 Unspecified asthma, uncomplicated; E11.9 Type 2 diabetes mellitus without complications; I10 Essential (primary) hypertension; M19.90 Unspecified osteoarthritis, unspecified site; Z79.84 Long term (current) use of oral hypoglycemic drugs; Z79.4 Long term (current) use of insulin; Z79.899 Other long term (current) drug therapy; Z88.0 Allergy status to penicillin; Z88.1 Allergy status to other antibiotic agents; Z88.2 Allergy status to sulfonamides; Z88.8 Allergy status to other drugs, medicaments and biological substances; Z91.040 Latex allergy status; Z79.1 Long term (current) use of non-steroidal anti-inflammatories (NSAID); W01.0XXA Fall on same level from slipping, tripping and stumbling without subsequent striking against object, initial encounter; Y92.009 Unspecified place in unspecified non-institutional (private) residence as the place of occurrence of the external cause
CPT/HCPCS: 72100; 72125; 99284

== ENCOUNTER → 2022-08-28 | Outpatient (CLI) | payer OTHER ==
[2022-08-28 16:39] LABS: Basophils # (A) 0.08 X 10*3/uL (0.00-0.10); Basophils % (A) 1.3 %; Eosinophils # (A) 0.32 X 10*3/uL (0.04-0.35); Eosinophils % (A) 5.2 %; HCT 49.7 % (37.2-46.3); HGB 15.4 g/dL (12.0-15.0); Immature Grans, Automated 0.3 %; Lymphocytes # (A) 2.72 X 10*3/uL (0.90-5.00); Lymphocytes % (A) 44.2 %; MCH 28.5 pg (27.0-32.0); Mean Platelet Volume 11.2 fL (9.5-12.2); Monocytes # (A) 0.51 X 10*3/uL (0.20-1.00); Monocytes % (A) 8.3 %; NRBC Per 100 WBC 0 /100 WBCS (0.0-0.0); Neutrophils # (A) 2.51 X 10*3/uL (1.80-7.70); Neutrophils % (A) 40.7 %; Platelet Count 286 X 10*3/uL (140-440); RDW 13.3 % (11.5-14.5); WBC 6.16 X 10*3/uL (4.50-10.00)
[2022-08-28 16:42] LABS: Appearance,Urine Cloudy (Clear); Bilirubin,Urine Negative (Negative); Blood,Urine Negative (Negative); Color,Urine Yellow (Yellow); Ketones,Urine Negative (Negative); Nitrite,Urine Positive (Negative); Specific Gravity,Urine 1.022 (1.001-1.030); Urobilinogen,Urine 0.2 (0.2,1.0)
[2022-08-28 17:01] LABS: % Iron Saturation 33.32 (12.00-45.00); Albumin 4.3 g/dL (3.8-4.9); Albumin/Globulin Ratio 1.34 (1.60-3.17); Anion Gap 13.6 mmol/L (10.00-18.00); BUN/Creat Ratio 27.25 Ratio (12.00-20.00); Blood Urea Nitrogen 43.6 mg/dL (9.0-27.0); Calcium 10.3 mg/dL (8.7-10.3); Carbon Dioxide 26.4 mmol/L (20.0-27.5); Globulin 3.2 g/dL (1.6-3.3); Magnesium 1.9 mg/dL (1.5-2.4); Non-African American GFR(CKD) 35.4 (60.0-200.0); Phosphorus 4.7 mg/dL (2.4-5.1); Potassium 4.7 mmol/L (3.5-5.5); Total Bilirubin 0.8 mg/dL (0.30-1.20); Total Protein 7.5 g/dL (6.2-8.2)
[2022-08-28 19:58] LABS: Bacteria,Urine 3+ /HPF (None Seen); Yeast (UA) Present /LPF (None Seen)
== END | disposition home or self-care (01) ==
LOC: LABWHC1 10:53
PROVIDERS: ATTEND Nurse Practitioner Family
DX: N25.81 Secondary hyperparathyroidism of renal origin (principal); N18.31 Chronic kidney disease, stage 3a; D63.1 Anemia in chronic kidney disease; N39.0 Urinary tract infection, site not specified; E55.9 Vitamin D deficiency, unspecified; M10.9 Gout, unspecified
CPT/HCPCS: 36415; 80053; 81001; 82306; 83540; 83550; 83735; 83970; 84100; 84550; 85025

== ENCOUNTER 2022-12-30 18:51 | Emergency (ER) | payer OTHER ==
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
--- NOTE | 2022-12-30 21:12 | XR ---
PROCEDURE: XR foot complete RT - 3V DATE AND TIME: 12/30/2022 7:20 PM CLINICAL INDICATION: PHH; pain TECHNIQUE: Department protocol COMPARISON: 12/28/2017 FINDINGS: There is no acute fracture or malalignment. The soft tissues are unremarkable. IMPRESSION: No acute radiographic process.
[2022-12-30 21:18] VITALS: BP 106/64; PULSE 102; RESP 16; TEMP 98.3
== END 2022-12-30 21:46 | disposition home or self-care (01) ==
LOC: EC 18:51
DX: S93.601A Unspecified sprain of right foot, initial encounter (principal); J45.909 Unspecified asthma, uncomplicated; E11.9 Type 2 diabetes mellitus without complications; I10 Essential (primary) hypertension; K21.9 Gastro-esophageal reflux disease without esophagitis; M19.90 Unspecified osteoarthritis, unspecified site; Z79.4 Long term (current) use of insulin; Z79.899 Other long term (current) drug therapy; Z88.0 Allergy status to penicillin; Z91.040 Latex allergy status; Z88.2 Allergy status to sulfonamides; Z88.8 Allergy status to other drugs, medicaments and biological substances; X58.XXXA Exposure to other specified factors, initial encounter
CPT/HCPCS: 99283

== ENCOUNTER 2023-01-23 08:30 | Inpatient (IN) | payer OTHER ==
[2023-01-23] MEDS ORDERED: DIPHENOX-ATROP 2.5-0.025 MG 1 EACH TAB PO STA (09:01)
[2023-01-23] MEDS ORDERED: SODIUM CHLORIDE 0.9% 1,000 ML IV STA ×2 (09:01→10:11)
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
[2023-01-23] MEDS ORDERED: HYDROCORTISONE 2.5% RECTAL CREAM 30 GM TUBE RECTAL ONE (09:30)
[2023-01-23] MEDS ORDERED: HYDROmorphone 1 MG/ML 1 ML SYRINGE IVP STA ×2 (09:49→10:49)
[2023-01-23 09:56] LABS: Basophils # (A) 0.1 k/uL (0-0.2); Basophils % (A) 1 %; Eosinophils # (A) 0.1 k/uL (0-0.7); Eosinophils % (A) 2 %; HCT 48.3 % (34.0-46.0); HGB 15.5 gm/dL (11.4-16.0); Lymphocytes # (A) 1.8 k/uL (1.0-4.8); Lymphocytes % (A) 20 %; MCH 29.5 pg (25.0-35.0); MCHC 32.1 g/dL (31.0-37.0); MCV 91.9 fL (80.0-100.0); Mean Platelet Volume 8.2; Monocytes # (A) 0.7 k/uL (0-1.0); Monocytes % (A) 7 %; Neutrophils # (A) 6.3 k/uL (1.3-7.7); Neutrophils % (A) 69 %; Platelet Count 326 k/uL (150-450); RBC 5.25 m/uL (3.80-5.40); RDW 13.5 % (11.5-15.5); WBC 9.2 k/uL (3.8-10.6)
[2023-01-23 10:06] LABS: Albumin 4.3 g/dL (3.5-5.0); Potassium 4.9 mmol/L (3.5-5.1); Total Bilirubin 0.6 mg/dL (0.2-1.3); Total Protein 7.4 g/dL (6.3-8.2)
[2023-01-23] MEDS ORDERED: NALOXONE 0.4 MG/ML 1 ML VIAL IV PRN (11:21)
[2023-01-23] MEDS ORDERED: ONDANSETRON 4 MG/2 ML VIAL IVP PRN (11:21)
[2023-01-23] MEDS ORDERED: ACETAMINOPHEN TAB 325 MG TAB PO PRN (11:21)
[2023-01-23] MEDS ORDERED: CYCLOBENZAPRINE 10 MG TAB PO PRN (15:08)
[2023-01-23] MEDS ORDERED: ALBUTEROL NEBULIZED 2.5 MG/3 ML INHALATION PRN (15:08)
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
[2023-01-23 16:43] LABS: Glucose,Whole Blood 405 mg/dL (70-110)
[2023-01-23] MEDS ORDERED: INSULIN REGULAR 100 UNIT/ML VIAL (IV) IV ONE (17:00)
[2023-01-23 17:41] LABS: Glucose,Whole Blood 255 mg/dL (70-110)
[2023-01-23] MEDS ORDERED: SODIUM CHLORIDE 0.9% 500 ML 250 ML IV ONE (18:55)
[2023-01-23] MEDS ORDERED: DEXTROSE 50% SYRINGE 50 ML IVP PRN ×2 (19:06)
[2023-01-23] MEDS: SODIUM CHLORIDE 0.9% 1,000 ML IV SCH (20:01)
[2023-01-23 20:38] LABS: Glucose,Whole Blood 340 mg/dL (70-110)
[2023-01-23] MEDS: INSULIN ASPART (NovoLOG) 100 UNIT/ML VIAL SQ SCH (20:44)
[2023-01-23] MEDS: INSULN ASP PRT/INSULIN ASPART 100 UNIT/ML 10 ML VIAL SQ SCH (20:45)
[2023-01-23] MEDS: FLUTICASONE 50MCG/SPRAY NASAL 16GM EA NOSTRIL SCH (20:45)
[2023-01-23] MEDS: PREGABALIN 75 MG CAP PO SCH (20:45)
--- NOTE | 2023-01-23 20:45 | US ---
EXAMINATION TYPE: US renals and bladder DATE OF EXAM: 01/23/2023 COMPARISON: Renal ultrasound 11/01/2022 CLINICAL INDICATION: Female, 57 years old with history of hydronephrosis; Hydronephrosis limited due to body habitus. EXAM MEASUREMENTS: Right Kidney: 9.6 x 4.4 x 4.2 cm Left Kidney: 10.3 x 4.2 x 3.3 cm Right Kidney: No hydronephrosis or masses seen. No shadowing bladder calculi. Left Kidney: No hydronephrosis or masses seen. No shadowing bladder calculi. Bladder: Not visualized IMPRESSION: 1. Limited examination due to patient body habitus. No hydronephrosis seen. 2. Urinary bladder is not visualized due to underdistention.
[2023-01-23] MEDS ORDERED: TEMAZEPAM 15 MG CAP PO STA (22:29)
[2023-01-24] MEDS: SODIUM CHLORIDE 0.9% 1,000 ML IV SCH ×3 (03:40→20:15)
[2023-01-24] MEDS: LEVOTHYROXINE 50 MCG TAB PO SCH (06:06)
[2023-01-24 06:20] LABS: African American GFR (CKD) 18 (>60 ml/min/1.73 sqM); Anion Gap 11 mmol/L; Blood Urea Nitrogen 43 mg/dL (7-17); Calcium 7.8 mg/dL (8.4-10.2); Carbon Dioxide 24 mmol/L (22-30); Chloride 96 mmol/L (98-107); Glucose 202 mg/dL (74-99); Non-African American GFR(CKD) 16 (>60 ml/min/1.73 sqM); Potassium 4.3 mmol/L (3.5-5.1); Sodium 131 mmol/L (137-145)
[2023-01-24 07:53] LABS: Glucose,Whole Blood 284 mg/dL (70-110)
[2023-01-24] MEDS: INSULIN ASPART (NovoLOG) 100 UNIT/ML VIAL SQ SCH ×4 (08:16→21:32)
[2023-01-24] MEDS: ATORVASTATIN 20 MG TAB PO SCH (08:17)
[2023-01-24] MEDS: SERTRALINE 100 MG TAB PO SCH (08:17)
[2023-01-24] MEDS: INSULN ASP PRT/INSULIN ASPART 100 UNIT/ML 10 ML VIAL SQ SCH ×2 (08:17→21:32)
[2023-01-24] MEDS: PIOGLITAZONE 15 MG TAB PO SCH (08:17)
[2023-01-24] MEDS: FLUTICASONE 50MCG/SPRAY NASAL 16GM EA NOSTRIL SCH ×2 (08:18→20:15)
[2023-01-24] MEDS: CHOLECALCIFEROL 25 MCG (1000 IU) TABLET PO SCH (08:18)
[2023-01-24] MEDS: FAMOTIDINE 20 MG TAB PO SCH (08:18)
[2023-01-24] MEDS: LORATADINE 10 MG TAB PO SCH (08:18)
[2023-01-24] MEDS: PREGABALIN 75 MG CAP PO SCH ×2 (08:21→20:15)
[2023-01-24] MEDS ORDERED: DAPAGLIFLOZIN PROPANEDIOL 10 MG TABLET PO SCH (09:00)
[2023-01-24] MEDS ORDERED: lisinopriL 20 MG TAB PO SCH (09:00)
[2023-01-24 09:55] LABS: Appearance,Urine Cloudy (Clear); Bilirubin,Urine Negative (Negative); Blood,Urine Small (Negative); Budding Yeast,Urine Many /hpf; Color,Urine Yellow; Glucose,Urine (UA) 4+ (Negative); Ketones,Urine Negative (Negative); Leukocyte Esterase,Urine Small (Negative); Mucus,Urine Rare /hpf; Nitrite,Urine Negative (Negative); Protein,Urine Trace (Negative); RBC,Urine 37 /hpf (0-5); Specific Gravity,Urine 1.015 (1.001-1.035); Squamous Epithelial Cell,Urine 2 /hpf (0-4); Urobilinogen,Urine <2.0 mg/dL (<2.0); WBC,Urine 11 /hpf (0-5)
--- NOTE | 2023-01-24 12:19 | P.PN ---
Subjective Patient is seen for follow-up for acute kidney injury and top of chronic kidney disease. Underlying CK D with baseline creatinine of 1.3-1.5 mg/dL secondary to nephrosclerosis. Patient is admitted to the hospital with profuse diarrhea. She does follow-up up as outpatient with GI. Apparently a new medication was started recently and patient believes the diarrhea got worse after these medications were started. No history of fever chills nausea vomiting. Patient has been voiding well. Serum creatinine was 2.8 on admission and increased to 3.1 today. Blood pressure was low and lisinopril was discontinued today. Patient was also on farxiga, currently on hold Objective - Vital Signs Vital signs: Vital Signs Temp 97.7 F 01/24/23 07:00 Pulse 70 01/24/23 07:00 Resp 18 01/24/23 07:00 BP 112/67 01/24/23 07:00 Pulse Ox 96 01/24/23 07:00 FiO2 Intake & Output 01/23/23 01/24/23 01/24/23 18:59 06:59 18:59 Weight 136.078 kg Other: Voiding Method Toilet Toilet # Voids 1 - Exam Awake, comfortable, no acute distress Alert oriented 3 Examination of the heart S1 and S2 Examination of the lungs bilateral breath sounds are heard Abdomen is soft nontender Examination of lower extremity shows no significant edema - Labs CBC & Chem 7: 01/23/23 09:37 01/24/23 05:31 Labs: Abnormal Lab Results - Last 24 Hours (Table) 01/23/23 01/23/23 01/23/23 Range/Units 16:41 17:39 20:36 Sodium (137-145) mmol/L Chloride (98-107) mmol/L BUN (7-17) mg/dL Creatinine (0.52-1.04) mg/dL Glucose (74-99) mg/dL POC Glucose (mg/dL) 405 H 255 H 340 H (70-110) mg/dL Calcium (8.4-10.2) mg/dL Urine Appearance (Clear) Urine Protein (Negative) Urine Glucose (UA) (Negative) Urine Blood (Negative) Ur Leukocyte Esterase (Negative) Urine RBC (0-5) /hpf Urine WBC (0-5) /hpf Urine Mucus (None) /hpf Urine Yeast (Budding) (None) /hpf 01/24/23 01/24/23 01/24/23 Range/Units 05:31 07:51 09:02 Sodium 131 L (137-145) mmol/L Chloride 96 L (98-107) mmol/L BUN 43 H (7-17) mg/dL Creatinine 3.10 H (0.52-1.04) mg/dL Glucose 202 H (74-99) mg/dL POC Glucose (mg/dL) 284 H (70-110) mg/dL Calcium 7.8 L (8.4-10.2) mg/dL Urine Appearance Cloudy H (Clear) Urine Protein Trace H (Negative) Urine Glucose (UA) 4+ H (Negative) Urine Blood Small H (Negative) Ur Leukocyte Esterase Small H (Negative) Urine RBC 37 H (0-5) /hpf Urine WBC 11 H (0-5) /hpf Urine Mucus Rare H (None) /hpf Urine Yeast (Budding) Many H (None) /hpf Assessment and Plan Assessment: 1. Acute kidney injury ATN currently nonoliguric associated with hypotension and volume depletion. UA shows trace protein and small blood and WBCs 11. Ultrasound shows no evidence of hydronephrosis. IKE inhibitor's and farxiga on hold. 2. Chronic kidney disease NKF stage IIIB secondary to nephrosclerosis with baseline creatinine around 1.5 mg/dL 3. Profound diarrhea associated with recent initiation of medications. Patient follows with GI as outpatient 4. Pyuria rule out UTI 5. Hypotension secondary to hypovolemia. IKE inhibitor's currently on hold Plan: Continue IV fluids Check urine culture Repeat labs in a.m. Agree with discontinuation of IKE inhibitor's and Farxiga
[2023-01-24 12:20] LABS: Glucose,Whole Blood 127 mg/dL (70-110)
[2023-01-24 17:14] LABS: Glucose,Whole Blood 208 mg/dL (70-110)
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
[2023-01-24] MEDS: TEMAZEPAM 15 MG CAP PO SCH (20:15)
[2023-01-24 21:14] LABS: Glucose,Whole Blood 216 mg/dL (70-110)
[2023-01-24] MEDS: HEPARIN SODIUM,PORCINE/PF 5,000 UNIT/0.5 ML SYRINGE SQ SCH ×2 (21:33→23:06)
[2023-01-25] MEDS: SODIUM CHLORIDE 0.9% 1,000 ML IV SCH ×3 (02:52→20:33)
[2023-01-25 05:12] LABS: Glucose,Whole Blood 144 mg/dL (70-110)
[2023-01-25] MEDS: INSULIN ASPART (NovoLOG) 100 UNIT/ML VIAL SQ SCH ×4 (05:18→21:44)
[2023-01-25] MEDS: LEVOTHYROXINE 50 MCG TAB PO SCH (05:31)
[2023-01-25 07:26] LABS: Basophils % (A) 1 %; Eosinophils # (A) 0.2 k/uL (0-0.7); Eosinophils % (A) 3 %; HCT 39.1 % (34.0-46.0); Lymphocytes # (A) 2.6 k/uL (1.0-4.8); Lymphocytes % (A) 37 %; MCH 29.7 pg (25.0-35.0); MCHC 31.9 g/dL (31.0-37.0); Mean Platelet Volume 7.7; Monocytes # (A) 0.6 k/uL (0-1.0); Monocytes % (A) 9 %; Neutrophils # (A) 3.3 k/uL (1.3-7.7); Neutrophils % (A) 47 %; Platelet Count 227 k/uL (150-450); RDW 13.5 % (11.5-15.5); WBC 7.1 k/uL (3.8-10.6)
[2023-01-25 07:46] LABS: HGB 12.5 gm/dL (11.4-16.0)
[2023-01-25 07:47] LABS: ALT 30 U/L (4-34); AST 36 U/L (14-36); African American GFR (CKD) 34 (>60 ml/min/1.73 sqM); Albumin 2.7 g/dL (3.5-5.0); Albumin/Globulin Ratio 1.1; Alkaline Phosphatase 102 U/L (38-126); Anion Gap 8 mmol/L; Blood Urea Nitrogen 35 mg/dL (7-17); Calcium 7.9 mg/dL (8.4-10.2); Carbon Dioxide 23 mmol/L (22-30); Chloride 103 mmol/L (98-107); Globulin 2.5 g/dL; Glucose 162 mg/dL (74-99); Non-African American GFR(CKD) 29 (>60 ml/min/1.73 sqM); Potassium 4.1 mmol/L (3.5-5.1); Sodium 134 mmol/L (137-145); Total Bilirubin 0.3 mg/dL (0.2-1.3); Total Protein 5.2 g/dL (6.3-8.2)
[2023-01-25] MEDS: SERTRALINE 100 MG TAB PO SCH (08:13)
[2023-01-25] MEDS: PREGABALIN 75 MG CAP PO SCH ×2 (08:14→20:32)
[2023-01-25] MEDS: LORATADINE 10 MG TAB PO SCH (08:14)
[2023-01-25] MEDS: ATORVASTATIN 20 MG TAB PO SCH (08:14)
[2023-01-25] MEDS: FAMOTIDINE 20 MG TAB PO SCH (08:14)
[2023-01-25] MEDS: CHOLECALCIFEROL 25 MCG (1000 IU) TABLET PO SCH (08:14)
[2023-01-25] MEDS: PIOGLITAZONE 15 MG TAB PO SCH (08:14)
[2023-01-25] MEDS: INSULN ASP PRT/INSULIN ASPART 100 UNIT/ML 10 ML VIAL SQ SCH ×2 (08:15→21:44)
[2023-01-25] MEDS: HEPARIN SODIUM,PORCINE/PF 5,000 UNIT/0.5 ML SYRINGE SQ SCH ×3 (08:16→20:33)
[2023-01-25] MEDS: FLUTICASONE 50MCG/SPRAY NASAL 16GM EA NOSTRIL SCH ×2 (08:20→20:32)
--- NOTE | 2023-01-25 12:18 | P.PN ---
Subjective Patient is seen for follow-up for acute kidney injury and top of chronic kidney disease. Underlying CK D with baseline creatinine of 1.3-1.5 mg/dL secondary to nephrosclerosis. Patient is admitted to the hospital with profuse diarrhea. She does follow-up up as outpatient with GI. Apparently a new medication was started recently and patient believes the diarrhea got worse after these medications were started. No history of fever chills nausea vomiting. Patient has been voiding well. Serum creatinine was 2.8 on admission and increased to 3.1 and down to 1.87 today Blood pressure was low currently improved. Patient wants to go home today. Overall feeling much better. Objective - Vital Signs Vital signs: Vital Signs Temp 97.6 F 01/25/23 07:00 Pulse 76 01/25/23 07:00 Resp 16 01/25/23 08:00 BP 154/77 01/25/23 07:00 Pulse Ox 97 01/25/23 07:00 FiO2 Intake & Output 01/24/23 01/25/23 01/25/23 18:59 06:59 18:59 Intake Total 236 118 Balance 236 118 Intake: Oral 236 118 Other: Voiding Method Toilet Toilet Toilet # Voids 2 2 - Exam Awake, comfortable, no acute distress Alert oriented 3 Appears euvolemic. Examination of lower extremity shows no significant edema - Labs CBC & Chem 7: 01/25/23 06:50 01/25/23 06:50 Labs: Abnormal Lab Results - Last 24 Hours (Table) 01/24/23 01/24/23 01/24/23 Range/Units 05:31 09:20 09:20 Sodium (137-145) mmol/L BUN (7-17) mg/dL Creatinine (0.52-1.04) mg/dL Glucose (74-99) mg/dL POC Glucose (mg/dL) (70-110) mg/dL Hemoglobin A1c 13.8 H % Calcium (8.4-10.2) mg/dL Total Protein (6.3-8.2) g/dL Albumin (3.5-5.0) g/dL Ur Random Microalbumin 3.3 H mg/dL Ur Random Sodium <20 L mmol/L 01/24/23 01/24/23 01/24/23 Range/Units 12:15 17:12 21:13 Sodium (137-145) mmol/L BUN (7-17) mg/dL Creatinine (0.52-1.04) mg/dL Glucose (74-99) mg/dL POC Glucose (mg/dL) 127 H 208 H 216 H (70-110) mg/dL Hemoglobin A1c % Calcium (8.4-10.2) mg/dL Total Protein (6.3-8.2) g/dL Albumin (3.5-5.0) g/dL Ur Random Microalbumin mg/dL Ur Random Sodium mmol/L 01/25/23 01/25/23 Range/Units 05:10 06:50 Sodium 134 L (137-145) mmol/L BUN 35 H (7-17) mg/dL Creatinine 1.87 H (0.52-1.04) mg/dL Glucose 162 H (74-99) mg/dL POC Glucose (mg/dL) 144 H (70-110) mg/dL Hemoglobin A1c % Calcium 7.9 L (8.4-10.2) mg/dL Total Protein 5.2 L (6.3-8.2) g/dL Albumin 2.7 L (3.5-5.0) g/dL Ur Random Microalbumin mg/dL Ur Random Sodium mmol/L Assessment and Plan Assessment: 1. Acute kidney injury ATN currently nonoliguric associated with hypotension and volume depletion. Improved. UA shows trace protein and small blood and WBCs 11. Ultrasound shows no evidence of hydronephrosis. IKE inhibitor's and farxiga on hold. 2. Chronic kidney disease NKF stage IIIB secondary to nephrosclerosis with baseline creatinine around 1.5 mg/dL 3. Profound diarrhea associated with recent initiation of medications. Patient follows with GI as outpatient 4. Pyuria rule out UTI 5. Hypotension secondary to hypovolemia. IKE inhibitor's currently on hold Plan: Okay to discharge from nephrology standpoint. May resume far Segar in the next 3-4 days
[2023-01-25 12:37] LABS: Glucose,Whole Blood 101 mg/dL (70-110)
[2023-01-25 14:29] VITALS: BMI 49.9
[2023-01-25] MEDS ORDERED: NON FORMULARY DRUG (Dulaglutide [Trulicity] 4.5 MG/0.5 ML Each) SQ SCH (15:08)
[2023-01-25] MEDS ORDERED: ALPRAZolam 0.25 MG TAB PO STA (16:34)
[2023-01-25 17:36] LABS: Glucose,Whole Blood 191 mg/dL (70-110)
--- NOTE | 2023-01-25 18:13 | P.PN ---
Subjective Progress Note Date: 01/25/23 HISTORY OF PRESENT ILLNESS: this is a 57-year-old female with a previous medical history signif icant for hypertension and hypertensive cardio vascular disease, mixed hyperlipidemia, diabetes mellitus type 2, obesity, restless leg syndrome, ALLERGIC rhinitis, seizure disorder, spondylosis of the cervical spine, 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 osteoporosis and migraine headaches along with DVT of the left lower extremity with a chronic kidney disease stage II patient presented to the emergency department at [facility] after 2 day history of increased abdominal pain associated with cramping and nausea and severe diarrhea patient stated that she was started by her host/hostess head on 2 medications ursodiol as well as dicyclomine patient did have a syncopal episode after she took these medications, she called her host/hostess head and she ask her to stop the medication, however her diarrhea did not get better, so she came to the ER she was found to have an acute kidney injury on chronic kidney disease stage II, she was started on IV fluid resuscitation and she was admitted to the hospital with consultation from nephrology. 01/25: patient is sitting up in bed in no evident her chest, she stated that her diarrhea is better today, we'll discontinue Lomotil, continue to have the issues with anxiety and she stated that she has some issues at home with her kids, patient the will likely be discharged over the next 24 hours, continue IV fluid resuscitation for another 24 hours, her creatinine is at 1.87, her baseline is 1.6 1.7, avoid nephrotoxins, continue to hold Farxiga And lisinopril REVIEW OF SYSTEMS: Constitutional: No documented fever, no chills, no night sweats. No weight change. positive for weakness, fatigue or lethargy. No daytime sleepiness. HEENT: No headache. No blurred vision or double vision, no loss of vision. No loss of Hearing, no ringing in the ears, no dizziness. No nasal drainage or congestion. No epistaxis. No sore throat. Lungs: No shortness of breath, no cough, no sputum production. No wheezing. Reports dyspnea with activity. Cardiovascular: No chest pain, no lower extremity edema. No palpitations. No paroxysmal nocturnal dyspnea. No orthopnea. No lightheadedness or dizziness. No syncopal episodes. Abdominal: Reports abdominal pain. positive for nausea, no vomiting. positive for diarrhea. No constipation. No bloody or tarry stools reports loss of appetite. Genitourinary: No dysuria, increased frequency, urgency. No urinary retention. Musculoskeletal: No myalgias. No muscle weakness, positive for gait dysfunction, no frequent falls. positive for back pain and neck pain. Integumentary: No wounds, no lesions. positive for intertrigo rash or pruritus. No unusual bruising. No change in hair or nails. Neurologic: No aphasia. No facial droop. No change in mentation. No head injury. No headache. No paralysis. No paresthesia. Psychiatric: positive for depression. No anxiety. No mood swings. Endocrine: No abnormal blood sugars. No weight change. PHYSICAL EXAMINATION: General: 57-year-old female laying down in bed in no apparent distress HEENT: Head is atraumatic, normocephalic, pupils were equal round reactive to light and recommendation, extraocular muscle movement were intact, sclera nonicteric, conjunctivae were pale, mucous membranes of the mouth are somewhat dry. Neck: Supple, no JVP, normal carotid upstroke bilaterally, no lymphadenopathy. Chest: Decreased breath sounds at the bases, few rhonchi, no expiratory wheezes, no chest wall tenderness, no intercostal retractions. Heart: First heart sound is normal, second heart sounds normal there is systolic ejection murmur 2/6 located in the left sternal border Abdomen: Soft, moderate non specific tenderness nondistended, positive bowel sounds. Extremities: There is no edema no calf tenderness DP +2 bilaterally. Neurologic examination: Patient is awake alert and oriented X 3 , cranial nerves II-12 appear grossly intact, muscle power were 5 out of 5 in upper extremities and 3 out of 5 in bilateral lower extremities, deep tendon reflexes normal bilaterally. ASSESSMENT AND PLAN: 1. acute kidney injury on chronic kidney disease stage IIIa Due to acute tubular necrosis due to gastric distention fluid loss. Continue IV fluid resuscitation the form of normal saline, monitor the input and output and daily weight, monitor the patient CMP, nephrology consultation appreciated, ultrasound of the kidneys were done did not show evidence of acute hydronephrosis.discontinue lisinopril and Farxiga 2. Hyponatremia secondary to hypovolemia. Continue IV fluid resuscitation, monitor the patient CMP and a daily basis. 3. Transient hypotension due to hypovolemia continue IV fluid resuscitation, monitor the patient input and output and daily weight. 4. hypertension and hypertensive cardio vascular disease. Currently hypotensive discontinue lisinopril . 5. Mixed hyperlipidemia. continue atorvastatin 20 mg orally once every day. 6. hypothyroidism. Continue patient on levothyroxin 50 g orally once every day . 7. Diabetes mellitus type 2. Continue NovoLog Mix 70/30 15 units in the morning and 30 and suppertime, continue Actos 15 mg orally once every day, co ntinue with Trulicity 4.5 mg subcu Tuesday once every week 8. Spondylosis of the lumbar spine and and cervical spine status post spinal cord stimulator continue current pain management as well as muscle relaxer. 9. Severe diarrhea likely related to IBS. Continue patient on Lomotil once every 6 hours as needed. 10. Restless leg syndrome. Continue patient on ropinirole 0.5 mg orally once every bedtime. 11. depression. Continue Zoloft 100 mg once every day. 12. Seizure disorder. Continue Keppra 1500 mg the morning and 750 mg at bedtime. Check Keppra level. 13. DVT prophylaxis. Continue patient on heparin 5000 units subcutaneously every 8 hours. 14. GI prophylaxis. Continue patient on famotidine 20 mg orally once every day. 15. home tomorrow morning. Objective - Vital Signs Vital signs: Vital Signs Temp 98.1 F 01/25/23 15:00 Pulse 88 01/25/23 15:00 Resp 16 01/25/23 15:00 BP 91/52 01/25/23 15:00 Pulse Ox 95 01/25/23 15:00 FiO2 Intake & Output 01/24/23 01/25/23 01/25/23 18:59 06:59 18:59 Intake Total 236 236 Balance 236 236 Weight 136.078 kg Intake: Oral 236 236 Other: Voiding Method Toilet Toilet Toilet # Voids 2 2 1 - Labs CBC & Chem 7: 01/25/23 06:50 01/25/23 06:50 Labs: Abnormal Lab Results - Last 24 Hours (Table) 01/24/23 01/24/23 01/24/23 Range/Units 09:20 09:20 21:13 Sodium (137-145) mmol/L BUN (7-17) mg/dL Creatinine (0.52-1.04) mg/dL Glucose (74-99) mg/dL POC Glucose (mg/dL) 216 H (70-110) mg/dL Calcium (8.4-10.2) mg/dL Total Protein (6.3-8.2) g/dL Albumin (3.5-5.0) g/dL Ur Random Microalbumin 3.3 H mg/dL Ur Random Sodium <20 L mmol/L 01/25/23 01/25/23 01/25/23 Range/Units 05:10 06:50 17:34 Sodium 134 L (137-145) mmol/L BUN 35 H (7-17) mg/dL Creatinine 1.87 H (0.52-1.04) mg/dL Glucose 162 H (74-99) mg/dL POC Glucose (mg/dL) 144 H 191 H (70-110) mg/dL Calcium 7.9 L (8.4-10.2) mg/dL Total Protein 5.2 L (6.3-8.2) g/dL Albumin 2.7 L (3.5-5.0) g/dL Ur Random Microalbumin mg/dL Ur Random Sodium mmol/L
[2023-01-25] MEDS: TEMAZEPAM 15 MG CAP PO SCH (20:32)
[2023-01-25 20:56] LABS: Glucose,Whole Blood 288 mg/dL (70-110)
[2023-01-26 02:47] VITALS: RESP 14
[2023-01-26] MEDS: SODIUM CHLORIDE 0.9% 1,000 ML IV SCH ×2 (03:18→11:52)
[2023-01-26 06:05] LABS: Glucose,Whole Blood 236 mg/dL (70-110)
[2023-01-26] MEDS: LEVOTHYROXINE 50 MCG TAB PO SCH (06:27)
[2023-01-26] MEDS: INSULIN ASPART (NovoLOG) 100 UNIT/ML VIAL SQ SCH ×2 (06:27→12:30)
[2023-01-26] MEDS: PIOGLITAZONE 15 MG TAB PO SCH (09:36)
[2023-01-26] MEDS: CHOLECALCIFEROL 25 MCG (1000 IU) TABLET PO SCH (09:36)
[2023-01-26] MEDS: HEPARIN SODIUM,PORCINE/PF 5,000 UNIT/0.5 ML SYRINGE SQ SCH (09:36)
[2023-01-26] MEDS: ATORVASTATIN 20 MG TAB PO SCH (09:37)
[2023-01-26] MEDS: FAMOTIDINE 20 MG TAB PO SCH (09:37)
[2023-01-26] MEDS: SERTRALINE 100 MG TAB PO SCH (09:37)
[2023-01-26] MEDS: PREGABALIN 75 MG CAP PO SCH (09:37)
[2023-01-26] MEDS: LORATADINE 10 MG TAB PO SCH (09:37)
[2023-01-26] MEDS: FLUTICASONE 50MCG/SPRAY NASAL 16GM EA NOSTRIL SCH (09:38)
[2023-01-26] MEDS: INSULN ASP PRT/INSULIN ASPART 100 UNIT/ML 10 ML VIAL SQ SCH (09:38)
[2023-01-26 11:48] LABS: Glucose,Whole Blood 259 mg/dL (70-110)
[2023-01-26 11:53] LABS: BUN/Creat Ratio 18.94 Ratio (12.00-20.00); Blood Urea Nitrogen 32.2 mg/dL (9.0-27.0); Glucose 254 mg/dL (70-110)
[2023-01-26 11:54] LABS: Calcium 8.2 mg/dL (8.7-10.3); Carbon Dioxide 25.7 mmol/L (21.6-31.8); Chloride 99 mmol/L (96-109); Potassium 5.1 mmol/L (3.5-5.5); Sodium 136 mmol/L (135-145)
--- NOTE | 2023-01-26 11:54 | P.PN ---
Subjective Patient is seen for follow-up for acute kidney injury and top of chronic kidney disease. Underlying CK D with baseline creatinine of 1.3-1.5 mg/dL secondary to nephrosclerosis. Patient is admitted to the hospital with profuse diarrhea. She does follow-up up as outpatient with GI. Apparently a new medication was started recently and patient believes the diarrhea got worse after these medications were started. No history of fever chills nausea vomiting. Patient has been voiding well. Serum creatinine was 2.8 on admission and increased to 3.1 and down to 1.87 Blood pressure was low currently improved. Patient wants to go home today. Overall feeling much better. Objective - Vital Signs Vital signs: Vital Signs Temp 98.1 F 01/26/23 07:00 Pulse 68 01/26/23 07:00 Resp 14 01/26/23 07:00 BP 124/71 01/26/23 07:00 Pulse Ox 97 01/26/23 01:30 FiO2 Intake & Output 01/25/23 01/26/23 01/26/23 18:59 06:59 18:59 Intake Total 236 118 Balance 236 118 Weight 136.078 kg Intake: Oral 236 118 Other: Voiding Method Toilet Toilet Toilet # Voids 1 3 - Exam Awake, comfortable, no acute distress Alert oriented 3 Appears euvolemic. Examination of lower extremity shows no significant edema - Labs CBC & Chem 7: 01/25/23 06:50 01/25/23 06:50 Labs: Abnormal Lab Results - Last 24 Hours (Table) 01/25/23 01/25/23 01/26/23 Range/Units 17:34 20:56 06:04 POC Glucose (mg/dL) 191 H 288 H 236 H (70-110) mg/dL 01/26/23 Range/Units 11:45 POC Glucose (mg/dL) 259 H (70-110) mg/dL Assessment and Plan Assessment: 1. Acute kidney injury ATN currently nonoliguric associated with hypotension and volume depletion. Improved. UA shows trace protein and small blood and WBCs 11. Ultrasound shows no evidence of hydronephrosis. IKE inhibitor's and farxiga on hold. 2. Chronic kidney disease NKF stage IIIB secondary to nephrosclerosis with baseline creatinine around 1.5 mg/dL 3. Profound diarrhea associated with recent initiation of medications. Patient follows with GI as outpatient 4. Pyuria rule out UTI 5. Hypotension secondary to hypovolemia. IKE inhibitor's currently on hold Plan: Okay to discharge from nephrology standpoint. May resume farxiga in the next 3-4 days
[2023-01-26 14:52] VITALS: BP 157/88; PULSE 77; TEMP 100.8
--- NOTE | 2023-01-26 16:47 | P.DS ---
Providers Date of admission: 01/25/23 09:09 Expected date of discharge: 01/26/23 Attending physician: Sarah Costello Consults: 01/23/23 11:21 Consult Physician Urgent Consulting Provider: Patrick Carrillo Consult Reason/Comments: BAY Do you want consulting provider notified?: Yes 01/23/23 18:55 Consult Physician Routine Consulting Provider: Meme Haines Consult Reason/Comments: diarrhea Do you want consulting provider notified?: Yes Primary care physician: Sarah Costello Hospital Course: HISTORY OF PRESENT ILLNESS: this is a 57-year-old female with a previous medical history significant for hypertension and hypertensive cardio vascular disease, mixed hyperlipidemia, diabetes mellitus type 2, obesity, restless leg syndrome, ALLERGIC rhinitis, seizure disorder, spondylosis of the cervical spine, 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 osteoporosis and migraine headaches along with DVT of the left lower extremity with a chronic kidney disease stage II patient presented to the emergency department at [facility] after 2 day history of increased abdominal pain associated with cramping and nausea and severe diarrhea patient stated that she was started by her director business intelligence on 2 medications ursodiol as well as dicyclomine patient did have a syncopal episode after she took these medications, she called her director business intelligence and she ask her to stop the medication, however her diarrhea did not get better, so she came to the ER she was found to have an acute kidney injury on chronic kidney disease stage II, she was started on IV fluid resuscitation and she was admitted to the hospital with consultation from nephrology. 01/25: patient is sitting up in bed in no evident her chest, she stated that her diarrhea is better today, we'll discontinue Lomotil, continue to have the issues with anxiety and she stated that she has some issues at home with her kids, patient the will likely be discharged over the next 24 hours, continue IV fluid resuscitation for another 24 hours, her creatinine is at 1.87, her baseline is 1.6 1.7, avoid nephrotoxins, continue to hold Farxiga And lisinopril 01/26: Repeat blood work reveals significant improvement of renal function back to baseline with BUN of 32 and creatinine 1.7. Capillary blood glucose running between 191 and 288. Electrolytes are within normal limits including potassium of 5.1. Patient has been seen and followed by Dr. Jenkins with recommendations to hold lisinopril and Farxiga for 3 days. Patient has multiple questions and all questions have been answered. Patient will be discharged home today in stable condition. DISCHARGE DIAGNOSES 1. Acute kidney injury on chronic kidney disease stage IIIa Due to acute tubular necrosis due to gastric distention fluid loss. 2. Hyponatremia secondary to hypovolemia. 3. Ransient hypotension due to hypovolemia. 4. Hypertension and hypertensive cardio vascular disease. 5. Mixed hyperlipidemia. 6. Hypothyroidism. 7. Diabetes mellitus type 2. 8. Spondylosis of the lumbar spine and and cervical spine status post spinal cord stimulator. 9. Severe diarrhea likely related to IBS. 10. Restless leg syndrome. 11. depression. 12. Seizure disorder. Discharge plan: Home Greater than 35 minutes was utilized and coordinating patient's discharge. Impression and plan of care have been directed as dictated by the signing physician. Sandra Wen nurse practitioner acting as scribe for signing physician. Plan - Discharge Summary Discharge Rx Participant: No New Discharge Prescriptions: New Temazepam [Restoril] 15 mg PO HS #30 cap Continue levETIRAcetam [Keppra] 1,500 mg PO DAILY Atorvastatin [Lipitor] 20 mg PO DAILY levETIRAcetam [Keppra] 750 mg PO HS Cholecalciferol [Vitamin D3 (25 Mcg = 1000 Iu)] 50 mcg PO DAILY Fluticasone Nasal [place] [Flonase Nasal [place]] 1 spray EA NOSTRIL BID Pioglitazone [Actos] 15 mg PO DAILY Sertraline [Zoloft] 100 mg PO DAILY Loratadine [Claritin] 10 mg PO DAILY Pregabalin [Lyrica] 75 mg PO BID oxyCODONE HCL [oxyCODONE HCL (IR)] 10 mg PO TID PRN PRN Reason: Pain Insulin Aspart Prot/Insuln Asp [Novolog MIX 70-30 Flexpen] 30 unit SQ HS rOPINIRole HCL [Requip] 0.5 mg PO HS ondansetron HCL [Zofran] 4 mg PO BID PRN PRN Reason: Nausea Albuterol Sulfate [Proair Hfa] 2 puff INHALATION RT-Q6H PRN PRN Reason: Shortness Of Breath Levothyroxine Sodium [Synthroid] 50 mcg PO DAILY Dulaglutide [Trulicity] 4.5 mg SQ TU Famotidine [Pepcid] 20 mg PO DAILY Cyclobenzaprine [Flexeril] 10 mg PO HS PRN PRN Reason: Muscle Pain Nystatin 100,000Unit/gm Cream [Mycostatin Cream] 1 applic TOPICAL BID PRN PRN Reason: Rash Insulin Aspart Prot/Insuln Asp [Novolog MIX 70-30 Flexpen] 50 unit SQ DAILY Discontinued lisinopriL [Zestril] 20 mg PO DAILY Dapagliflozin Propanediol [Farxiga] 10 mg PO DAILY Discharge Medication List levETIRAcetam [Keppra] 1,500 mg PO DAILY 12/11/15 [History] Atorvastatin [Lipitor] 20 mg PO DAILY 03/22/19 [History] levETIRAcetam [Keppra] 750 mg PO HS 01/16/20 [History] Albuterol Sulfate [Proair Hfa] 2 puff INHALATION RT-Q6H PRN 03/18/21 [History] Cholecalciferol [Vitamin D3 (25 Mcg = 1000 Iu)] 50 mcg PO DAILY 03/18/21 [History] Fluticasone Nasal [place] [Flonase Nasal [place]] 1 spray EA NOSTRIL BID 03/18/21 [History] ondansetron HCL [Zofran] 4 mg PO BID PRN 03/18/21 [History] rOPINIRole HCL [Requip] 0.5 mg PO HS 03/18/21 [History] Cyclobenzaprine [Flexeril] 10 mg PO HS PRN 01/23/23 [History] Dulaglutide [Trulicity] 4.5 mg SQ TU 01/23/23 [History] Famotidine [Pepcid] 20 mg PO DAILY 01/23/23 [History] Insulin Aspart Prot/Insuln Asp [Novolog MIX 70-30 Flexpen] 30 unit SQ HS 01/23/23 [History] Insulin Aspart Prot/Insuln Asp [Novolog MIX 70-30 Flexpen] 50 unit SQ DAILY 01/23/23 [History] Levothyroxine Sodium [Synthroid] 50 mcg PO DAILY 01/23/23 [History] Loratadine [Claritin] 10 mg PO DAILY 01/23/23 [History] Nystatin 100,000Unit/gm Cream [Mycostatin Cream] 1 applic TOPICAL BID PRN 01/23/23 [History] Pioglitazone [Actos] 15 mg PO DAILY 01/23/23 [History] Pregabalin [Lyrica] 75 mg PO BID 01/23/23 [History] Sertraline [Zoloft] 100 mg PO DAILY 01/23/23 [History] oxyCODONE HCL [oxyCODONE HCL (IR)] 10 mg PO TID PRN 01/23/23 [History] Temazepam [Restoril] 15 mg PO HS #30 cap 01/26/23 [Rx] Follow up Appointment(s)/Referral(s): [facility], [NON-STAFF] - 1 Week Sarah Costello MD [Primary Care Provider] - 1 Week Patient Instructions/Handouts: Basic Carbohydrate Counting (DC), Meal Planning with Diabetes Exchanges (DC) Discharge Disposition: HOME WITH HOME HEALTH SERVICES
== END 2023-01-26 16:22 | disposition home health service (06) | DRG 469 ==
LOC: EC 08:30 → 6NMEDSUR 11:10 → OBSVTOIN 01-25 09:09
PROVIDERS: ADMIT Internal Medicine; ATTEND Internal Medicine
DX: N17.0 Acute kidney failure with tubular necrosis (principal); R19.7 Diarrhea, unspecified; E03.9 Hypothyroidism, unspecified; I12.9 Hypertensive chronic kidney disease with stage 1 through stage 4 chronic kidney disease, or unspecified chronic kidney disease; N18.31 Chronic kidney disease, stage 3a; Z94.0 Kidney transplant status; E86.1 Hypovolemia; E78.2 Mixed hyperlipidemia; E11.22 Type 2 diabetes mellitus with diabetic chronic kidney disease; E11.65 Type 2 diabetes mellitus with hyperglycemia; E66.01 Morbid (severe) obesity due to excess calories; E86.0 Dehydration; E87.1 Hypo-osmolality and hyponatremia; K58.0 Irritable bowel syndrome with diarrhea; M47.896 Other spondylosis, lumbar region; F32.A Depression, unspecified; G25.81 Restless legs syndrome; M47.892 Other spondylosis, cervical region; E86.9 Volume depletion, unspecified; G40.909 Epilepsy, unspecified, not intractable, without status epilepticus; I95.9 Hypotension, unspecified; I95.89 Other hypotension; J45.20 Mild intermittent asthma, uncomplicated; K21.9 Gastro-esophageal reflux disease without esophagitis; K31.89 Other diseases of stomach and duodenum; M47.816 Spondylosis without myelopathy or radiculopathy, lumbar region; G43.909 Migraine, unspecified, not intractable, without status migrainosus; M81.0 Age-related osteoporosis without current pathological fracture; M79.7 Fibromyalgia; J30.9 Allergic rhinitis, unspecified; M51.36 Other intervertebral disc degeneration, lumbar region; G47.00 Insomnia, unspecified; Z79.4 Long term (current) use of insulin; Z79.84 Long term (current) use of oral hypoglycemic drugs; Z79.890 Hormone replacement therapy; Z79.899 Other long term (current) drug therapy; Z86.718 Personal history of other venous thrombosis and embolism; Z90.710 Acquired absence of both cervix and uterus; Z98.49 Cataract extraction status, unspecified eye; Z90.49 Acquired absence of other specified parts of digestive tract; Z88.0 Allergy status to penicillin; Z88.2 Allergy status to sulfonamides; Z88.1 Allergy status to other antibiotic agents; Z68.42 Body mass index [BMI] 45.0-49.9, adult
CPT/HCPCS: 36415; 76770; 80048; 80053; 80177; 81001; 82043; 82150; 82570; 83036; 83605; 83690; 84300; 84540; 85025; 96361; 96374; 96376; 99284

== ENCOUNTER 2023-04-07 00:01 | Emergency (ER) | payer OTHER ==
[2023-04-07] MEDS ORDERED: ORPHENADRINE 30 MG/ML 2 ML VIAL IM STA (00:48)
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
[2023-04-07] MEDS: KETOROLAC 15 MG/ML 1 ML VIAL IM STA ×2 (01:00→01:01)
--- NOTE | 2023-04-07 02:02 | CT ---
ADDENDUM - Added by Neela Lay MD on 04/07/2023 2:02 AM (-07:00) EXAM: CT Head Without Intravenous Contrast CLINICAL HISTORY: ITS.REASON CT Reason: pain TECHNIQUE: Axial computed tomography images of the head/brain without intravenous contrast. CTDI is 45.2 mGy and DLP is 1063 mGy-cm. This CT exam was performed using one or more of the following dose reduction techniques: automated exposure control, adjustment of the mA and/or kV according to patient size, and/or use of iterative reconstruction technique. COMPARISON: 2012 FINDINGS: Brain: No hemorrhage or mass effect. Ventricles: No hydrocephalus. Bones/joints: Large 4.2 cm bony growth is again seen on the right side similar to 2013 Soft tissues: Unremarkable. Sinuses: No air fluid level. Mastoid air cells: Clear. IMPRESSION: No acute hemorrhage, hydrocephalus, or mass effect. EXAM: CT Head Without Intravenous Contrast CLINICAL HISTORY: ITS.REASON CT Reason: pain TECHNIQUE: Axial computed tomography images of the head/brain without intravenous contrast. CTDI is 45.2 mGy and DLP is 1063 mGy-cm. This CT exam was performed using one or more of the following dose reduction techniques: automated exposure control, adjustment of the mA and/or kV according to patient size, and/or use of iterative reconstruction technique. COMPARISON: No relevant prior studies available. FINDINGS: Brain: No hemorrhage or mass effect. Ventricles: No hydrocephalus. Bones/joints: Unremarkable. Soft tissues: Unremarkable. Sinuses: No air fluid level. Mastoid air cells: Clear. IMPRESSION: No acute hemorrhage, hydrocephalus, or mass effect. EXAM: CT Cervical Spine Without Intravenous Contrast CLINICAL HISTORY: ITS.REASON CT Reason: pain TECHNIQUE: Axial computed tomography images of the cervical spine without intravenous contrast. CTDI is 24 mGy and DLP is 611.3 mGy-cm. This CT exam was performed using one or more of the following dose reduction techniques: automated exposure control, adjustment of the mA and/or kV according to patient size, and/or use of iterative reconstruction technique. COMPARISON: No relevant prior studies available. FINDINGS: Vertebrae: No acute fracture. Discs/spinal canal/neural foramina: degenerative changes. Soft tissues: No prevertebral swelling. IMPRESSION: No acute fracture or subluxation.
--- NOTE | 2023-04-07 02:21 | XR ---
EXAM: XR Chest, 1 View CLINICAL HISTORY: ITS.REASON XR Reason: fall TECHNIQUE: Frontal view of the chest. COMPARISON: No relevant prior studies available. FINDINGS: Lungs: No consolidation or mass. Pleural space: No acute findings Heart: No cardiomegaly. Bones/joints: No acute findings. IMPRESSION: No acute cardiopulmonary process.
[2023-04-07] MEDS ORDERED: HYDROcodone/APAP 10-325MG 1 EACH TAB PO ONE (02:38)
[2023-04-07 03:15] VITALS: BP 108/80; PULSE 81; RESP 18; TEMP 98.2
== END 2023-04-07 03:14 | disposition home or self-care (01) ==
LOC: EC 00:01
DX: M79.10 Myalgia, unspecified site (principal); J45.909 Unspecified asthma, uncomplicated; I10 Essential (primary) hypertension; M19.90 Unspecified osteoarthritis, unspecified site; E11.9 Type 2 diabetes mellitus without complications; E66.01 Morbid (severe) obesity due to excess calories; Z86.718 Personal history of other venous thrombosis and embolism; Z88.0 Allergy status to penicillin; Z88.2 Allergy status to sulfonamides; Z88.8 Allergy status to other drugs, medicaments and biological substances; Z91.040 Latex allergy status; Z68.43 Body mass index [BMI] 50.0-59.9, adult; Z79.4 Long term (current) use of insulin; Z79.84 Long term (current) use of oral hypoglycemic drugs; Z79.51 Long term (current) use of inhaled steroids; Z79.899 Other long term (current) drug therapy; W01.198A Fall on same level from slipping, tripping and stumbling with subsequent striking against other object, initial encounter
CPT/HCPCS: 71045; 72125; 70450; 99284; 96372 ×2; J2360; J1885

== ENCOUNTER 2023-06-28 23:21 | Emergency (ER) | payer OTHER ==
[2023-06-28 23:49] VITALS: TEMP 98.2
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
[2023-06-29] MEDS ORDERED: HYDROcodone/APAP 10-325MG 1 EACH TAB PO ONE (01:05)
--- NOTE | 2023-06-29 01:43 | XR ---
EXAM: XR Right Foot Complete, 3 or More Views CLINICAL HISTORY: ITS.REASON XR Reason: fall TECHNIQUE: Frontal, lateral and oblique views of the right foot. COMPARISON: No relevant prior studies available. FINDINGS: Bones/joints: Fusion of the subtalar joint. Screw fragment remains within the talar dome. Remote healed fracture of the fifth metatarsal. Degenerative joint disease of the metatarsal tarsal joints. Soft tissues: Dorsal soft tissue swelling. No radiopaque foreign body. IMPRESSION: Dorsal soft tissue swelling. No underlying acute osseous abnormality.
--- NOTE | 2023-06-29 01:44 | XR ---
EXAM: XR Right Ankle Complete, 3 or More Views CLINICAL HISTORY: ITS.REASON XR Reason: fall TECHNIQUE: Frontal, lateral and oblique views of the right ankle. COMPARISON: No relevant prior studies available. FINDINGS: Bones/joints: Fusion of the subtalar joint. Portion of a metal screw remains within the talar dome. Diffuse sclerosis of the distal fibular shaft likely related to prior healed fracture. Soft tissues: Unremarkable. IMPRESSION: No acute findings in the right ankle.
[2023-06-29 02:23] VITALS: BP 133/82; PULSE 70; RESP 20
== END 2023-06-29 01:53 | disposition home or self-care (01) ==
LOC: EC 23:21
DX: S93.601A Unspecified sprain of right foot, initial encounter (principal); E11.36 Type 2 diabetes mellitus with diabetic cataract; I10 Essential (primary) hypertension; J45.909 Unspecified asthma, uncomplicated; K21.9 Gastro-esophageal reflux disease without esophagitis; M79.7 Fibromyalgia; G40.909 Epilepsy, unspecified, not intractable, without status epilepticus; M19.90 Unspecified osteoarthritis, unspecified site; E66.01 Morbid (severe) obesity due to excess calories; Z90.49 Acquired absence of other specified parts of digestive tract; Z79.84 Long term (current) use of oral hypoglycemic drugs; Z79.85 Long-term (current) use of injectable non-insulin antidiabetic drugs; Z79.4 Long term (current) use of insulin; Z79.899 Other long term (current) drug therapy; Z88.0 Allergy status to penicillin; Z91.040 Latex allergy status; Z88.2 Allergy status to sulfonamides; Z88.1 Allergy status to other antibiotic agents; Z88.8 Allergy status to other drugs, medicaments and biological substances; Z91.09 Other allergy status, other than to drugs and biological substances; Z68.43 Body mass index [BMI] 50.0-59.9, adult; V00.141A Fall from scooter (nonmotorized), initial encounter; Y92.410 Unspecified street and highway as the place of occurrence of the external cause
CPT/HCPCS: 99283

== ENCOUNTER 2023-07-24 05:11 | Emergency (ER) | payer OTHER ==
[2023-07-24 05:33] VITALS: RESP 18; TEMP 98.4
[2023-07-24] MEDS ORDERED: KETOROLAC 15 MG/ML 1 ML VIAL IVP STA (07:30)
[2023-07-24] MEDS ORDERED: CYCLOBENZAPRINE 10 MG TAB PO STA (08:04)
--- NOTE | 2023-07-24 08:09 | XR ---
EXAMINATION TYPE: XR chest 2V DATE OF EXAM: 07/24/2023 COMPARISON: 04/07/2023 INDICATION: Neck pain TECHNIQUE: Frontal and lateral views of the chest are obtained. FINDINGS: The heart size is normal. The pulmonary vasculature is normal. The lungs are clear. IMPRESSION: 1. No acute pulmonary process.
--- NOTE | 2023-07-24 08:11 | XR ---
EXAMINATION TYPE: XR cervical spine comp DATE OF EXAM: 07/24/2023 COMPARISON: 01/25/2022 HISTORY: Neck pain TECHNIQUE: 5 view cervical spine FINDINGS: Vertebral body spurring is present anteriorly 4 C5. Vertebral body heights are preserved. D isc heights are preserved. Posterior spinal lamellar line is intact. Foramina are largely patent. Tip e mild narrowing of C4-5 on the left may be present and C5-6 on the right. Odontoid is limited due to occiput. IMPRESSION: 1. Mild foraminal narrowing as discussed above. 2. No acute osseous abnormality.
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
[2023-07-24] MEDS ORDERED: KETOROLAC 15 MG/ML 1 ML VIAL IM STA (09:03)
[2023-07-24 09:24] VITALS: BP 124/84; PULSE 76
== END 2023-07-24 09:15 | disposition home or self-care (01) ==
LOC: EC 05:11
DX: S16.1XXA Strain of muscle, fascia and tendon at neck level, initial encounter (principal); J45.909 Unspecified asthma, uncomplicated; E11.9 Type 2 diabetes mellitus without complications; K21.9 Gastro-esophageal reflux disease without esophagitis; I10 Essential (primary) hypertension; M19.90 Unspecified osteoarthritis, unspecified site; Z86.718 Personal history of other venous thrombosis and embolism; Z88.0 Allergy status to penicillin; Z88.2 Allergy status to sulfonamides; Z91.040 Latex allergy status; Z88.8 Allergy status to other drugs, medicaments and biological substances; Z79.4 Long term (current) use of insulin; Z79.84 Long term (current) use of oral hypoglycemic drugs; Z79.899 Other long term (current) drug therapy; X50.3XXA Overexertion from repetitive movements, initial encounter
CPT/HCPCS: 93005; 72050; 71046; 99283; 96372; J1885

== ENCOUNTER → 2023-08-29 | Outpatient (CLI) | payer OTHER ==
--- NOTE | 2023-08-30 08:58 | XR ---
EXAMINATION TYPE: XR shoulder complete 3 views LT DATE OF EXAM: 08/29/2023 Comparison: 01/25/2022 Clinical History: 58-year-old female M25.512 PAIN IN LEFT SHOULDER Findings: Mild degenerative spurring and joint space narrowing at the AC joint. There is moderate degenerative change of the glenohumeral joint with prominent degenerative spurring and joint space narrowing. No a cute fracture, subluxation or dislocation is seen. Impression: Similar moderate glenohumeral joint OA. Mild AC joint OA. No acute osseous abnormality seen.
== END | disposition home or self-care (01) ==
LOC: RADXRMAIN 17:16
PROVIDERS: ATTEND Internal Medicine
DX: M19.012 Primary osteoarthritis, left shoulder (principal)

== ENCOUNTER → 2023-08-29 | Outpatient (CLI) | payer OTHER ==
[2023-08-30 02:50] LABS: Basophils # (A) 0.12 X 10*3/uL (0.00-0.10); Basophils % (A) 1.3 %; Eosinophils # (A) 0.42 X 10*3/uL (0.04-0.35); Eosinophils % (A) 4.4 %; HCT 50.1 % (37.2-46.3); HGB 15.8 g/dL (12.0-15.0); Lymphocytes # (A) 3.13 X 10*3/uL (0.90-5.00); Lymphocytes % (A) 32.9 %; MCHC 31.5 g/dL (32.0-37.0); MCV 92.1 FL (80.0-97.0); Mean Platelet Volume 11.3 FL (9.5-12.2); Monocytes % (A) 7.4 %; NRBC Per 100 WBC 0 X 10*3/uL (0.00-0.01); Neutrophils # (A) 5.05 X 10*3/uL (1.80-7.70); Neutrophils % (A) 53.2 %; Platelet Count 297 X 10*3/uL (140-440); RBC 5.44 X 10*6/uL (4.10-5.20); RDW 13.1 % (11.5-14.5)
[2023-08-30 03:50] LABS: % Iron Saturation 28.89 (12.00-45.00); ALT 16 U/L (8-44); AST 16 U/L (13-35); Albumin 4.4 g/dL (3.8-4.9); Albumin/Globulin Ratio 1.42 Ratio (1.60-3.17); Alkaline Phosphatase 133 U/L (41-126); BUN/Creat Ratio 15.74 Ratio (12.00-20.00); Blood Urea Nitrogen 36.2 mg/dL (9.0-27.0); Calcium 10.4 mg/dL (8.7-10.3); Carbon Dioxide 24.1 mmol/L (21.6-31.8); Chloride 96 mmol/L (96-109); Chol/HDL Ratio 2.28 Ratio; Ferritin 86.3 ng/mL (10.0-291.0); Globulin 3.1 g/dL (1.6-3.3); Glucose 368 mg/dL (70-110); Iron 104 UG/DL (50-170); LDL Cholesterol,Calculated 40.9 mg/dL (0.0-131.0); Magnesium 1.7 mg/dL (1.5-2.4); Phosphorus 4.4 mg/dL (2.4-5.1); Potassium 5.1 mmol/L (3.5-5.5); Sodium 138 mmol/L (135-145); Total Bilirubin 0.5 mg/dL (0.3-1.2); Total Iron Binding Capacity 360 UG/DL (228-460); Total Protein 7.5 g/dL (6.2-8.2); Uric Acid 6.5 mg/dL (2.9-7.7)
== END | disposition home or self-care (01) ==
LOC: LABWHC1 15:34
PROVIDERS: ATTEND Internal Medicine Gastroenterology
DX: E11.65 Type 2 diabetes mellitus with hyperglycemia (principal); E11.22 Type 2 diabetes mellitus with diabetic chronic kidney disease; N18.31 Chronic kidney disease, stage 3a; D63.1 Anemia in chronic kidney disease; K74.3 Primary biliary cirrhosis; N39.0 Urinary tract infection, site not specified; M10.9 Gout, unspecified; E55.9 Vitamin D deficiency, unspecified
CPT/HCPCS: 36415; 80053; 80061; 82043; 82306; 82570; 82728; 83036; 83540; 83550; 83735; 83970; 84100; 84550; 85025

== ENCOUNTER → 2023-10-18 | Outpatient (CLI) | payer OTHER ==
--- NOTE | 2023-10-18 16:53 | XR ---
EXAMINATION TYPE: XR foot complete RT DATE OF EXAM: 10/18/2023 3:11 PM CLINICAL INDICATION:Female, 58 years old with history of S99.921A UNSPECIFIED INJURY OF RIGHT FOOT, I NITIAL COMPARISON: 04/01/2021 TECHNIQUE: XR foot complete RT examined in the AP, oblique, and lateral projections. FINDINGS: Soft tissue swelling throughout the foot. There is fixation screw noted in the talus. Unchanged from prior. Multifocal degeneration changes with osteophyte and joint space narrowing worse in the mid and hindfoot. Remote appearing injury of the left fifth metatarsal. No acute fractures definitively visu alized. IMPRESSION: Soft tissue swelling throughout the foot without evidence of fracture.
== END | disposition home or self-care (01) ==
LOC: RADXRMAIN 14:48
PROVIDERS: ATTEND Internal Medicine
DX: M79.89 Other specified soft tissue disorders (principal); S99.921A Unspecified injury of right foot, initial encounter; X58.XXXA Exposure to other specified factors, initial encounter

== ENCOUNTER → 2023-11-04 | Outpatient (CLI) | payer OTHER ==
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
== END | disposition home or self-care (01) ==
LOC: RADNMMAIN 07:28
PROVIDERS: ATTEND Internal Medicine
DX: S92.354G Nondisplaced fracture of fifth metatarsal bone, right foot, subsequent encounter for fracture with delayed healing (principal)
CPT/HCPCS: 78315; A9503

== ENCOUNTER 2023-12-07 18:21 | Emergency (ER) | payer OTHER ==
[2023-12-07 18:45] VITALS: RESP 16; TEMP 97.9
[2023-12-07] MEDS: MORPHINE SULFATE 4 MG/ML SYRINGE IM STA (20:09)
[2023-12-07] MEDS: LIDOCAINE 4% PATCH TOPICAL ONE (20:09)
--- NOTE | 2023-12-07 20:54 | XR ---
EXAMINATION TYPE: XR lumbar spine 2 or 3V DATE OF EXAM: 12/07/2023 8:44 PM CLINICAL INDICATION:Female, 58 years old with history of back pain; [facility] COMPARISON: None TECHNIQUE: Frontal, lateral and coned in L5-S1 lateral views of the spine. FINDINGS: No evidence of any acute osseous pathology. No evidence of loss of vertebral body height i s seen. Grade 1 anterolisthesis of L5 on S1. Mild scattered disc space narrowing. There is facet join t arthropathy throughout the spine. Scattered at least mild neural foraminal stenosis. IMPRESSION: 1. No acute fracture. 2. Mild multilevel disc degeneration.
--- NOTE | 2023-12-07 20:55 | XR ---
EXAMINATION TYPE: XR foot complete RT DATE OF EXAM: 12/07/2023 8:44 PM CLINICAL INDICATION:Female, 58 years old with history of fall, foot pain; [facility] COMPARISON: Right foot radiograph 10/24/2023 TECHNIQUE: The foot was examined in the AP, oblique, and lateral projections. FINDINGS: No evidence of any acute osseous pathology. No evidence of soft tissue swelling. Joints are preserve d. Fixation anchor identified in the talus. Remote fifth metatarsal injury. Small plantar enthesophyt e. IMPRESSION: No evidence of acute fracture.
[2023-12-07] MEDS: ONDANSETRON 4 MG TAB PO STA (21:24)
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
[2023-12-07 22:36] VITALS: BP 106/48; PULSE 88
== END 2023-12-07 22:25 | disposition home or self-care (01) ==
LOC: EC 18:21
DX: M54.50 Low back pain, unspecified (principal); E66.01 Morbid (severe) obesity due to excess calories; Z68.34 Body mass index [BMI] 34.0-34.9, adult; W05.0XXA Fall from non-moving wheelchair, initial encounter; Y92.009 Unspecified place in unspecified non-institutional (private) residence as the place of occurrence of the external cause
CPT/HCPCS: 72100; 73630; 99283; 96372; J2270

== ENCOUNTER 2023-12-07 23:01 | Emergency (ER) | payer OTHER ==
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
[2023-12-07 23:51] VITALS: TEMP 98.1
--- NOTE | 2023-12-08 00:33 | CT ---
EXAM: CT Head Without Intravenous Contrast CLINICAL HISTORY: ITS.REASON CT Reason: fall TECHNIQUE: Axial computed tomography images of the head/brain without intravenous contrast. CTDI is 13.4 mGy and DLP is 394.1 mGy-cm. This CT exam was performed using one or more of the following dose reduction techniques: automated exposure control, adjustment of the mA and/or kV according to patient size, and/or use of iterative reconstruction technique. COMPARISON: No relevant prior studies available. FINDINGS: No acute intracranial hemorrhage. No midline shift or mass effect. The territorial coyne-white matter differentiation is maintained throughout. The ventricles and sulci are commensurate with age. The visualized orbits appear grossly unremarkable. Severe thickening of the RIGHT and both calvarium. The visualized paranasal sinuses and mastoid air cells are grossly clear. IMPRESSION: No acute intracranial hemorrhage, midline shift, or mass effect. EXAM: CT Cervical Spine Without Intravenous Contrast CLINICAL HISTORY: ITS.REASON CT Reason: fall TECHNIQUE: Axial computed tomography images of the cervical spine without intravenous contrast. CTDI is 17.1 mGy and DLP is 465.5 mGy-cm. This CT exam was performed using one or more of the following dose reduction techniques: automated exposure control, adjustment of the mA and/or kV according to patient size, and/or use of iterative reconstruction technique. COMPARISON: No relevant prior studies available. FINDINGS: The vertebral body heights are maintained. The craniocervical junction is intact. The atlanto-dens interval is maintained. The dens is intact. There is no spondylolisthesis. Multilevel cervical spondylosis and degenerative disc disease. Straightening of the cervical lordosis. The unenhanced neck soft tissues are grossly unremarkable. The visualized lung apices are grossly clear. IMPRESSION: No acute fracture or subluxation of the cervical spine.
--- NOTE | 2023-12-08 00:40 | CT ---
EXAM: CT Maxillofacial Without Intravenous Contrast CLINICAL HISTORY: ITS.REASON CT Reason: fall TECHNIQUE: Axial computed tomography images of the face without intravenous contrast. CTDI is 13.4 mGy and DLP is 394.1 mGy-cm. This CT exam was performed using one or more of the following dose reduction techniques: automated exposure control, adjustment of the mA and/or kV according to patient size, and/or use of iterative reconstruction technique. COMPARISON: No relevant prior studies available. FINDINGS: The mandible is intact. Intact maxillary alveolus. The orbital rims and floors are intact. The intraorbital contents are grossly unremarkable. Intact nasal bones, nasal septum, and maxillary spines. The zygomatic arches and pterygoid processes are intact. IMPRESSION: No facial bone fracture.
[2023-12-08 01:36] VITALS: BP 110/80; PULSE 84; RESP 18
== END 2023-12-08 01:31 | disposition home or self-care (01) ==
LOC: EC 23:01
DX: S05.12XA Contusion of eyeball and orbital tissues, left eye, initial encounter (principal); Z88.0 Allergy status to penicillin; Z88.2 Allergy status to sulfonamides; Z91.040 Latex allergy status; Z88.1 Allergy status to other antibiotic agents; Z91.09 Other allergy status, other than to drugs and biological substances; Z88.8 Allergy status to other drugs, medicaments and biological substances; W01.0XXA Fall on same level from slipping, tripping and stumbling without subsequent striking against object, initial encounter
CPT/HCPCS: 70450; 70486; 72125; 99284

== ENCOUNTER 2024-07-26 02:11 | Emergency (ER) | payer OTHER ==
[2024-07-26 02:15] VITALS: RESP 18
[2024-07-26] MEDS: DIPHENOX-ATROP 2.5-0.025 MG 1 EACH TAB PO STA (02:32)
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
[2024-07-26] MEDS: SODIUM CHLORIDE 0.9% 1,000 ML IV STA (02:54)
[2024-07-26 02:59] LABS: Basophils # (A) 0.1 k/uL (0-0.2); Basophils % (A) 1 %; Eosinophils # (A) 0.3 k/uL (0-0.7); Eosinophils % (A) 5 %; HCT 48.1 % (34.0-46.0); HGB 15.7 gm/dL (11.4-16.0); Lymphocytes # (A) 2.2 k/uL (1.0-4.8); Lymphocytes % (A) 35 %; MCHC 32.6 g/dL (31.0-37.0); MCV 91.9 fL (80.0-100.0); Monocytes # (A) 0.4 k/uL (0-1.0); Monocytes % (A) 6 %; Neutrophils # (A) 3.1 k/uL (1.3-7.7); Neutrophils % (A) 50 %; Platelet Count 269 k/uL (150-450); RBC 5.24 m/uL (3.80-5.40); RDW 13.5 % (11.5-15.5); WBC 6.2 k/uL (3.8-10.6)
[2024-07-26 03:08] LABS: ALT 67 U/L (4-34); AST 149 U/L (14-36); African American GFR (CKD) 46 (>60 ml/min/1.73 sqM); Albumin 4.8 g/dL (3.5-5.0); Alkaline Phosphatase 316 U/L (38-126); Amylase 51 U/L (30-110); Anion Gap 11 mmol/L; Blood Urea Nitrogen 36 mg/dL (7-17); Calcium 9.3 mg/dL (8.4-10.2); Carbon Dioxide 24 mmol/L (22-30); Chloride 101 mmol/L (98-107); Glucose 386 mg/dL (74-99); Lipase 60 U/L (23-300); Magnesium 1.8 mg/dL (1.6-2.3); Non-African American GFR(CKD) 40 (>60 ml/min/1.73 sqM); Sodium 136 mmol/L (137-145); Total Bilirubin 1.5 mg/dL (0.2-1.3); Total Protein 8.4 g/dL (6.3-8.2)
[2024-07-26 03:09] LABS: Potassium 5.1 mmol/L (3.5-5.1)
[2024-07-26 03:19] LABS: Appearance,Urine Cloudy (Clear); Bacteria,Urine Rare /hpf; Bilirubin,Urine Negative (Negative); Blood,Urine Trace (Negative); Budding Yeast,Urine Many /hpf; Color,Urine Colorless; Glucose,Urine (UA) 4+ (Negative); Ketones,Urine Negative (Negative); Leukocyte Esterase,Urine Large (Negative); Mucus,Urine Rare /hpf; Nitrite,Urine Negative (Negative); Protein,Urine Negative (Negative); RBC,Urine 8 /hpf (0-5); Specific Gravity,Urine 1.025 (1.001-1.035); Squamous Epithelial Cell,Urine 3 /hpf (0-4); Urobilinogen,Urine <2.0 mg/dL (<2.0); WBC,Urine >182 /hpf (0-5)
[2024-07-26] MEDS: DIPHENOX-ATROP STARTER PACK 8 TAB BTL PO STA (03:55)
[2024-07-26 04:02] VITALS: BP 112/78; PULSE 83; TEMP 97.7
== END 2024-07-26 04:10 | disposition home or self-care (01) ==
LOC: EC 02:11
DX: R19.7 Diarrhea, unspecified (principal); E11.22 Type 2 diabetes mellitus with diabetic chronic kidney disease; N18.9 Chronic kidney disease, unspecified; Z91.040 Latex allergy status; Z88.2 Allergy status to sulfonamides; Z88.0 Allergy status to penicillin; Z88.1 Allergy status to other antibiotic agents; Z88.8 Allergy status to other drugs, medicaments and biological substances; Z88.6 Allergy status to analgesic agent; Z91.048 Other nonmedicinal substance allergy status
CPT/HCPCS: 36415; 80053; 81001; 82150; 83605; 83690; 83735; 85025; 87086; 96360; 99283

== ENCOUNTER → 2024-09-24 | Outpatient (CLI) | payer OTHER ==
--- NOTE | 2024-09-24 16:29 | XR ---
EXAMINATION TYPE: XR shoulder complete LT DATE OF EXAM: 09/24/2024 4:16 PM COMPARISON: None CLINICAL INDICATION: Female, 59 years old with history of M25.512, pain TECHNIQUE: XR shoulder complete LT; examined in AP, internally rotated and scapular Y projections. FINDINGS: No evidence of acute osseous pathology, joint dislocation, or soft tissue swelling. The remaining po rtions of the visualized chest are unremarkable. Degeneration changes of the acromion, distal clavic le with osteophyte formation. There is osteophyte formation of the glenoid and humeral head. There is joint space narrowing of glenohumeral joint. IMPRESSION: 1. No acute osseous pathology. If there remains concern for fracture consider CT. 2. Mild shoulder osteoarthrosis. [facility], , 09/24/2024 4:26 PM
== END | disposition home or self-care (01) ==
LOC: RADXRMAIN 15:52
PROVIDERS: ATTEND Internal Medicine
DX: M19.012 Primary osteoarthritis, left shoulder (principal)

== ENCOUNTER 2024-12-14 16:53 | Emergency (ER) | payer OTHER ==
[2024-12-14] MEDS: KETOROLAC 15 MG/ML 1 ML VIAL IM STA (17:47)
--- NOTE | 2024-12-14 18:07 | XR ---
EXAMINATION TYPE: XR knee complete LT DATE OF EXAM: 12/14/2024 6:01 PM COMPARISON: None. CLINICAL INDICATION: Female, 59 years old with history of pain, pain TECHNIQUE: Three views of the left knee are obtained. FINDINGS: There is no acute fracture/dislocation evident in left knee. The tri-compartment joint sp aces appear within normal limits. Soft tissue calcifications noted. IMPRESSION: There is no acute fracture or dislocation in the left knee. [facility], , 12/14/2024 6:04 PM
[2024-12-14 18:47] VITALS: BP 114/72; PULSE 88; RESP 18; TEMP 98
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
== END 2024-12-14 18:59 | disposition home or self-care (01) ==
LOC: EC 16:53
DX: M25.562 Pain in left knee (principal); Z88.0 Allergy status to penicillin; Z88.1 Allergy status to other antibiotic agents; Z88.2 Allergy status to sulfonamides; Z91.040 Latex allergy status; Z91.09 Other allergy status, other than to drugs and biological substances; Z88.8 Allergy status to other drugs, medicaments and biological substances
CPT/HCPCS: 73562; 99283; 96372; J1885

== ENCOUNTER → 2024-12-14 | Outpatient (CLI) | payer OTHER ==
--- NOTE | 2024-12-14 14:51 | US ---
EXAMINATION TYPE: US carotid duplex BILAT DATE OF EXAM: 12/14/2024 COMPARISON: NONE CLINICAL INDICATION: Female, 59 years old with history of I65.23 STENOSIS; Stenosis. Hx hypertension , diabetes. Additional History: .... TECHNIQUE: Grayscale, color Doppler and spectral Doppler evaluation of the bilateral carotid systems and vertebral arteries. Indirect Doppler criteria was utilized. FINDINGS: EXAM MEASUREMENTS: RIGHT: Peak Systolic Velocity (PSV) cm/sec ----- Right CCA: 72.4 ----- Right ICA: 82.0 ----- Right ECA: 87.9 ICA/CCA ratio: 1.1 RIGHT: End Diastole cm/sec ----- Right CCA: 19.7 ----- Right ICA: 12.8 ----- Right ECA: 0.0 LEFT: Peak Systolic Velocity (PSV) cm/sec ----- Left CCA: 62.5 ----- Left ICA: 96.3 ----- Left ECA: 54.0 ICA/CCA ratio: 1.5 LEFT: End Diastole cm/sec ----- Left CCA: 16.2 ----- Left ICA: 38.0 ----- Left ECA: 0.0 VERTEBRALS (direction of flow): Right Vertebral: Antegrade Left Vertebral: Antegrade Rhythm: Normal [employer] NOTES: No elevated velocities. ICA appears tortuous on the right - difficult to follow - limited. Color Doppler imaging shows patency with blood flow throughout the carotid artery. IMPRESSION: 1. No significant flow-limiting stenosis based on velocities. Criteria for Assigning % of Stenosis / Diameter reduction (Estimation based on the indirect measurements of the internal carotid artery velocities (ICA PSV). 1. Normal (no stenosis)=ICA PSV < 180 cm/s: ratio < 2.0: ICA EDV<40 cm/s. 2. Less than 50% stenosis=ICA PSV < 180 cm/s: ratio < 2.0: ICA EDV<40 cm/s. 3. 50 to 69% stenosis=ICA PSV of 180 to 230 cm/s: ration 2.0 ? 4.0: ICA EDV 40-100 cm/s. PSV 125-180 cm/sec and ICA/CCA PSV Ratio ? 2.0 is also consistent with 50-69% stenosis 4. Greater than 70% stenosis to near occlusion= ICA PSV > 230 cm/s: ratio > 4.0: ICA EDV > 100 cm/s. 5. Near occlusion= ICA PSV velocities may be low or undetectable: variable ratio and ICA EDV. 6. Total occlusion=unable to detect flow. [facility], Workstation: [facility], 12/14/2024 2:49 PM
--- NOTE | 2024-12-14 17:03 | CA ---
Transthoracic Echo Report Name: Jessica Mcdonough Age: 59 Gender: F : 1965 Exam Date: 12/14/2024 16:13 Exam Location: [facility] Ht (in): 65 Wt (lb): 302 Ordering Physician: Sarah Costello MD Attending/Referring Phys: Geraldine Templeton MD Physics Professor Nancy Trejo, PAVITHRA Procedure CPT: Indications: I25.10 Cardiac Hx: Technical Quality: Technically difficult study Contrast 1: Total Dose (mL): Contrast 2: Total Dose (mL): MEASUREMENTS (Male / Female) Normal Values 2D ECHO LV Diastolic Diameter PLAX 4.1 cm 4.2 - 5.9 / 3.9 - 5.3 cm LV Systolic Diameter PLAX 2.9 cm IVS Diastolic Thickness 1.1 cm 0.6 - 1.0 / 0.6 - 0.9 cm LVPW Diastolic Thickness 1.1 cm 0.6 - 1.0 / 0.6 - 0.9 cm LV Relative Wall Thickness 0.6 RV Internal Dim ED PLAX 3.5 cm LA Systolic Diameter LX 3.7 cm 3.0 - 4.0 / 2.7 - 3.8 cm LV Diastolic Volume MOD 4C 92.6 cm??? LV Systolic Volume MOD 4C 44.3 cm??? LV Ejection Fraction MOD 4C 52.2 % LV Cardiac Index MOD 4C 1905.6 cm???/min???m??? LV Diastolic Length 4C 6.3 cm LV Systolic Length 4C 5.1 cm LA Volume 22.1 cm??? 18 - 58 / 22 - 52 cm??? LA Volume Index 8.6 cm???/m??? 16 - 28 cm???/m??? M-MODE Aortic Root Diameter MM 3.9 cm DOPPLER TR Peak Velocity 175.8 cm/s TR Peak Gradient 12.4 mmHg Right Ventricular Systolic Press 17.4 mmHg FINDINGS Left Ventricle Left ventricular ejection fraction is estimated at 50-55 %. Left ventricular cavity size normal. Left ventricular systolic function borderline normal. Right Ventricle Right ventricular systolic pressure within normal limits. Right Atrium Right atrium not well visualized. Left Atrium Normal left atrial size. No left atrial thrombus or mass present. Mitral Valve Mitral valve thickened. Calcified chordae. Mitral annular calcification. Aortic Valve Aortic valve not well visualized. Tricuspid Valve Tricuspid valve not well visualized. Pulmonic Valve Pulmonic valve not well visualized. Pericardium No pericardial effusion. Aorta Mild aortic dilatation at the level of the sinuses of valsalva 39 mm CONCLUSIONS Technically difficult study. The overall left ventricular systolic function of the left ventricle appears to be borderline normal Calcified mitral valve leaflets and chordae Very limited Doppler study Previewed by: Dr. Arnoldo Flores MD (Electronically Signed) Final Date: 14 December 2024 17:03
--- NOTE | 2024-12-17 07:15 | MM ---
Reason for Exam: Screening (asymptomatic). Last mammogram was performed 1 year(s) and 7 month(s) ago. Patient History: Menarche at age 9. First Full-Term at age 17. Hysterectomy at age 36. Postmenopausal. 04/03/2007, Cancelled Right US Needle Biopsy on the right side. Mother had breast cancer, age 60. Risk Values: Patricia 5 year model risk: 2.8%. NCI Lifetime model risk: 14.8%. Prior Study Comparison: 10/24/2020 Bilateral Screening Mammogram, [facility]. 11/13/2021 Bilateral Screening Mammogram, [facility]. 05/16/2023 Bilateral MG 3D screening mammo w/cad, [facility]. Tissue Density: There are scattered areas of fibroglandular density. Analyzed By CAD. Overall Assessment: Benign, BI-RAD 2 Management: Screening Mammogram of both breasts in 1 year. Electronically signed and approved by: Jet Mooney M.D.
== END | disposition home or self-care (01) ==
LOC: RADUSWWP 13:36
PROVIDERS: ATTEND Internal Medicine
DX: Z12.31 Encounter for screening mammogram for malignant neoplasm of breast (principal); I25.10 Atherosclerotic heart disease of native coronary artery without angina pectoris; I65.23 Occlusion and stenosis of bilateral carotid arteries; R92.323 Mammographic fibroglandular density, bilateral breasts; I34.81 Nonrheumatic mitral (valve) annulus calcification; Z78.0 Asymptomatic menopausal state; Z80.3 Family history of malignant neoplasm of breast
CPT/HCPCS: 77063; 77067; 93306; 93880

== ENCOUNTER 2025-02-28 02:58 | Emergency (ER) | payer OTHER ==
--- NOTE | 2025-02-28 04:29 | XR ---
EXAM: XR Left Knee, 3 Views CLINICAL HISTORY: ITS.REASON XR Reason: injury TECHNIQUE: Three views of the left knee. COMPARISON: X-ray dated 12/14/2024. FINDINGS: Bones/joints: Mild tricompartment degenerative change. No acute fracture. No dislocation. Soft tissues: Unremarkable. Vasculature: Likely phleboliths are seen within the anterior lower extremity. IMPRESSION: No acute findings in the left knee.
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
[2025-02-28 04:57] VITALS: BP 124/83; PULSE 88; RESP 20; TEMP 97.8
== END 2025-02-28 04:57 | disposition home or self-care (01) ==
LOC: EC 02:58
DX: M25.562 Pain in left knee (principal); Z88.0 Allergy status to penicillin; Z88.1 Allergy status to other antibiotic agents; Z88.2 Allergy status to sulfonamides; Z91.040 Latex allergy status; Z88.8 Allergy status to other drugs, medicaments and biological substances
CPT/HCPCS: 99283

== ENCOUNTER → 2025-03-07 | Outpatient (CLI) | payer OTHER ==
[2025-03-07 15:16] LABS: Basophils # (A) 0.08 X 10*3/uL (0.00-0.10); Basophils % (A) 1.3 %; Eosinophils # (A) 0.43 X 10*3/uL (0.04-0.35); Eosinophils % (A) 6.9 %; HCT 43.0 % (37.2-46.3); HGB 13.3 g/dL (12.0-15.0); Immature Grans, Automated 0.30 %; Lymphocytes # (A) 2.56 X 10*3/uL (0.90-5.00); Lymphocytes % (A) 40.8 %; MCH 28.5 pg (27.0-32.0); MCHC 30.9 g/dL (32.0-37.0); MCV 92.3 FL (80.0-97.0); Monocytes # (A) 0.54 X 10*3/uL (0.20-1.00); Monocytes % (A) 8.6 %; NRBC Per 100 WBC 0 X 10*3/uL (0.00-0.01); Neutrophils # (A) 2.64 X 10*3/uL (1.80-7.70); Neutrophils % (A) 42.1 %; Platelet Count 241 X 10*3/uL (140-440); RBC 4.66 X 10*6/uL (4.10-5.20); RDW 14.1 % (11.5-14.5); WBC 6.27 X 10*3/uL (4.50-10.00)
[2025-03-07 15:18] LABS: ALT 20 U/L (8-44); AST 21 U/L (13-35); Albumin 3.9 g/dL (3.8-4.9); Albumin/Globulin Ratio 1.34 Ratio (1.60-3.17); Alkaline Phosphatase 125 U/L (41-126); Anion Gap 12.90 mmol/L (4.00-12.00); BUN/Creat Ratio 26.27 Ratio (12.00-20.00); Blood Urea Nitrogen 39.4 mg/dL (9.0-27.0); Calcium 9.1 mg/dL (8.7-10.3); Carbon Dioxide 25.1 mmol/L (21.6-31.8); Chloride 100 mmol/L (96-109); Globulin 2.9 g/dL (1.6-3.3); Glucose 299 mg/dL (70-110); Potassium 4.7 mmol/L (3.5-5.5); Sodium 138 mmol/L (135-145); Total Protein 6.8 g/dL (6.2-8.2)
== END | disposition home or self-care (01) ==
LOC: LABWHC1 09:44
PROVIDERS: ATTEND Nurse Practitioner Family
DX: K74.3 Primary biliary cirrhosis (principal)
CPT/HCPCS: 36415; 80053; 85025

== ENCOUNTER → 2025-03-08 | Outpatient (CLI) | payer OTHER ==
--- NOTE | 2025-03-08 09:38 | US ---
EXAMINATION TYPE: US venous doppler duplex LE BI DATE OF EXAM: 03/08/2025 9:24 AM COMPARISON: NONE CLINICAL INDICATION: Female, 59 years old with history of R60.0 LOCALIZED EDEMA; Obese patient with l eft leg pain TECHNIQUE: The lower extremity deep venous system is examined utilizing real time linear array sonog german with graded compression, doppler sonography and color-flow sonography. Grayscale, color doppler , spectral doppler imaging performed of the deep veins of the lower extremities FINDINGS: SIDE PERFORMED: Bilateral VESSELS IMAGED: Common Femoral Vein Deep Femoral Vein Greater Saphenous Vein * Femoral Vein Popliteal Vein Small Saphenous Vein * Proximal Calf Veins (* superficial vessels) Right Leg: Negative for DVT; There is normal flow, compressibility, vascular waveforms. Left Leg: Negative for DVT; There is normal flow, compressibility, vascular waveforms. IMPRESSION: No evidence for deep vein thrombosis. [facility], , 03/08/2025 9:35 AM
[2025-03-08 15:08] LABS: Bilirubin,Urine Negative (Negative); Blood,Urine Negative (Negative); Color,Urine Yellow (Yellow); Ketones,Urine Negative (Negative); Nitrite,Urine Negative (Negative); PH, Urine 6.5; Specific Gravity,Urine 1.024 (1.001-1.030); Urobilinogen,Urine 0.2 E.U./DL
[2025-03-08 15:36] LABS: Bacteria,Urine None Seen (None Seen); Yeast (UA) Present (None Seen)
[2025-03-08 15:48] LABS: Albumin 3.8 g/dL (3.8-4.9); Ferritin 32.8 ng/mL (10.0-291.0); Iron 95.0 UG/DL (50-170); Magnesium 1.8 mg/dL (1.5-2.4); Total Iron Binding Capacity 372.0 UG/DL (228-460); Uric Acid 5.4 mg/dL (2.9-7.7)
== END | disposition home or self-care (01) ==
LOC: RADUSWWP 08:43
PROVIDERS: ATTEND Internal Medicine
DX: R60.0 Localized edema (principal); E55.9 Vitamin D deficiency, unspecified; E66.9 Obesity, unspecified
CPT/HCPCS: 81001; 82040; 82043; 82306; 82570; 82728; 83540; 83550; 83735; 83970; 84100; 84550; 93970